=== PATIENT | female | born 1945 | race Caucasian/White ===

== ENCOUNTER 2016-12-03 | Outpatient (CLI) | payer MEDICARE | END 2016-12-03 06:42 | disposition critical access hospital (66) | CPT/HCPCS: A0425; A0429 ==

== ENCOUNTER 2016-12-03 06:52 | Emergency (ER) | payer MEDICARE ==
[2016-12-03] MEDS ORDERED: SODIUM CHLORIDE 0.9% 1,000 ML IV ONE (07:36)
[2016-12-03] MEDS ORDERED: ONDANSETRON 4 MG/2 ML VIAL IVP STA (07:36)
[2016-12-03] MEDS ORDERED: ONDANSETRON 4 MG/2 ML VIAL ONE (07:45)
[2016-12-03] MEDS ORDERED: METOPROLOL 5 MG/5 ML VIAL IVP STA (08:50)
[2016-12-03] MEDS ORDERED: METOPROLOL 5 MG/5 ML VIAL IVP ONE (08:57)
[2016-12-03] MEDS ORDERED: ATENOLOL 25 MG TABLET PO STA (09:45)
[2016-12-03] MEDS ORDERED: ATENOLOL 25 MG TABLET ONE (09:48)
== END 2016-12-03 10:44 | disposition home or self-care (01) ==
DX: I48.91 Unspecified atrial fibrillation (principal); J06.9 Acute upper respiratory infection, unspecified; R11.2 Nausea with vomiting, unspecified; I11.0 Hypertensive heart disease with heart failure; I50.9 Heart failure, unspecified; E11.42 Type 2 diabetes mellitus with diabetic polyneuropathy; E11.51 Type 2 diabetes mellitus with diabetic peripheral angiopathy without gangrene; Z79.4 Long term (current) use of insulin; Z91.81 History of falling; Z87.891 Personal history of nicotine dependence
CPT/HCPCS: 36415; 71020; 80053; 83690; 83735; 83880; 85025; 93005; 93010; 96361; 96374; 96375; 99284; A9270

== ENCOUNTER 2017-01-11 11:16 | Outpatient (CLI) | payer MEDICARE | END 2017-01-11 11:17 | disposition home or self-care (01) | DX: I50.9 Heart failure, unspecified (principal); I48.91 Unspecified atrial fibrillation; I51.7 Cardiomegaly ==

== ENCOUNTER 2017-01-27 20:01 | Emergency (ER) | payer MEDICARE ==
[2017-01-27 20:10] VITALS: BP 124/63
--- NOTE | 2017-01-27 21:37 | XRAY Preliminary Report ---
Exam: XR Chest 2 View PA/LAT IMPRESSION: Hypoaeration without acute consolidation or pneumothorax. [facility] SITE ID: [id number]
--- NOTE | 2017-01-27 21:39 | XRAY Report ---
EXAM: CHEST RADIOGRAPHY EXAM DATE: 01/27/2017 08:56 PM. CLINICAL HISTORY: Left lower chest pain; fell one week ago. COMPARISON: Chest x-ray 12/03/2016. TECHNIQUE: 2 views. FINDINGS: Lungs/Pleura: Hypoaeration without pleural effusion or pneumothorax. No focal consolidation. Mediastinum: Normal heart size with atherosclerotic calcification. Other: None. IMPRESSION: Hypoaeration without acute consolidation or pneumothorax. [facility] Referring Provider Line: [phone] SITE ID: [id number]
--- NOTE | 2017-01-27 21:40 | ED Physician Documentation ---
History of Present Illness - Stated complaint Stated Complaint: NECK/CHEST/ABD PX - Chief complaint Chief Complaint: General - History obtained from History obtained from: Patient, Family (daughter) - History of Present Illness Timing: How many weeks ago (1) - Additonal information Additional information: The patient is a 71-year-old female who complains of pain in her left lower chest, upper abdomen, as well as the left side of her neck. Her symptoms started after falling 1 week ago when she tripped over her dog. When she fell she impacted a chair with her left lower chest wall. She denies hitting her head or losing consciousness. She presents now because of persistence of the discomfort. It is worse with cough or deep inspiration. She denies fever, vomiting, headache, or dysuria. She does report frequency of urination. Review of Systems Constitutional: denies: Fever Eyes: denies: Irritation Ears: denies: Tinnitus/ringing Nose: denies: Congestion Throat: denies: Sore throat Cardiac: reports: Chest pain / pressure (Left lower chest discomfort at the costophrenic margin.) Respiratory: denies: Dyspnea, Cough GI: reports: Abdominal Pain (Left upper abdomen.). denies: Vomiting, Diarrhea : reports: Frequency. denies: Dysuria Skin: denies: Rash, Abrasion (s) Musculoskeletal: reports: Neck pain (Left sided neck discomfort.). denies: Extremity pain, Extremity swelling Neurologic: denies: Focal weakness, Numbness, Headache, Head injury PD PAST MEDICAL HISTORY - Past Medical History Cardiovascular: Congestive heart failure, Hypertension, High cholesterol, Peripheral Vascular Disease Respiratory: Pneumonia Neuro: Peripheral neuropathy, Tremors Endocrine/Autoimmune: Type 2 diabetes GI: Chronic constipation : None HEENT: Chronic vision loss, Chronic sinusitis, Other Psych: Depression, Anxiety, Panic attacks Musculoskeletal: None Derm: Eczema - Past Surgical History Past Surgical History: Yes General: Appendectomy, Bowel surgery, Other Ortho: Arthroscopic surgery, Carpal Tunnel surgery /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 Cardiovascular: Cardiac catheterization, Other HEENT: Tonsil/Adenoidectomy - Present Medications Home Medications: Ambulatory Orders Medication Instructions Recorded Confirmed Atenolol 50 mg PO BID 10/12/13 12/03/16 Atorvastatin Calcium 40 mg PO DAILY 10/12/13 12/03/16 Clonidine HCl 0.1 mg PO DAILY 10/12/13 12/03/16 Furosemide [Lasix] 80 mg PO DAILY 10/12/13 12/03/16 LORazepam [Ativan] 1 mg PO DAILY 10/12/13 12/03/16 Levothyroxine [Synthroid] 300 mcg PO DAILY 10/12/13 12/03/16 Losartan [Cozaar] 100 mg PO DAILY 10/12/13 12/03/16 Aspirin Chewable [St Sami 81 mg PO DAILY 03/30/14 12/03/16 Aspirin] Bisacodyl [Dulcolax] 100 mg PO DAILY 03/30/14 12/03/16 Insulin Glargine,Hum.rec.anlog 30 units SUBQ QPM 03/30/14 12/03/16 [Lantus] Insulin Glargine,Hum.rec.anlog 45 units SUBQ QDAC 03/30/14 12/03/16 [Lantus] Loratadine [Claritin] 10 mg PO DAILY 03/30/14 12/03/16 Potassium Chloride [Micro-K] 10 meq PO DAILY 03/30/14 12/03/16 Triamcinolone Acetonide 0.1 - 0.5 mg TOP DAILY PRN 03/30/14 12/03/16 Acetaminophen [Tylenol Extra 2 tab PO Q4HR 07/17/14 12/03/16 Strength] Albuterol Sulfate [Proair Hfa 2 puffs IH QID #1 hfa.aer.ad 12/03/16 Inhaler] Dexamethasone [Decadron] 4 mg PO DAILY #5 tablet 12/03/16 Escitalopram Oxalate [Lexapro] 1 tab PO DAILY 12/03/16 12/03/16 Ondansetron Odt [Zofran] 4 mg TL Q6H PRN #15 tablet 12/03/16 guaiFENesin/CODEINE [Robitussin AC] 10 ml PO Q6H PRN #240 ml 12/03/16 - Allergies Allergies/Adverse Reactions: Allergies Allergy/AdvReac Type Severity Reaction Status Date / Time tree nut Allergy Anaphylaxis Verified 01/27/17 20:11 Sulfa (Sulfonamide AdvReac Intermediate Edema Verified 12/03/16 07:08 Antibiotics) lisinopril AdvReac Itching Verified 12/03/16 07:08 - Social History Does the pt smoke?: No Smoking Status: Former smoker Does the pt drink ETOH?: No Does the pt have substance abuse?: No - Immunizations Immunizations are current?: Yes - POLST Patient has POLST: Yes PD ED PE NORMAL - Vitals Vital signs reviewed: Yes (normal) - General General: Alert and oriented X 3, Well developed/nourished - HEENT HEENT: Atraumatic, EOMI, Pharynx benign - Neck Neck: Supple, no meningeal sign, No bony TTP, No adenopathy, No JVD, Other ( There is mild tenderness to palpation over the left posterior cervical musculature. There is no tenderness to palpation over the spinous processes, and the patient can turn her head from side to side with no posterior cervical tenderness.) - Cardiac Cardiac: RRR, No murmur - Respiratory Respiratory: No respiratory distress, Clear bilaterally, Other (There is mild tenderness to palpation over the lower left chest wall in the anterior axillary line. There is no ecchymosis, break in the integument, or bony step-off palpated.) - Abdomen Abdomen: Soft, Non tender - Back Back: No CVA TTP, No spinal TTP - Derm Derm: No rash - Extremities Extremities: No edema, No calf tenderness / cord - Neuro Neuro: Alert and oriented X 3, No motor deficit, Normal speech, Other (There is gross tremor involving particularly the left upper extremity.) Results - Vitals Vitals: Oxygen O2 Source Room air - Rads (name of study) 2-view CXR Radiology: Prelim report reviewed, EMP read contemporaneously, See rad report ( Hypoaeration without acute consolidation or pneumothorax.) PD MEDICAL DECISION MAKING - ED course Complexity details: reviewed results, re-evaluated patient, considered differential, d/w patient, d/w family ED course: The patient's presentation is most consistent with contusion to the left chest wall secondary to falling 1 week ago. Chest x-ray reveals no acute cardiopulmonary abnormality. Her presentation does not suggest pulmonary embolus or ischemic heart disease. I discussed with her and her daughter the results of the chest x-ray, expected course of healing, symptomatic treatment, as well as potentially worrisome signs or symptoms that should prompt reevaluation in the emergency department. Departure - Departure Disposition: 01 Home, Self Care Clinical Impression: Contusion, chest wall Qualifiers: Encounter type: initial encounter Laterality: left Qualified Code(s): S20.212A - Contusion of left front wall of thorax, initial encounter Fall Qualifiers: Encounter type: initial encounter Qualified Code(s): W19.XXXA - Unspecified fall, initial encounter Condition: Stable Instructions: ED Contusion Chest Wall Follow-Up: Gilbert Werner MD [Provider Admit Priv/Credential] - Comments: Use Tylenol or ibuprofen if needed for discomfort. Let pain be your guide to activity level. Follow up with your primary physician within one to 2 weeks for reevaluation. Call to schedule a followup appointment. Return to the emergency department if you develop increasing difficulty breathing, or otherwise worsening symptoms. Discharge Date/Time: 01/27/17 21:57
== END 2017-01-27 21:57 | disposition home or self-care (01) ==
LOC: ED 20:01
DX: S20.212A Contusion of left front wall of thorax, initial encounter (principal); R10.12 Left upper quadrant pain; M54.2 Cervicalgia; W01.190A Fall on same level from slipping, tripping and stumbling with subsequent striking against furniture, initial encounter; R35.0 Frequency of micturition; E11.42 Type 2 diabetes mellitus with diabetic polyneuropathy; E11.51 Type 2 diabetes mellitus with diabetic peripheral angiopathy without gangrene; Z79.4 Long term (current) use of insulin; I11.0 Hypertensive heart disease with heart failure; I50.9 Heart failure, unspecified; Z79.82 Long term (current) use of aspirin; Z87.891 Personal history of nicotine dependence
CPT/HCPCS: 71020; 99283

== ENCOUNTER 2017-05-21 18:20 | Inpatient (IN) | payer MEDICARE ==
[2017-05-21] MEDS ORDERED: LEVALBUTEROL 1.25 MG INH ONE (18:28)
[2017-05-21] MEDS ORDERED: SODIUM CHLORIDE INHALATION 3 ML NEB ONE (18:28)
[2017-05-21] MEDS ORDERED: LEVALBUTEROL 1.25 MG INH STA (18:44)
[2017-05-21 19:07] LABS: BASOPHILS # (AUTO) 0.1 10^3/uL (0.0-0.1); BASOPHILS % (AUTO) 0.7 %; EOSINOPHILS # (AUTO) 0.4 10^3/uL (0.0-0.7); EOSINOPHILS % (AUTO) 3.6 %; HCT - HEMATOCRIT 41.1 % (37.0-47.0); HGB - HEMOGLOBIN 13.5 g/dL (12.0-16.0); LYMPHOCYTES # (AUTO) 1.8 10^3/uL (1.5-3.5); LYMPHOCYTES % (AUTO) 16.9 %; MEAN CORPUSCULAR HEMOGLOBIN 31.1 pg (27.0-31.0); MEAN CORPUSCULAR HGB CONC 32.9 g/dL (32.0-36.0); MEAN CORPUSCULAR VOLUME 94.4 fL (81.0-99.0); MONOCYTES # (AUTO) 0.8 10^3/uL (0.0-1.0); MONOCYTES % (AUTO) 7.2 %; NEUTROPHILS # (AUTO) 7.7 10^3/uL (1.5-6.6); NEUTROPHILS % (AUTO) 71.6 %; RED BLOOD COUNT 4.35 10^6/uL (4.20-5.40); RED CELL DISTRIBUTION WIDTH 14.2 % (12.0-15.0); UNCORRECTED WHITE BLOOD COUNT 10.7 x10^3/uL; WHITE BLOOD COUNT 10.7 x10^3/uL (4.8-10.8)
--- NOTE | 2017-05-21 19:13 | ED Physician Documentation ---
PD HPI DYSPNEA - Stated complaint Stated Complaint: SOA - Chief complaint Chief Complaint: Resp - History obtained from History obtained from: Patient, Family - History of Present Illness Timing - onset: How many days ago (several) Timing - onset during: Rest Timing - duration: Days (several) Timing - details: Gradual onset Pain level max: 0 Pain level now: 0 Inciting event(s): No: Out of meds, URI, Allergic rxn/anaphylaxis, Exercise Improved by: O2, Inhaler/neb, Rest Worsened by: Exertion Associated symptoms: Cough, Wheezing. No: Fever, Hemoptysis, Chest pain / discomfort Similar symptoms before: Diagnosis (COPD) Recently seen: Not recently seen Review of Systems Ten Systems: 10 systems reviewed and negative Constitutional: denies: Fever, Chills Ears: denies: Ear pain Throat: denies: Sore throat Cardiac: denies: Chest pain / pressure GI: denies: Abdominal Pain, Nausea, Vomiting, Diarrhea Skin: denies: Rash Musculoskeletal: denies: Neck pain, Back pain Neurologic: denies: Focal weakness, Numbness, Confused, Altered mental status, Headache PD PAST MEDICAL HISTORY - Past Medical History Past Medical History: Yes Cardiovascular: Congestive heart failure, Hypertension, High cholesterol, Peripheral Vascular Disease Respiratory: COPD, Pneumonia Neuro: Peripheral neuropathy, Tremors Endocrine/Autoimmune: Type 2 diabetes GI: Chronic constipation : None HEENT: Chronic vision loss, Chronic sinusitis, Other Psych: Depression, Anxiety, Panic attacks Musculoskeletal: None Derm: Eczema - Past Surgical History Past Surgical History: Yes General: Appendectomy, Bowel surgery, Other Ortho: Arthroscopic surgery, 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 Cardiovascular: Cardiac catheterization, Other HEENT: Tonsil/Adenoidectomy - Present Medications Home Medications: Ambulatory Orders Medication Instructions Recorded Confirmed Atenolol 50 mg PO BID 10/12/13 05/21/17 Atorvastatin Calcium 80 mg PO DAILY 10/12/13 05/21/17 Clonidine HCl 0.1 mg PO DAILY 10/12/13 05/21/17 Furosemide [Lasix] 80 mg PO DAILY 10/12/13 05/21/17 LORazepam [Ativan] 1 mg PO DAILY 10/12/13 05/21/17 Levothyroxine [Synthroid] 300 mcg PO DAILY 10/12/13 05/21/17 Losartan [Cozaar] 100 mg PO DAILY 10/12/13 05/21/17 Aspirin Chewable [St Sami 81 mg PO DAILY 03/30/14 05/21/17 Aspirin] Bisacodyl [Dulcolax] 100 mg PO DAILY 03/30/14 05/21/17 Insulin Glargine,Hum.rec.anlog 30 units SUBQ QPM 03/30/14 05/21/17 [Lantus] Insulin Glargine,Hum.rec.anlog 45 units SUBQ QDAC 03/30/14 05/21/17 [Lantus] Loratadine [Claritin] 10 mg PO DAILY 03/30/14 05/21/17 Potassium Chloride [Micro-K] 10 meq PO DAILY 03/30/14 05/21/17 Triamcinolone Acetonide 0.1 - 0.5 mg TOP DAILY PRN 03/30/14 05/21/17 Acetaminophen [Tylenol Extra 2 tab PO Q4HR 07/17/14 05/21/17 Strength] Escitalopram Oxalate [Lexapro] 1 tab PO DAILY 12/03/16 05/21/17 - Allergies Allergies/Adverse Reactions: Allergies Allergy/AdvReac Type Severity Reaction Status Date / Time tree nut Allergy Anaphylaxis Verified 01/27/17 20:11 Sulfa (Sulfonamide AdvReac Intermediate Edema Verified 12/03/16 07:08 Antibiotics) lisinopril AdvReac Itching Verified 12/03/16 07:08 - Social History Does the pt smoke?: No Smoking Status: Former smoker Does the pt drink ETOH?: No Does the pt have substance abuse?: No - Immunizations Immunizations are current?: Yes - POLST Patient has POLST: Yes PD ED PE NORMAL - Vitals Vital signs reviewed: Yes - General General: Alert and oriented X 3, No acute distress, Well developed/nourished - HEENT HEENT: PERRL, Moist mucous membranes - Neck Neck: Supple, no meningeal sign - Cardiac Cardiac: RRR - Respiratory Respiratory: No respiratory distress, Other (Diminished breath sounds bilaterally with wheezing) - Abdomen Abdomen: Soft, Non tender, Non distended - Back Back: No spinal TTP - Derm Derm: Warm and dry, No rash - Extremities Extremities: No calf tenderness / cord, Other (2+ lower extremity edema) - Neuro Neuro: Alert and oriented X 3 - Psych Psych: Normal mood, Normal affect Results - Vitals Vitals: Vital Signs - 24 hr 05/21/17 05/21/17 05/21/17 18:24 18:30 18:39 Temperature 36.0 C L Heart Rate 70 66 66 Respiratory 20 17 20 Rate Blood Pressure 221/65 H 216/82 H O2 Saturation 63 L 95 05/21/17 05/21/17 05/21/17 18:40 18:45 19:00 Temperature Heart Rate 62 67 68 Respiratory 20 20 20 Rate Blood Pressure 191/87 H 191/87 H 139/83 H O2 Saturation 92 93 93 05/21/17 05/21/17 05/21/17 19:28 19:57 20:15 Temperature 36.4 C L Heart Rate 70 75 84 Respiratory 21 20 20 Rate Blood Pressure 212/66 H 139/76 H O2 Saturation 92 93 Oxygen O2 Source Nasal cannula Oxygen Flow Rate 2 - Labs Labs: Laboratory Tests 05/21/17 05/21/17 18:59 18:59 WBC 10.7 RBC 4.35 Hgb 13.5 Hct 41.1 MCV 94.4 MCH 31.1 H MCHC 32.9 RDW 14.2 Plt Count 284 MPV 8.0 Neut # 7.7 H Lymph # 1.8 [place] # 0.8 Eos # 0.4 Baso # 0.1 Absolute Nucleated RBC 0.00 Nucleated RBCs 0.0 Sodium 140 Potassium 4.4 Chloride 102 Carbon Dioxide 30 Anion Gap 8.0 BUN 17 Creatinine 1.0 Estimated GFR (MDRD) 55 L Glucose 269 H Calcium 9.2 Total Bilirubin 0.8 AST 25 ALT 22 Alkaline Phosphatase 103 Total Protein 6.9 Albumin 3.8 Globulin 3.1 Albumin/Globulin Ratio 1.2 Lipase 19 L - Rads (name of study) Chest x-ray Radiology: Prelim report reviewed, EMP read contemporaneously, See rad report ( Mild vascular congestion. Hypoventilatory changes with bibasilar consolidation/ atelectasis) PD MEDICAL DECISION MAKING - ED course Complexity details: reviewed old records, reviewed results, re-evaluated patient , considered differential, d/w patient, d/w family, d/w consultants intern ED course: Patient is a 71-year-old female who has an apparent COPD flare. No fevers. Does have persistent hypoxia despite nebulizer treatments and steroids. Approximately 86-88% on room air lying in bed, when she stands up to walk she drops quickly to the 60s. Recently had a cardiac stress test which was reportedly negative [facility]. Also had pulmonary function testing that was reportedly consistent with COPD. She is not on any long-acting bronchodilators for COPD medications at home. Discussed the case with Dr. Flaherty , hospitalist who accepts. This document was made in part using voice recognition software. While efforts are made to proofread this document, sound alike and grammatical errors may occur. Departure - Departure Disposition: 66 [facility] DC/Xfer Clinical Impression: COPD with acute exacerbation, Hypoxia Hypertension Qualifiers: Hypertension type: essential hypertension Qualified Code(s): I10 - Essential ( primary) hypertension Condition: Stable Discharge Date/Time: 05/21/17 21:39
[2017-05-21] MEDS ORDERED: methylPREDNISolone SUCCINATE 125 MG/2 ML VIAL IVP STA (19:15)
[2017-05-21] MEDS ORDERED: IPRATROPIUM/ALBUTEROL 3 ML NEB INH STA (19:15)
[2017-05-21 19:20] LABS: ALBUMIN/GLOBULIN RATIO 1.2 (1.0-2.2); BILIRUBIN,TOTAL 0.8 mg/dL (0.2-1.0); CALCIUM 9.2 mg/dL (8.5-10.3); POTASSIUM 4.4 mmol/L (3.5-5.0); TOTAL PROTEIN 6.9 g/dL (6.7-8.2)
[2017-05-21] MEDS ORDERED: methylPREDNISolone SUCCINATE 125 MG/2 ML VIAL IVP ONE (19:20)
[2017-05-21] MEDS ORDERED: IPRATROPIUM/ALBUTEROL 3 ML NEB INH ONE (19:35)
--- NOTE | 2017-05-21 19:44 | XRAY Preliminary Report ---
Exam: XR Chest 1 View IMPRESSION: 1. Mild vascular congestion. 2. Hypoventilatory changes with bibasilar consolidation/atelectasis. [facility] SITE ID: [id number]
--- NOTE | 2017-05-21 19:46 | XRAY Report ---
EXAM: CHEST RADIOGRAPHY EXAM DATE: 05/21/2017 07:26 PM. CLINICAL HISTORY: Dyspnea. COMPARISON: 01/27/2017. 12/03/2016. TECHNIQUE: 1 view. FINDINGS: Lungs/Pleura: Mild vascular congestion. Lung volumes are low. There are bibasilar opacities. No pneum othorax. Mediastinum: Heart size and mediastinal contour are stable. Other: None. IMPRESSION: 1. Mild vascular congestion. 2. Hypoventilatory changes with bibasilar consolidation/atelectasis. [facility] Referring Provider Line: [phone] SITE ID: [id number]
[2017-05-21] MEDS ORDERED: HYDROcod/ACETAM 5/325 MG TABLET PO PRN (20:33)
[2017-05-21] MEDS ORDERED: SODIUM CHLORIDE FLUSH 0.9% 10 ML SYRINGE IVP PRN (20:33)
[2017-05-21] MEDS ORDERED: ONDANSETRON 4 MG/2 ML VIAL IVP PRN (20:33)
[2017-05-21] MEDS ORDERED: ACETAMINOPHEN 325 MG TABLET PO PRN (20:33)
[2017-05-21] MEDS ORDERED: ZOLPIDEM 5 MG TABLET PO PRN (20:33)
[2017-05-21] MEDS ORDERED: PROCHLORPERAZINE 10 MG/2 ML VIAL IVP PRN (20:33)
[2017-05-21] MEDS ORDERED: INSULIN GLARGINE HUM REC ANLOG 30 UNIT SUBQ SCH (21:00)
[2017-05-21] MEDS ORDERED: INSULIN ASPART 300 UNIT/3 ML PEN SUBQ SCH (21:00)
[2017-05-21] MEDS ORDERED: LORazepam 0.5 MG TABLET PO PRN (21:19)
--- NOTE | 2017-05-21 22:06 | HISTORY & PHYSICAL EXAMINATION ---
Chief Complaint - Chief Complaint Chief Complaint: shortness of air History of Present Illness - Admitted From Admitted From:: emergency department - History Obtained From Records Reviewed: yes History obtained from: patient Exam Limitations: none - History of Present Illness HPI Comment/Other: The patient is a 71-year-old female with a past medical history significant for insulin-dependent diabetes, hypertension, hyperlipidemia, morbid obesity, hypothyroidism, diastolic heart failure, depression and recent diagnosis of COPD who presents to the emergency department with a chief complaint of shortness of air. The patient states that she was recently worked up by her PCP and bsa officer as she was having chronically worsening shortness of breath and syncopal episodes. The patient states that she underwent a nuclear stress test, PFTs and Holter monitoring. She states that the only thing that her doctors found is that she has COPD. She states that she was not started on any treatment for COPD. The patient states that she was in her normal state of health actually feeling as well as she has in months until yesterday evening when she began experiencing shortness of air. The patient's daughter states that she called her on the phone and noticed that she was having labored breathing. The patient states that she was feeling short of breath with just doing the laundry. The patient denies any cough, fever, chills, orthopnea or increased lower extremity swelling. The patient does state that on 05-15 she stopped using Lasix. She states that for years she was on 80 mg of Lasix every morning however because of how often she had to go to the bathroom she was needing to wear a diaper. She states that she talked in over with her primary care doctor and decided to back off and has stopped taking Lasix since then. The patient states that her shortness of air continued to progress throughout the night and then into this morning. She states that she began experiencing shortness of breath at rest and was having a hard time catching her breath this evening when she checked her blood pressure she found it was 213/96 therefore she was rushed into the emergency department. The patient otherwise denies any headaches, blurred vision , runny nose, sore throat, nausea, vomiting, abdominal pain, urinary urgency, urinary frequency, dysuria, muscle aches or joint pains, changes in weight or changes in appetite, skin changes or focal neurologic deficits. On presentation to the emergency department the patient was in respiratory distress, with audible wheezes and had an oxygen saturation of 63% on room air with a blood pressure of 221/65. The patient's lab work showed no significant abnormalities. Her EKG did not show any ST elevations or ischemic changes. The patient chest x-ray revealed mild vascular congestion but no obvious pneumonia. The patient was treated with nebulizer treatments and Solu-Medrol in the emergency department. After treatment the patient had significant improvement and she was able to be weaned down to 2 L of oxygen saturating around 92%. When the patient did get up to ambulate to the bathroom her oxygen saturation dropped again into the 60s with exertion. The patient was admitted with acute respiratory failure with hypoxia secondary to COPD exacerbation and CHF exacerbation. Review of Systems - Other Findings Other Findings: A comprehensive review of systems was performed the pertinent positives and negatives are stated above in the HPI and the remainder of the review of systems is negative. History - Past Medical History Cardiovascular: reports: Congestive heart failure, Hypertension, High cholesterol, Peripheral Vascular Disease Respiratory: reports: COPD, Pneumonia Neuro: reports: Peripheral neuropathy, Tremors Endocrine/Autoimmune: reports: Type 2 diabetes GI: reports: Chronic constipation : reports: None HEENT: reports: Chronic vision loss, Chronic sinusitis, Other Psych: reports: Depression, Anxiety, Panic attacks Musculoskeletal: reports: None Derm: reports: Eczema MRSA Hx?: No Other Past Medical History: 1. Insulin-dependent diabetes. 2. Hypertension. 3. Hyperlipidemia. 4. Morbid obesity. 5. Hypothyroidism. 6. Depression. 7. Diastolic heart failure with a preserved ejection fraction. 8. Coronary artery disease without clinically significant stenosis. 9. Eczema. 10. Anxiety. 11. History of pneumonia. 12. Status post appendectomy. 13. Status post tonsillectomy, adenoidectomy - Past Surgical History General: reports: Appendectomy, Bowel surgery, Other Ortho: reports: Arthroscopic surgery, Carpal Tunnel surgery /TONG CARRIER: reports: Dilation and currettage Cardiovascular: reports: Cardiac catheterization, Other HEENT: reports: Tonsil/Adenoidectomy - Family & Social History Family History Comment/Other: The patient's mom at the age of 90 of old age. Dad at the age of 86 of old age. She had 3 brothers: One of complications of leukemia, the other 2 are alive and healthy. Living arrangement: At home Living Situation: Alone Social History Notes: The patient has been twice. Her second of metastatic cancer 10/18/2013. 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 She worked at [employer] in [place], [employer] in [place], [place] and various hospitals in [place]. 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 Although the patient has no biological children she has a very close friend whom she calls her daughter and who is also her durable power of defense attorney. The patient has never been a heavy drinker. She is a remote history of smoking. She started the age of 18 and stopped approximately at the age of 28 and smoked one pack per day. She moved to [facility] in 1991. She currently lives with a dog and 2 cats. - Substance History Use: Uses substance without health or social issues: NONE Abuse: Recurrent use of substance despite neg consequences: NONE Dependence: Experiences withdrawal or developed tolerances: NONE - POLST Patient has POLST: No POLST Status: DNR Meds/Allgy - Home Medications Home Medications: Ambulatory Orders Medication Instructions Recorded Confirmed Atenolol 50 mg PO BID 10/12/13 05/21/17 Atorvastatin Calcium 80 mg PO DAILY 10/12/13 05/21/17 Clonidine HCl 0.1 mg PO DAILY 10/12/13 05/21/17 Furosemide [Lasix] 80 mg PO DAILY 10/12/13 05/21/17 LORazepam [Ativan] 1 mg PO DAILY 10/12/13 05/21/17 Levothyroxine [Synthroid] 300 mcg PO DAILY 10/12/13 05/21/17 Losartan [Cozaar] 100 mg PO DAILY 10/12/13 05/21/17 Aspirin Chewable [[place] Sami 81 mg PO DAILY 03/30/14 05/21/17 Aspirin] Bisacodyl [Dulcolax] 100 mg PO DAILY 03/30/14 05/21/17 Insulin Glargine,Hum.rec.anlog 30 units SUBQ QPM 03/30/14 05/21/17 [Lantus] Insulin Glargine,Hum.rec.anlog 45 units SUBQ QDAC 03/30/14 05/21/17 [Lantus] Loratadine [Claritin] 10 mg PO DAILY 03/30/14 05/21/17 Potassium Chloride [Micro-K] 10 meq PO DAILY 03/30/14 05/21/17 Triamcinolone Acetonide 0.1 - 0.5 mg TOP DAILY PRN 03/30/14 05/21/17 Acetaminophen [Tylenol Extra 2 tab PO Q4HR 07/17/14 05/21/17 Strength] Escitalopram Oxalate [Lexapro] 1 tab PO DAILY 12/03/16 05/21/17 - Allergies Allergies/Adverse Reactions: Allergies Allergy/AdvReac Type Severity Reaction Status Date / Time tree nut Allergy Anaphylaxis Verified 01/27/17 20:11 Sulfa (Sulfonamide AdvReac Intermediate Edema Verified 12/03/16 07:08 Antibiotics) lisinopril AdvReac Itching Verified 12/03/16 07:08 Exam - Vital Signs Reviewed Vital Signs: Yes Vital Signs: Vital Signs x48h Temp Pulse Pulse Resp BP BP Pulse Ox 05/21/17 21:56 36.6 C 86 16 178/72 H 92 05/21/17 21:12 88 15 189/54 H 93 05/21/17 20:58 89 20 207/66 H 92 - Physical Exam General Appearance: positive: Alert, Mild distress (short of breath and using asscessory muscles of breath), Anxious Eyes Bilateral: positive: Normal inspection, PERRL, EOMI, No lid inflammation, Conjunctivae nml, No scleral icterus ENT: positive: ENT inspection nml, Pharynx nml, No signs of dehydration. negative: Purulent nasal drainage, Pharyngeal erythema, Oral lesions Neck: positive: Nml inspection, Thyroid nml, No JVD, Trachea midline. negative : Thyromegaly, Lymphadenopathy (R), Lymphadenopathy (L), Carotid bruit, Tracheal deviation Respiratory: positive: Chest non-tender, Wheezes (scatterted, expiratory), Rales (bilateral bases), Other (mild respiratory distress with use of accessory muscles of breath and increased effort) Cardiovascular: positive: Regular rate & rhythm, No murmur, No gallop Peripheral Pulses: positive: 2+ Abdomen: positive: Non-tender, No organomegaly, Nml bowel sounds, No distention. negative: Guarding, Rebound, Hepatomegaly Back: positive: Nml inspection. negative: CVA tenderness (R), CVA tenderness (L ) Skin: positive: Color nml, No rash. negative: Cyanosis, Pallor Extremities: positive: Non-tender, Full ROM, Nml appearance, No pedal edema. negative: Joint swelling Neurologic/Psychiatric: positive: Oriented x3, CN's nml (2-12), Motor nml, Sensation nml Conclusion/Plan - Problem List (1) Acute respiratory failure with hypoxia Conclusion/Plan: Patient presents to the emergency department in respiratory distress with an O2 saturation of 64% on room air. Patient's O2 sats did improve with oxygen and breathing treatments. The patient also took a dose of Lasix prior to coming to the emergency department. The patient however continued to remain hypoxic and O2 saturations dropped once again when she ambulated to go to the bathroom. Cause of acute respiratory failure appears to be multifactorial secondary to COPD exacerbation as patient did have wheezing on examination and improved with nebulizer treatments. Patient also appears to have acute exacerbation of her chronic diastolic heart failure likely secondary to accelerated hypertension. Patient's chest x-ray and EKG were negative. Plan: Supplemental oxygen Treatment of COPD with duo nebs [id number] and when necessary, steroids and antibiotics Treatment of accelerated hypertension with addition of IV Lasix and continuation of home meds. Treatment of pulmonary edema with IV Lasix (2) COPD with acute exacerbation Conclusion/Plan: The patient was recently diagnosed with COPD on pulmonary function tests done as an outpatient. Patient however was not placed on any inhalers, nebulizers or long-acting medications. The patient does have a history of smoking but quit many years ago. Patient presented with acute respiratory failure with hypoxemia. She had wheezing and respiratory distress on presentation. She improved with nebulizer treatments in the emergency department and steroids. Plan: DuoNeb around the clock x24 hours and as needed IV Solu-Medrol 3 times a day Azithromycin Supplemental oxygen Patient will likely need rescue inhalers and a long-acting beta agonist and inhaled corticosteroid at discharge. (3) Acute exacerbation of CHF (congestive heart failure) Conclusion/Plan: The patient has a history of congestive heart failure. Looking at her previous echo it appears that she has grade 2 diastolic dysfunction with a preserved ejection fraction. Patient has had a recent workup with a nuclear stress test that was negative for any significant stenosis. The patient presented with acute respiratory failure secondary to hypoxemia, she was in respiratory distress on presentation with decelerate hypertension and found to have some mild vascular congestion her chest x-ray as well as crackles on her examination. Patient likely went into diastolic heart failure secondary to accelerated hypertension Patient had stopped taking Lasix about one week ago this may of contributed to her hypertension and failure. The patient did take Lasix prior to coming to the emergency department. Plan: Give patient IV Lasix 80 mg daily Monitor I/O Supplemental oxygen Blood pressure control Qualifiers: Congestive heart failure type: diastolic Qualified Code(s): I50.33 - Acute on chronic diastolic (congestive) heart failure (4) Accelerated hypertension Conclusion/Plan: The patient presented to the emergency department in respiratory distress with hypoxia. The patient's blood pressure at home was 213/96 and on presentation to the emergency department continued to be very elevated. The patient's accelerated hypertension likely contributed to her respiratory failure as it resulted in pulmonary edema due to her diastolic heart failure. This was likely secondary to patient having stopped Lasix for the last week which may have caused her blood pressure to become elevated. Plan: Start patient on IV Lasix Continue home medications Monitor patient's blood pressure and titrate medications as needed. Patient will likely need to restart her Lasix at home (5) Diabetes Conclusion/Plan: patient has insulin-dependent diabetes She is on Lantus twice a day at home we will continue her Lantus while she is hospitalized Patient will be placed on sliding scale insulin and have her blood sugars monitored a.c. at bedtime We will check hemoglobin A1c while she is hospitalized. Qualifiers: Diabetes mellitus type: type 2 (6) Hypothyroidism Conclusion/Plan: Patient has history of hypothyroidism and is on Synthroid at home. We will continue the patient's home dose of Synthroid, we will check a TSH. (7) Anxiety Conclusion/Plan: Patient feels anxious about being in hospitals. She uses lorazepam at home. She asks that we make sure we give it to her at night. She is also on Lexapro which helps with her depression and anxiety. We will continue both medications well the patient is hospitalized and placed her on lorazepam as needed for anxiety. (8) Prophylactic use of low molecular weight heparin for venous thromboembolism Conclusion/Plan: Placed on Lovenox while hospitalized - Lab Results Lab results reviewed: Yes Fish Bones: 05/21/17 18:59 05/21/17 18:59 Other Lab Results: Laboratory Results WBC 10.7 x10^3/uL (4.8-10.8) 05/21/17 18:59 RBC 4.35 10^6/uL (4.20-5.40) 05/21/17 18:59 Hgb 13.5 g/dL (12.0-16.0) 05/21/17 18:59 Hct 41.1 % (37.0-47.0) 05/21/17 18:59 MCV 94.4 fL (81.0-99.0) 05/21/17 18:59 MCH 31.1 pg (27.0-31.0) H 05/21/17 18:59 MCHC 32.9 g/dL (32.0-36.0) 05/21/17 18:59 RDW 14.2 % (12.0-15.0) 05/21/17 18:59 Plt Count 284 10^3/uL (130-450) 05/21/17 18:59 MPV 8.0 fL (7.9-10.8) 05/21/17 18:59 Neut # 7.7 10^3/uL (1.5-6.6) H 05/21/17 18:59 Lymph # 1.8 10^3/uL (1.5-3.5) 05/21/17 18:59 Gage # 0.8 10^3/uL (0.0-1.0) 05/21/17 18:59 Eos # 0.4 10^3/uL (0.0-0.7) 05/21/17 18:59 Baso # 0.1 10^3/uL (0.0-0.1) 05/21/17 18:59 Absolute Nucleated RBC 0.00 x10^3/uL 05/21/17 18:59 Nucleated RBCs 0.0 /100WBC 05/21/17 18:59 Sodium 140 mmol/L (135-145) 05/21/17 18:59 Potassium 4.4 mmol/L (3.5-5.0) 05/21/17 18:59 Chloride 102 mmol/L (101-111) 05/21/17 18:59 Carbon Dioxide 30 mmol/L (21-32) 05/21/17 18:59 Anion Gap 8.0 (6-13) 05/21/17 18:59 BUN 17 mg/dL (6-20) 05/21/17 18:59 Creatinine 1.0 mg/dL (0.4-1.0) 05/21/17 18:59 Estimated GFR (MDRD) 55 (>89) L 05/21/17 18:59 Glucose 269 mg/dL (70-100) H 05/21/17 18:59 POC Whole Bld Glucose 298 mg/dL (70 - 100) H 05/21/17 21:48 Calcium 9.2 mg/dL (8.5-10.3) 05/21/17 18:59 Total Bilirubin 0.8 mg/dL (0.2-1.0) 05/21/17 18:59 AST 25 IU/L (10-42) 05/21/17 18:59 ALT 22 IU/L (10-60) 05/21/17 18:59 Alkaline Phosphatase 103 IU/L (42-121) 05/21/17 18:59 Total Protein 6.9 g/dL (6.7-8.2) 05/21/17 18:59 Albumin 3.8 g/dL (3.2-5.5) 05/21/17 18:59 Globulin 3.1 g/dL (2.1-4.2) 05/21/17 18:59 Albumin/Globulin Ratio 1.2 (1.0-2.2) 05/21/17 18:59 Lipase 19 U/L (22-51) L 05/21/17 18:59 - Diagnostic Imaging Results Diagnostic Imaging Results: positive: Final report reviewed - EKG Results EKG Interpreted Independently: Yes EKG Findings: Normal sinus rhythm, no ST elevation. EKG computer read says atrial flutter but there appears to be P wave present on EKG. Issues/Core Measures - Anticipated LOS Anticipated Stay Length: 2 or more midnights - DVT/VTE - Prophylaxis VTE/DVT Prophylaxis med ordered at admit?: Yes
[2017-05-21] MEDS: AZITHROMYCIN 250 MG TABLET PO SCH (22:27)
[2017-05-21] MEDS: ATENOLOL 25 MG TABLET PO SCH (22:27)
[2017-05-21] MEDS: FUROSEMIDE 40 MG/4 ML VIAL IVP SCH (22:27)
[2017-05-21] MEDS: SODIUM CHLORIDE FLUSH 0.9% 10 ML SYRINGE IVP SCH (22:36)
[2017-05-21] MEDS: INSULIN GLARGINE 300 UNIT/3 ML PEN SUBQ SCH (22:43)
[2017-05-21] MEDS: cloNIDine 0.1 MG TABLET PO SCH (22:47)
[2017-05-21] MEDS: LORazepam 0.5 MG TABLET PO SCH (22:47)
[2017-05-22 05:58] LABS: BASOPHILS % (AUTO) 0.2 %; HCT - HEMATOCRIT 42.6 % (37.0-47.0); HGB - HEMOGLOBIN 13.9 g/dL (12.0-16.0); LYMPHOCYTES % (AUTO) 4.4 %; MEAN CORPUSCULAR HEMOGLOBIN 30.7 pg (27.0-31.0); MEAN CORPUSCULAR HGB CONC 32.6 g/dL (32.0-36.0); MEAN CORPUSCULAR VOLUME 94.2 fL (81.0-99.0); MEAN PLATELET VOLUME 8.4 fL (7.9-10.8); MONOCYTES % (AUTO) 0.3 %; NEUTROPHILS % (AUTO) 95.1 %; RED BLOOD COUNT 4.53 10^6/uL (4.20-5.40); RED CELL DISTRIBUTION WIDTH 14.8 % (12.0-15.0); UNCORRECTED WHITE BLOOD COUNT 11.2 x10^3/uL; WHITE BLOOD COUNT 11.2 x10^3/uL (4.8-10.8)
[2017-05-22 06:00] LABS: POTASSIUM 4.3 mmol/L (3.5-5.0)
[2017-05-22] MEDS: methylPREDNISolone SUCCINATE 40 MG/ML VIAL IVP SCH ×3 (06:11→21:25)
[2017-05-22] MEDS: SODIUM CHLORIDE FLUSH 0.9% 10 ML SYRINGE IVP SCH ×3 (06:11→21:29)
[2017-05-22] MEDS: PANTOPRAZOLE 40 MG TABLET PO SCH (06:13)
[2017-05-22 06:20] LABS: BAND NEUTROPHILS % (MANUAL) 5 %; LYMPHOCYTES % (MANUAL) 2 %; NEUTROPHILS % (MANUAL) 93 %; NP AUTO DIFFERENTIAL? YES; NP MAN DIFFERENTIAL? NO; PLATELET ESTIMATE, MANUAL NORMAL (130-450,000) (NORMAL); TOTAL CELLS COUNTED 100
[2017-05-22 06:27] LABS: HEMOGLOBIN A1C 1.04 g/dL
[2017-05-22] MEDS ORDERED: INSULIN GLARGINE HUM REC ANLOG 45 UNIT SUBQ SCH (07:00)
[2017-05-22] MEDS ORDERED: LEVOTHYROXINE 100 MCG TABLET PO SCH (07:00)
[2017-05-22] MEDS ORDERED: INSULIN GLARGINE 300 UNIT/3 ML PEN SUBQ SCH (07:00)
[2017-05-22] MEDS ORDERED: INSULIN ASPART 300 UNIT/3 ML PEN SUBQ SCH (08:00)
[2017-05-22] MEDS: IPRATROPIUM/ALBUTEROL 3 ML NEB INH SCH ×4 (08:50→20:42)
[2017-05-22] MEDS ORDERED: ATORVASTATIN CALCIUM 80 MG PO SCH (09:00)
[2017-05-22] MEDS ORDERED: LORazepam 0.5 MG TABLET PO SCH (09:00)
[2017-05-22] MEDS ORDERED: LOSARTAN 100 MG PO SCH (09:00)
[2017-05-22] MEDS ORDERED: ASPIRIN CHEW 81 MG TABLET PO SCH (09:00)
[2017-05-22] MEDS ORDERED: cloNIDine 0.1 MG TABLET PO SCH (09:00)
[2017-05-22] MEDS: POLYETHYLENE GLYCOL 3350 17 GM PACKET PO SCH (10:24)
[2017-05-22] MEDS: FUROSEMIDE 40 MG/4 ML VIAL IVP SCH (10:25)
[2017-05-22] MEDS: ATENOLOL 25 MG TABLET PO SCH ×2 (10:26→21:26)
[2017-05-22] MEDS: ATORVASTATIN 40 MG TABLET PO SCH (10:26)
[2017-05-22] MEDS: POTASSIUM CHLORIDE 10 MEQ CAPSULE PO SCH (10:26)
[2017-05-22] MEDS: LOSARTAN 50 MG TABLET PO SCH (10:27)
[2017-05-22] MEDS: cloNIDine 0.1 MG TABLET PO SCH (10:27)
[2017-05-22] MEDS: LORazepam 0.5 MG TABLET PO SCH (10:27)
[2017-05-22] MEDS: ENOXAPARIN 40 MG/0.4 ML SYRINGE SUBQ SCH (10:28)
[2017-05-22] MEDS: DOCUSATE SODIUM 250 MG CAPSULE PO SCH (10:28)
[2017-05-22] MEDS: ESCITALOPRAM 10 MG TABLET PO SCH (11:25)
[2017-05-22] MEDS: INSULIN ASPART 300 UNIT/3 ML PEN SUBQ SCH ×4 (11:28→21:20)
[2017-05-22] MEDS: INSULIN ASPART 300 UNIT/3 ML PEN SUBQ ONE ×2 (11:28→11:29)
[2017-05-22] MEDS ORDERED: INSULIN ASPART 300 UNIT/3 ML PEN SUBQ ONE ×2 (13:00→17:00)
--- NOTE | 2017-05-22 14:43 | PROVIDER PROGRESS NOTE ---
Subjective - Subjective Pt reports feeling: Improved (pt state she feel much better after treated. Pt report she took insuline depending how much glucose she had. She took Lantus only on evening and morning. Her glucose was unstable per pt report "sometime around 50, some time very high.") Objective - Vital Signs/Intake & Output Vital Signs: Vital Signs x48h Temp Pulse Pulse Resp BP Pulse Ox 05/22/17 12:07 36.6 C 66 16 154/76 H 93 05/22/17 11:50 62 14 05/22/17 08:50 63 14 05/22/17 08:00 36.9 C 180 H 16 165/75 H 95 Intake & Output: Intake & Output 05/19/17 05/20/17 05/21/17 05/22/17 23:59 23:59 23:59 23:59 Intake Total 1277 Balance 1277 - Objective General Appearance: positive: No acute distress, Alert. negative: Mild distress , Moderate distress, Severe distress, Anxious, Lethargic, Other Eyes Bilateral: positive: Normal inspection, PERRL. negative: EOMI, No lid inflammation, Conjunctivae nml, No scleral icterus, Other ENT: positive: ENT inspection nml, Pharynx nml, No signs of dehydration. negative: Purulent nasal drainage, Pharyngeal erythema, Oral lesions, Dry mucous membranes, Other Neck: positive: Nml inspection, Thyroid nml, Trachea midline. negative: No JVD , Thyromegaly, Lymphadenopathy (R), Lymphadenopathy (L), Stiff neck, Kernig's sign, Brudzinski's sign, Carotid bruit, Swelling/bruising, Tracheal deviation, Other Respiratory: positive: Chest non-tender, No respiratory distress, Other (just diminished lung sound bilateral). negative: Breath sounds nml, Wheezes, Rales, Rhonchi Cardiovascular: positive: Regular rate & rhythm, No murmur, No gallop. negative : Irregularly irregular, Extrasystoles, Tachycardia, Bradycardia, PMI displaced laterally, JVD present, Systolic murmur, Diastolic murmur, Gallop/S3, Gallop/S4 , Friction rub, Decreased pulse(s), Crepitus, Other Peripheral Pulses: 2+ Radial (R), 2+ Radial (L), 2+ Dorsalis pedis (R), 2+ Dorsalis pedis (L) Abdomen: positive: Non-tender, Nml bowel sounds. negative: No organomegaly, No distention, Tenderness, Guarding, Rebound, Hepatomegaly, Splenomegaly, Mass, Abnml bowel sounds, Bruit, Other Back: positive: Nml inspection. negative: CVA tenderness (R), CVA tenderness (L ), Other Skin: positive: Color nml, No rash, Warm. negative: Dry, Cyanosis, Diaphoresis , Pallor, Skin rash, Decubitus, Laceration (cm), Puncture wound, Embolic lesions , Other Extremities: positive: Non-tender, Full ROM, Nml appearance, No pedal edema. negative: Pedal edema, Calf tenderness, Joint swelling, Edda's sign/cords, Other Neurologic/Psychiatric: positive: Oriented x3, CN's nml (2-12), Motor nml, Sensation nml, Mood/affect nml. negative: Disoriented to person, Disoriented to place, Disoriented to time, Weakness, Sensory loss, Facial droop, Slurred/ abnml speech, Depressed mood/affect, Other - Lab Results Fish Bones: 05/22/17 05:30 05/22/17 05:30 Other Labs: Lab Results x24hrs 05/22/17 05/22/17 05/22/17 Range/Units 13:44 11:16 07:14 WBC (4.8-10.8) x10^3/uL RBC (4.20-5.40) 10^6/uL Hgb (12.0-16.0) g/dL Hct (37.0-47.0) % MCV (81.0-99.0) fL MCH (27.0-31.0) pg MCHC (32.0-36.0) g/dL RDW (12.0-15.0) % Plt Count (130-450) 10^3/uL MPV (7.9-10.8) fL Neut # Lymph # [place] # Eos # Baso # Absolute Nucleated RBC Total Counted Band Neuts % (Manual) (0 - 10) % Neutrophils # (Manual) (1.5-6.6) 10^3/uL Lymphocytes # (Manual) (1.5-3.5) 10^3/uL Nucleated RBCs Differential Comment Platelet Estimate (NORMAL) RBC Morph Micro Appear (NORMAL) Sodium (135-145) mmol/L Potassium (3.5-5.0) mmol/L Chloride (101-111) mmol/L Carbon Dioxide (21-32) mmol/L Anion Gap (6-13) BUN (6-20) mg/dL Creatinine (0.4-1.0) mg/dL Estimated GFR (MDRD) (>89) Glucose (70-100) mg/dL POC Whole Bld Glucose 476 H 529 H* 358 H (70 - 100) mg/dL Glycated Hemoglobin (4.6-6.2) % Estim Average Glucose (70-100) Calcium (8.5-10.3) mg/dL Troponin I (<0.49) ng/mL B-Natriuretic Peptide (5-100) pg/mL TSH (0.34-5.60) uIU/mL 05/22/17 05/22/17 05/22/17 Range/Units 05:30 05:30 05:30 WBC (4.8-10.8) x10^3/uL RBC (4.20-5.40) 10^6/uL Hgb (12.0-16.0) g/dL Hct (37.0-47.0) % MCV (81.0-99.0) fL MCH (27.0-31.0) pg MCHC (32.0-36.0) g/dL RDW (12.0-15.0) % Plt Count (130-450) 10^3/uL MPV (7.9-10.8) fL Neut # Lymph # [place] # Eos # Baso # Absolute Nucleated RBC Total Counted Band Neuts % (Manual) (0 - 10) % Neutrophils # (Manual) (1.5-6.6) 10^3/uL Lymphocytes # (Manual) (1.5-3.5) 10^3/uL Nucleated RBCs Differential Comment Platelet Estimate (NORMAL) RBC Morph Micro Appear (NORMAL) Sodium (135-145) mmol/L Potassium (3.5-5.0) mmol/L Chloride (101-111) mmol/L Carbon Dioxide (21-32) mmol/L Anion Gap (6-13) BUN (6-20) mg/dL Creatinine (0.4-1.0) mg/dL Estimated GFR (MDRD) (>89) Glucose (70-100) mg/dL POC Whole Bld Glucose (70 - 100) mg/dL Glycated Hemoglobin 8.4 H (4.6-6.2) % Estim Average Glucose 194 H (70-100) Calcium (8.5-10.3) mg/dL Troponin I (<0.49) ng/mL B-Natriuretic Peptide 417 H (5-100) pg/mL TSH 1.22 (0.34-5.60) uIU/mL 05/22/17 05/22/17 05/21/17 Range/Units 05:30 05:30 22:23 WBC 11.2 H (4.8-10.8) x10^3/uL RBC 4.53 (4.20-5.40) 10^6/uL Hgb 13.9 (12.0-16.0) g/dL Hct 42.6 (37.0-47.0) % MCV 94.2 (81.0-99.0) fL MCH 30.7 (27.0-31.0) pg MCHC 32.6 (32.0-36.0) g/dL RDW 14.8 (12.0-15.0) % Plt Count 269 (130-450) 10^3/uL MPV 8.4 (7.9-10.8) fL Neut # Not Reportable Lymph # Not Reportable [place] # Not Reportable Eos # Not Reportable Baso # Not Reportable Absolute Nucleated RBC Not Reportable Total Counted 100 Band Neuts % (Manual) 5 (0 - 10) % Neutrophils # (Manual) 11.0 H (1.5-6.6) 10^3/uL Lymphocytes # (Manual) 0.2 L (1.5-3.5) 10^3/uL Nucleated RBCs Not Reportable Differential Comment MANUAL DIFFERENTIAL Platelet Estimate NORMAL (130-450,000) (NORMAL) RBC Morph Micro Appear NORMAL APPEARANCE (NORMAL) Sodium 139 (135-145) mmol/L Potassium 4.3 (3.5-5.0) mmol/L Chloride 99 L (101-111) mmol/L Carbon Dioxide 28 (21-32) mmol/L Anion Gap 12.0 (6-13) BUN 19 (6-20) mg/dL Creatinine 1.0 (0.4-1.0) mg/dL Estimated GFR (MDRD) 55 L (>89) Glucose 369 H (70-100) mg/dL POC Whole Bld Glucose (70 - 100) mg/dL Glycated Hemoglobin (4.6-6.2) % Estim Average Glucose (70-100) Calcium 9.0 (8.5-10.3) mg/dL Troponin I (<0.49) ng/mL B-Natriuretic Peptide 337 H (5-100) pg/mL TSH (0.34-5.60) uIU/mL 05/21/17 05/21/17 Range/Units 22:23 21:48 WBC (4.8-10.8) x10^3/uL RBC (4.20-5.40) 10^6/uL Hgb (12.0-16.0) g/dL Hct (37.0-47.0) % MCV (81.0-99.0) fL MCH (27.0-31.0) pg MCHC (32.0-36.0) g/dL RDW (12.0-15.0) % Plt Count (130-450) 10^3/uL MPV (7.9-10.8) fL Neut # Lymph # [place] # Eos # Baso # Absolute Nucleated RBC Total Counted Band Neuts % (Manual) (0 - 10) % Neutrophils # (Manual) (1.5-6.6) 10^3/uL Lymphocytes # (Manual) (1.5-3.5) 10^3/uL Nucleated RBCs Differential Comment Platelet Estimate (NORMAL) RBC Morph Micro Appear (NORMAL) Sodium (135-145) mmol/L Potassium (3.5-5.0) mmol/L Chloride (101-111) mmol/L Carbon Dioxide (21-32) mmol/L Anion Gap (6-13) BUN (6-20) mg/dL Creatinine (0.4-1.0) mg/dL Estimated GFR (MDRD) (>89) Glucose (70-100) mg/dL POC Whole Bld Glucose 298 H (70 - 100) mg/dL Glycated Hemoglobin (4.6-6.2) % Estim Average Glucose (70-100) Calcium (8.5-10.3) mg/dL Troponin I < 0.04 (<0.49) ng/mL B-Natriuretic Peptide (5-100) pg/mL TSH (0.34-5.60) uIU/mL Assessment/Plan - Problem List (1) COPD with acute exacerbation Impression: (1) Acute respiratory failure with hypoxia clinically, pt had significantly improved, no SOB, no cough, no fever. Stable SO2 at 93% on 2L O2. pt did not take O2 in home. Pt was admitted last night, will continue the regime today Pt did not have 30 unit lantus last night, had 45 unit Lantus at morning. Pt also had Solu-medrol. The glucose runs high today. order 5 unit Tid plus high degree slide scale with night and morning Lantus, will close monitor and adjust as needed Conclusion/Plan: Patient presents to the emergency department in respiratory distress with an O2 saturation of 64% on room air. Patient's O2 sats did improve with oxygen and breathing treatments. The patient also took a dose of Lasix prior to coming to the emergency department. The patient however continued to remain hypoxic and O2 saturations dropped once again when she ambulated to go to the bathroom. Cause of acute respiratory failure appears to be multifactorial secondary to COPD exacerbation as patient did have wheezing on examination and improved with nebulizer treatments. Patient also appears to have acute exacerbation of her chronic diastolic heart failure likely secondary to accelerated hypertension. Patient's chest x-ray and EKG were negative. Plan: Supplemental oxygen Treatment of COPD with duo nebs [id number] and when necessary, steroids and antibiotics Treatment of accelerated hypertension with addition of IV Lasix and continuation of home meds. Treatment of pulmonary edema with IV Lasix (2) COPD with acute exacerbation Conclusion/Plan: The patient was recently diagnosed with COPD on pulmonary function tests done as an outpatient. Patient however was not placed on any inhalers, nebulizers or long-acting medications. The patient does have a history of smoking but quit many years ago. Patient presented with acute respiratory failure with hypoxemia. She had wheezing and respiratory distress on presentation. She improved with nebulizer treatments in the emergency department and steroids. Plan: DuoNeb around the clock x24 hours and as needed IV Solu-Medrol 3 times a day Azithromycin Supplemental oxygen Patient will likely need rescue inhalers and a long-acting beta agonist and inhaled corticosteroid at discharge. (3) Acute exacerbation of CHF (congestive heart failure) Conclusion/Plan: The patient has a history of congestive heart failure. Looking at her previous echo it appears that she has grade 2 diastolic dysfunction with a preserved ejection fraction. Patient has had a recent workup with a nuclear stress test that was negative for any significant stenosis. The patient presented with acute respiratory failure secondary to hypoxemia, she was in respiratory distress on presentation with decelerate hypertension and found to have some mild vascular congestion her chest x-ray as well as crackles on her examination. Patient likely went into diastolic heart failure secondary to accelerated hypertension Patient had stopped taking Lasix about one week ago this may of contributed to her hypertension and failure. The patient did take Lasix prior to coming to the emergency department. Plan: Give patient IV Lasix 80 mg daily Monitor I/O Supplemental oxygen Blood pressure control Qualifiers: Congestive heart failure type: diastolic Qualified Code(s): I50.33 - Acute on chronic diastolic (congestive) heart failure (4) Accelerated hypertension Conclusion/Plan: The patient presented to the emergency department in respiratory distress with hypoxia. The patient's blood pressure at home was 213/96 and on presentation to the emergency department continued to be very elevated. The patient's accelerated hypertension likely contributed to her respiratory failure as it resulted in pulmonary edema due to her diastolic heart failure. This was likely secondary to patient having stopped Lasix for the last week which may have caused her blood pressure to become elevated. Plan: Start patient on IV Lasix Continue home medications Monitor patient's blood pressure and titrate medications as needed. Patient will likely need to restart her Lasix at home (5) Diabetes Conclusion/Plan: patient has insulin-dependent diabetes She is on Lantus twice a day at home we will continue her Lantus while she is hospitalized Patient will be placed on sliding scale insulin and have her blood sugars monitored a.c. at bedtime We will check hemoglobin A1c while she is hospitalized. Qualifiers: Diabetes mellitus type: type 2 (6) Hypothyroidism Conclusion/Plan: Patient has history of hypothyroidism and is on Synthroid at home. We will continue the patient's home dose of Synthroid, we will check a TSH. (7) Anxiety Conclusion/Plan: Patient feels anxious about being in hospitals. She uses lorazepam at home. She asks that we make sure we give it to her at night. She is also on Lexapro which helps with her depression and anxiety. We will continue both medications well the patient is hospitalized and placed her on lorazepam as needed for anxiety. (8) Prophylactic use of low molecular weight heparin for venous thromboembolism Conclusion/Plan: Placed on Lovenox while hospitalized
[2017-05-22 17:14] LABS: POTASSIUM 4.3 mmol/L (3.5-5.0)
[2017-05-22] MEDS: INSULIN GLARGINE 300 UNIT/3 ML PEN SUBQ SCH (21:21)
[2017-05-22] MEDS: AZITHROMYCIN 250 MG TABLET PO SCH (21:25)
[2017-05-23 05:41] LABS: BASOPHILS % (AUTO) 0.2 %; HCT - HEMATOCRIT 41.8 % (37.0-47.0); HGB - HEMOGLOBIN 13.4 g/dL (12.0-16.0); LYMPHOCYTES % (AUTO) 2.8 %; MEAN CORPUSCULAR HEMOGLOBIN 30.8 pg (27.0-31.0); MEAN CORPUSCULAR HGB CONC 32.2 g/dL (32.0-36.0); MEAN CORPUSCULAR VOLUME 95.6 fL (81.0-99.0); MEAN PLATELET VOLUME 8.2 fL (7.9-10.8); MONOCYTES % (AUTO) 1.5 %; NEUTROPHILS % (AUTO) 95.5 %; RED BLOOD COUNT 4.37 10^6/uL (4.20-5.40); RED CELL DISTRIBUTION WIDTH 14.6 % (12.0-15.0); UNCORRECTED WHITE BLOOD COUNT 24.8 x10^3/uL; WHITE BLOOD COUNT 24.8 x10^3/uL (4.8-10.8)
[2017-05-23 05:48] LABS: CALCIUM 9.2 mg/dL (8.5-10.3); CREATININE 1.4 mg/dL (0.4-1.0); POTASSIUM 5.1 mmol/L (3.5-5.0)
[2017-05-23 06:05] LABS: BAND NEUTROPHILS % (MANUAL) 12 %; LYMPHOCYTES % (MANUAL) 4 %; NEUTROPHILS % (MANUAL) 83 %; NP AUTO DIFFERENTIAL? YES; NP MAN DIFFERENTIAL? NO; PLATELET ESTIMATE, MANUAL NORMAL (130-450,000) (NORMAL); TOTAL CELLS COUNTED 100
[2017-05-23] MEDS: methylPREDNISolone SUCCINATE 40 MG/ML VIAL IVP SCH ×2 (06:12→08:15)
[2017-05-23] MEDS: INSULIN GLARGINE 300 UNIT/3 ML PEN SUBQ SCH (06:13)
[2017-05-23] MEDS: SODIUM CHLORIDE FLUSH 0.9% 10 ML SYRINGE IVP SCH ×3 (06:13→21:04)
[2017-05-23] MEDS: LEVOTHYROXINE 125 MCG TABLET PO SCH (06:13)
[2017-05-23] MEDS: PANTOPRAZOLE 40 MG TABLET PO SCH (06:14)
[2017-05-23] MEDS: BENZOCAINE/MENTHOL LOZENGE MM PRN ×2 (06:15→13:29)
[2017-05-23] MEDS: IPRATROPIUM/ALBUTEROL 3 ML NEB INH PRN ×2 (07:30→11:10)
[2017-05-23] MEDS: LORazepam 0.5 MG TABLET PO SCH (08:14)
[2017-05-23] MEDS: SENNA 8.6 MG TABLET PO SCH (08:14)
[2017-05-23] MEDS: ENOXAPARIN 40 MG/0.4 ML SYRINGE SUBQ SCH (08:15)
[2017-05-23] MEDS: POLYETHYLENE GLYCOL 3350 17 GM PACKET PO SCH (08:15)
[2017-05-23] MEDS: ATENOLOL 25 MG TABLET PO SCH ×2 (08:16→21:02)
[2017-05-23] MEDS: ESCITALOPRAM 10 MG TABLET PO SCH (08:16)
[2017-05-23] MEDS: ATORVASTATIN 40 MG TABLET PO SCH (08:16)
[2017-05-23] MEDS: LOSARTAN 50 MG TABLET PO SCH (08:17)
[2017-05-23] MEDS: DOCUSATE SODIUM 250 MG CAPSULE PO SCH (08:17)
[2017-05-23] MEDS: cloNIDine 0.1 MG TABLET PO SCH (08:18)
[2017-05-23] MEDS: INSULIN ASPART 300 UNIT/3 ML PEN SUBQ SCH ×7 (08:23→21:05)
[2017-05-23] MEDS: POTASSIUM CHLORIDE 10 MEQ CAPSULE PO SCH (08:31)
[2017-05-23] MEDS ORDERED: INSULIN ASPART 300 UNIT/3 ML PEN SUBQ ONE (08:44)
[2017-05-23] MEDS ORDERED: METHYLPREDNISOLONE SUCCINATE IV SCH (09:00)
[2017-05-23] MEDS ORDERED: AZITHROMYCIN 250 MG TABLET PO SCH (09:00)
[2017-05-23] MEDS ORDERED: cefTRIAXone 1 GM VIAL IVP SCH (09:00)
[2017-05-23] MEDS ORDERED: cefTRIAXone 1 GM in SODIUM CHLORIDE 0.9% MINIBAG 100 ML IV SCH (09:00)
[2017-05-23] MEDS ORDERED: SODIUM CHLORIDE 0.9% IV SCH (09:00)
[2017-05-23] MEDS ORDERED: AZITHROMYCIN INJ 500 MG in SODIUM CHLORIDE 0.9% 250 ML IV SCH (10:00)
--- NOTE | 2017-05-23 12:36 | PROVIDER PROGRESS NOTE ---
Subjective - Prog Note Date Prog Note Date: 05/23/17 Prog Note Time: 12:34 - Subjective Pt reports feeling: Improved Subjective: pt report she feel better, no complaints. No fever, chill, night sweating. Objective - Vital Signs/Intake & Output Vital Signs: Vital Signs x48h Temp Pulse Pulse Resp BP Pulse Ox 05/23/17 11:11 66 20 05/23/17 08:03 36.8 C 60 18 151/78 H 94 05/23/17 07:30 61 18 05/23/17 05:51 36.8 C 75 18 157/79 H 98 Intake & Output: Intake & Output 05/20/17 05/21/17 05/22/17 05/23/17 23:59 23:59 23:59 23:59 Intake Total 1852 856 Balance 1852 856 - Objective General Appearance: positive: No acute distress, Alert. negative: Mild distress , Moderate distress, Severe distress, Anxious, Lethargic, Other Eyes Bilateral: positive: Normal inspection, PERRL. negative: EOMI, No lid inflammation, Conjunctivae nml, No scleral icterus, Other ENT: positive: ENT inspection nml, Pharynx nml, No signs of dehydration. negative: Purulent nasal drainage, Pharyngeal erythema, Oral lesions, Dry mucous membranes, Other Neck: positive: Nml inspection, Trachea midline. negative: Thyroid nml, No JVD , Thyromegaly, Lymphadenopathy (R), Lymphadenopathy (L), Stiff neck, Kernig's sign, Brudzinski's sign, Carotid bruit, Swelling/bruising, Tracheal deviation, Other Respiratory: positive: Chest non-tender, No respiratory distress, Breath sounds nml. negative: Wheezes, Rales, Rhonchi, Other Cardiovascular: positive: Regular rate & rhythm, No murmur, No gallop. negative : Irregularly irregular, Extrasystoles, Tachycardia, Bradycardia, PMI displaced laterally, JVD present, Systolic murmur, Diastolic murmur, Gallop/S3, Gallop/S4 , Friction rub, Decreased pulse(s), Crepitus, Other Peripheral Pulses: 2+ Radial (R), 2+ Radial (L), 2+ Dorsalis pedis (R), 2+ Dorsalis pedis (L) Abdomen: positive: Non-tender, Nml bowel sounds. negative: No organomegaly, No distention, Tenderness, Guarding, Rebound, Hepatomegaly, Splenomegaly, Mass, Abnml bowel sounds, Bruit, Other Back: positive: Nml inspection. negative: CVA tenderness (R), CVA tenderness (L ), Other Skin: positive: Color nml, Warm. negative: No rash, Dry, Cyanosis, Diaphoresis , Pallor, Skin rash, Decubitus, Laceration (cm), Puncture wound, Embolic lesions , Other Extremities: positive: Non-tender, Full ROM, Nml appearance. negative: No pedal edema, Pedal edema, Calf tenderness, Joint swelling, Edda's sign/cords, Other Neurologic/Psychiatric: positive: Oriented x3, CN's nml (2-12), Motor nml, Sensation nml, Mood/affect nml. negative: Disoriented to person, Disoriented to place, Disoriented to time, Weakness, Sensory loss, Facial droop, Slurred/ abnml speech, Depressed mood/affect, Other - Lab Results Fish Bones: 05/23/17 05:20 05/23/17 05:20 Other Labs: Lab Results x24hrs 05/23/17 05/23/17 05/23/17 Range/Units 11:00 07:31 05:20 WBC (4.8-10.8) x10^3/uL RBC (4.20-5.40) 10^6/uL Hgb (12.0-16.0) g/dL Hct (37.0-47.0) % MCV (81.0-99.0) fL MCH (27.0-31.0) pg MCHC (32.0-36.0) g/dL RDW (12.0-15.0) % Plt Count (130-450) 10^3/uL MPV (7.9-10.8) fL Neut # Lymph # [place] # Eos # Baso # Absolute Nucleated RBC Total Counted Band Neuts % (Manual) (0 - 10) % Neutrophils # (Manual) (1.5-6.6) 10^3/uL Lymphocytes # (Manual) (1.5-3.5) 10^3/uL Monocytes # (Manual) (0.0-1.0) 10^3/uL Nucleated RBCs Differential Comment Platelet Estimate (NORMAL) RBC Morph Micro Appear (NORMAL) Sodium (135-145) mmol/L Potassium (3.5-5.0) mmol/L Chloride (101-111) mmol/L Carbon Dioxide (21-32) mmol/L Anion Gap (6-13) BUN (6-20) mg/dL Creatinine (0.4-1.0) mg/dL Estimated GFR (MDRD) (>89) Glucose (70-100) mg/dL POC Whole Bld Glucose 330 H 384 H (70 - 100) mg/dL Lactic Acid 2.1 (0.5-2.2) mmol/L Calcium (8.5-10.3) mg/dL B-Natriuretic Peptide (5-100) pg/mL Serum Ketones (NEGATIVE) 05/23/17 05/23/17 05/23/17 Range/Units 05:20 05:20 05:20 WBC 24.8 H (4.8-10.8) x10^3/uL RBC 4.37 (4.20-5.40) 10^6/uL Hgb 13.4 (12.0-16.0) g/dL Hct 41.8 (37.0-47.0) % MCV 95.6 (81.0-99.0) fL MCH 30.8 (27.0-31.0) pg MCHC 32.2 (32.0-36.0) g/dL RDW 14.6 (12.0-15.0) % Plt Count 298 (130-450) 10^3/uL MPV 8.2 (7.9-10.8) fL Neut # Not Reportable Lymph # Not Reportable [place] # Not Reportable Eos # Not Reportable Baso # Not Reportable Absolute Nucleated RBC Not Reportable Total Counted 100 Band Neuts % (Manual) 12 H (0 - 10) % Neutrophils # (Manual) 23.6 H (1.5-6.6) 10^3/uL Lymphocytes # (Manual) 1.0 L (1.5-3.5) 10^3/uL Monocytes # (Manual) 0.2 (0.0-1.0) 10^3/uL Nucleated RBCs Not Reportable Differential Comment MANUAL DIFFERENTIAL Platelet Estimate NORMAL (130-450,000) (NORMAL) RBC Morph Micro Appear NORMAL APPEARANCE (NORMAL) Sodium 135 (135-145) mmol/L Potassium 5.1 H (3.5-5.0) mmol/L Chloride 95 L (101-111) mmol/L Carbon Dioxide 30 (21-32) mmol/L Anion Gap 10.0 (6-13) BUN 33 H (6-20) mg/dL Creatinine 1.4 H (0.4-1.0) mg/dL Estimated GFR (MDRD) 37 L (>89) Glucose 335 H (70-100) mg/dL POC Whole Bld Glucose (70 - 100) mg/dL Lactic Acid (0.5-2.2) mmol/L Calcium 9.2 (8.5-10.3) mg/dL B-Natriuretic Peptide 284 H (5-100) pg/mL Serum Ketones (NEGATIVE) 05/22/17 05/22/17 Range/Units 17:03 13:44 WBC (4.8-10.8) x10^3/uL RBC (4.20-5.40) 10^6/uL Hgb (12.0-16.0) g/dL Hct (37.0-47.0) % MCV (81.0-99.0) fL MCH (27.0-31.0) pg MCHC (32.0-36.0) g/dL RDW (12.0-15.0) % Plt Count (130-450) 10^3/uL MPV (7.9-10.8) fL Neut # Lymph # [place] # Eos # Baso # Absolute Nucleated RBC Total Counted Band Neuts % (Manual) (0 - 10) % Neutrophils # (Manual) (1.5-6.6) 10^3/uL Lymphocytes # (Manual) (1.5-3.5) 10^3/uL Monocytes # (Manual) (0.0-1.0) 10^3/uL Nucleated RBCs Differential Comment Platelet Estimate (NORMAL) RBC Morph Micro Appear (NORMAL) Sodium (135-145) mmol/L Potassium 4.3 (3.5-5.0) mmol/L Chloride (101-111) mmol/L Carbon Dioxide (21-32) mmol/L Anion Gap (6-13) BUN (6-20) mg/dL Creatinine (0.4-1.0) mg/dL Estimated GFR (MDRD) (>89) Glucose (70-100) mg/dL POC Whole Bld Glucose 476 H (70 - 100) mg/dL Lactic Acid (0.5-2.2) mmol/L Calcium (8.5-10.3) mg/dL B-Natriuretic Peptide (5-100) pg/mL Serum Ketones NEGATIVE (NEGATIVE) Assessment/Plan - Problem List (1) COPD with acute exacerbation Impression: (1) Acute respiratory failure with hypoxia pt now SO2 94% with one liter O2 NC. Pt did not have reparatory distressing, the goal is wane of O2, room air as home, above 90% SO2 Pt has significantly elevated WBC, appeals associated with use fo Solu-medrol. Solu-medrol is reduced to 40 mg IV daily from previous 40 mg Tid, since pt is improved from COPD exacerbation. Pt has elevated creatinine to 1.4 and BUN 33, Pt may dehydrate, appear associate with IV Lasix. Change IV lasix to po dosage as pt took at home. planning is D/C pt on tomorrow if she continue improving. clinically, pt had significantly improved, no SOB, no cough, no fever. Stable SO2 at 93% on 2L O2. pt did not take O2 in home. Pt was admitted last night, will continue the regime today Pt did not have 30 unit lantus last night, had 45 unit Lantus at morning. Pt also had Solu-medrol. The glucose runs high today. order 5 unit Tid plus high degree slide scale with night and morning Lantus, will close monitor and adjust as needed Conclusion/Plan: Patient presents to the emergency department in respiratory distress with an O2 saturation of 64% on room air. Patient's O2 sats did improve with oxygen and breathing treatments. The patient also took a dose of Lasix prior to coming to the emergency department. The patient however continued to remain hypoxic and O2 saturations dropped once again when she ambulated to go to the bathroom. Cause of acute respiratory failure appears to be multifactorial secondary to COPD exacerbation as patient did have wheezing on examination and improved with nebulizer treatments. Patient also appears to have acute exacerbation of her chronic diastolic heart failure likely secondary to accelerated hypertension. Patient's chest x-ray and EKG were negative. Plan: Supplemental oxygen Treatment of COPD with duo nebs [id number] and when necessary, steroids and antibiotics Treatment of accelerated hypertension with addition of IV Lasix and continuation of home meds. Treatment of pulmonary edema with IV Lasix (2) COPD with acute exacerbation Conclusion/Plan: The patient was recently diagnosed with COPD on pulmonary function tests done as an outpatient. Patient however was not placed on any inhalers, nebulizers or long-acting medications. The patient does have a history of smoking but quit many years ago. Patient presented with acute respiratory failure with hypoxemia. She had wheezing and respiratory distress on presentation. She improved with nebulizer treatments in the emergency department and steroids. Plan: DuoNeb around the clock x24 hours and as needed IV Solu-Medrol 3 times a day Azithromycin Supplemental oxygen Patient will likely need rescue inhalers and a long-acting beta agonist and inhaled corticosteroid at discharge. (3) Acute exacerbation of CHF (congestive heart failure) Conclusion/Plan: The patient has a history of congestive heart failure. Looking at her previous echo it appears that she has grade 2 diastolic dysfunction with a preserved ejection fraction. Patient has had a recent workup with a nuclear stress test that was negative for any significant stenosis. The patient presented with acute respiratory failure secondary to hypoxemia, she was in respiratory distress on presentation with decelerate hypertension and found to have some mild vascular congestion her chest x-ray as well as crackles on her examination. Patient likely went into diastolic heart failure secondary to accelerated hypertension Patient had stopped taking Lasix about one week ago this may of contributed to her hypertension and failure. The patient did take Lasix prior to coming to the emergency department. Plan: Give patient IV Lasix 80 mg daily Monitor I/O Supplemental oxygen Blood pressure control Qualifiers: Congestive heart failure type: diastolic Qualified Code(s): I50.33 - Acute on chronic diastolic (congestive) heart failure (4) Accelerated hypertension Conclusion/Plan: The patient presented to the emergency department in respiratory distress with hypoxia. The patient's blood pressure at home was 213/96 and on presentation to the emergency department continued to be very elevated. The patient's accelerated hypertension likely contributed to her respiratory failure as it resulted in pulmonary edema due to her diastolic heart failure. This was likely secondary to patient having stopped Lasix for the last week which may have caused her blood pressure to become elevated. Plan: Start patient on IV Lasix Continue home medications Monitor patient's blood pressure and titrate medications as needed. Patient will likely need to restart her Lasix at home (5) Diabetes Conclusion/Plan: patient has insulin-dependent diabetes She is on Lantus twice a day at home we will continue her Lantus while she is hospitalized Patient will be placed on sliding scale insulin and have her blood sugars monitored a.c. at bedtime We will check hemoglobin A1c while she is hospitalized. Qualifiers: Diabetes mellitus type: type 2 (6) Hypothyroidism Conclusion/Plan: Patient has history of hypothyroidism and is on Synthroid at home. We will continue the patient's home dose of Synthroid, we will check a TSH. (7) Anxiety Conclusion/Plan: Patient feels anxious about being in hospitals. She uses lorazepam at home. She asks that we make sure we give it to her at night. She is also on Lexapro which helps with her depression and anxiety. We will continue both medications well the patient is hospitalized and placed her on lorazepam as needed for anxiety. (8) Prophylactic use of low molecular weight heparin for venous thromboembolism Conclusion/Plan: Placed on Lovenox while hospitalized
[2017-05-23] MEDS: FUROSEMIDE 40 MG TABLET PO SCH (13:28)
[2017-05-23] MEDS: IPRATROPIUM/ALBUTEROL 3 ML NEB INH SCH ×2 (15:32→19:14)
[2017-05-23] MEDS ORDERED: INSULIN GLARGINE 300 UNIT/3 ML PEN SUBQ SCH (21:00)
[2017-05-23] MEDS: ASPIRIN CHEW 81 MG TABLET PO SCH (21:03)
[2017-05-24 06:09] LABS: BASOPHILS % (AUTO) 0.2 %; EOSINOPHILS % (AUTO) 0.2 %; HCT - HEMATOCRIT 41.3 % (37.0-47.0); HGB - HEMOGLOBIN 13.4 g/dL (12.0-16.0); LYMPHOCYTES # (AUTO) 2.7 10^3/uL (1.5-3.5); LYMPHOCYTES % (AUTO) 13.5 %; MEAN CORPUSCULAR HEMOGLOBIN 31.1 pg (27.0-31.0); MEAN CORPUSCULAR HGB CONC 32.4 g/dL (32.0-36.0); MEAN CORPUSCULAR VOLUME 95.9 fL (81.0-99.0); MEAN PLATELET VOLUME 8.2 fL (7.9-10.8); MONOCYTES # (AUTO) 1.2 10^3/uL (0.0-1.0); NEUTROPHILS # (AUTO) 15.9 10^3/uL (1.5-6.6); NEUTROPHILS % (AUTO) 80.1 %; RED BLOOD COUNT 4.31 10^6/uL (4.20-5.40); RED CELL DISTRIBUTION WIDTH 14.5 % (12.0-15.0); UNCORRECTED WHITE BLOOD COUNT 19.9 x10^3/uL; WHITE BLOOD COUNT 19.9 x10^3/uL (4.8-10.8)
[2017-05-24 06:12] LABS: CALCIUM 9.3 mg/dL (8.5-10.3); CREATININE 1.3 mg/dL (0.4-1.0); POTASSIUM 4.2 mmol/L (3.5-5.0)
[2017-05-24] MEDS: LEVOTHYROXINE 125 MCG TABLET PO SCH (06:15)
[2017-05-24] MEDS: FUROSEMIDE 40 MG TABLET PO SCH ×2 (06:15→14:15)
[2017-05-24] MEDS: PANTOPRAZOLE 40 MG TABLET PO SCH (06:15)
[2017-05-24] MEDS: INSULIN GLARGINE 300 UNIT/3 ML PEN SUBQ SCH (06:17)
[2017-05-24] MEDS: SODIUM CHLORIDE FLUSH 0.9% 10 ML SYRINGE IVP SCH ×3 (06:20→20:49)
[2017-05-24] MEDS: BENZOCAINE/MENTHOL LOZENGE MM PRN (06:24)
[2017-05-24] MEDS: LEVOTHYROXINE 100 MCG TABLET PO SCH (06:38)
[2017-05-24] MEDS: IPRATROPIUM/ALBUTEROL 3 ML NEB INH SCH ×4 (07:36→18:04)
[2017-05-24] MEDS: INSULIN ASPART 300 UNIT/3 ML PEN SUBQ SCH ×6 (08:54→20:48)
[2017-05-24] MEDS: ATORVASTATIN 40 MG TABLET PO SCH (08:57)
[2017-05-24] MEDS: AZITHROMYCIN 250 MG TABLET PO SCH (08:57)
[2017-05-24] MEDS: ATENOLOL 25 MG TABLET PO SCH ×2 (08:57→20:47)
[2017-05-24] MEDS: ENOXAPARIN 40 MG/0.4 ML SYRINGE SUBQ SCH (08:58)
[2017-05-24] MEDS: ESCITALOPRAM 10 MG TABLET PO SCH (08:58)
[2017-05-24] MEDS: DOCUSATE SODIUM 250 MG CAPSULE PO SCH (08:58)
[2017-05-24] MEDS: cloNIDine 0.1 MG TABLET PO SCH (08:58)
[2017-05-24] MEDS: POLYETHYLENE GLYCOL 3350 17 GM PACKET PO SCH (08:59)
[2017-05-24] MEDS: LOSARTAN 50 MG TABLET PO SCH (08:59)
[2017-05-24] MEDS: LORazepam 0.5 MG TABLET PO SCH (08:59)
[2017-05-24] MEDS: methylPREDNISolone SUCCINATE 40 MG/ML VIAL IVP SCH (08:59)
[2017-05-24] MEDS: SENNA 8.6 MG TABLET PO SCH (09:00)
--- NOTE | 2017-05-24 14:53 | PROVIDER PROGRESS NOTE ---
Subjective - Prog Note Date Prog Note Date: 05/24/17 Prog Note Time: 14:52 - Subjective Pt reports feeling: Improved (pt state she feel better, no other complaints) Objective - Vital Signs/Intake & Output Vital Signs: Vital Signs x48h Temp Pulse Pulse Resp BP Pulse Ox 05/24/17 12:40 36.8 C 61 16 127/69 95 05/24/17 11:45 64 18 05/24/17 08:58 36.8 C 65 18 135/62 H 95 05/24/17 08:03 64 18 Intake & Output: Intake & Output 05/21/17 05/22/17 05/23/17 05/24/17 23:59 23:59 23:59 23:59 Intake Total 1851 2105 2099 Balance 1851 2105 2099 - Objective General Appearance: positive: No acute distress, Alert. negative: Mild distress , Moderate distress, Severe distress, Anxious, Lethargic, Other Eyes Bilateral: positive: Normal inspection, PERRL. negative: EOMI, No lid inflammation, Conjunctivae nml, No scleral icterus, Other ENT: positive: ENT inspection nml, No signs of dehydration. negative: Pharynx nml, Purulent nasal drainage, Pharyngeal erythema, Oral lesions, Dry mucous membranes, Other Neck: positive: Nml inspection, Trachea midline. negative: Thyroid nml, No JVD , Thyromegaly, Lymphadenopathy (R), Lymphadenopathy (L), Stiff neck, Kernig's sign, Brudzinski's sign, Carotid bruit, Swelling/bruising, Tracheal deviation, Other Respiratory: positive: Chest non-tender, No respiratory distress, Breath sounds nml. negative: Wheezes, Rales, Rhonchi, Other Cardiovascular: positive: Regular rate & rhythm, No murmur, No gallop. negative : Irregularly irregular, Extrasystoles, Tachycardia, Bradycardia, PMI displaced laterally, JVD present, Systolic murmur, Diastolic murmur, Gallop/S3, Gallop/S4 , Friction rub, Decreased pulse(s), Crepitus, Other Peripheral Pulses: 2+ Radial (R), 2+ Radial (L), 2+ Dorsalis pedis (R), 2+ Dorsalis pedis (L) Abdomen: positive: Non-tender, Nml bowel sounds, No distention. negative: No organomegaly, Tenderness, Guarding, Rebound, Hepatomegaly, Splenomegaly, Mass, Abnml bowel sounds, Bruit, Other Back: positive: Nml inspection. negative: CVA tenderness (R), CVA tenderness (L ), Other Skin: positive: Color nml, Warm. negative: No rash, Dry, Cyanosis, Diaphoresis , Pallor, Skin rash, Decubitus, Laceration (cm), Puncture wound, Embolic lesions , Other Extremities: positive: Non-tender, Full ROM, Nml appearance. negative: No pedal edema, Pedal edema, Calf tenderness, Joint swelling, Edda's sign/cords, Other Neurologic/Psychiatric: positive: Oriented x3, CN's nml (2-12), Motor nml, Sensation nml, Mood/affect nml. negative: Disoriented to person, Disoriented to place, Disoriented to time, Weakness, Sensory loss, Facial droop, Slurred/ abnml speech, Depressed mood/affect, Other - Lab Results Fish Bones: 05/24/17 05:18 05/24/17 05:18 Other Labs: Lab Results x24hrs 05/24/17 05/24/17 05/24/17 Range/Units 12:02 05:18 05:18 WBC (4.8-10.8) x10^3/uL RBC (4.20-5.40) 10^6/uL Hgb (12.0-16.0) g/dL Hct (37.0-47.0) % MCV (81.0-99.0) fL MCH (27.0-31.0) pg MCHC (32.0-36.0) g/dL RDW (12.0-15.0) % Plt Count (130-450) 10^3/uL MPV (7.9-10.8) fL Neut # (1.5-6.6) 10^3/uL Lymph # (1.5-3.5) 10^3/uL [place] # (0.0-1.0) 10^3/uL Eos # (0.0-0.7) 10^3/uL Baso # (0.0-0.1) 10^3/uL Absolute Nucleated RBC x10^3/uL Nucleated RBCs /100WBC Sodium 140 (135-145) mmol/L Potassium 4.2 (3.5-5.0) mmol/L Chloride 99 L (101-111) mmol/L Carbon Dioxide 34 H (21-32) mmol/L Anion Gap 7.0 (6-13) BUN 43 H (6-20) mg/dL Creatinine 1.3 H (0.4-1.0) mg/dL Estimated GFR (MDRD) 40 L (>89) Glucose 130 H (70-100) mg/dL POC Whole Bld Glucose 184 H (70 - 100) mg/dL Calcium 9.3 (8.5-10.3) mg/dL B-Natriuretic Peptide 219 H (5-100) pg/mL 05/24/17 05/23/17 05/23/17 Range/Units 05:18 20:58 16:49 WBC 19.9 H (4.8-10.8) x10^3/uL RBC 4.31 (4.20-5.40) 10^6/uL Hgb 13.4 (12.0-16.0) g/dL Hct 41.3 (37.0-47.0) % MCV 95.9 (81.0-99.0) fL MCH 31.1 H (27.0-31.0) pg MCHC 32.4 (32.0-36.0) g/dL RDW 14.5 (12.0-15.0) % Plt Count 290 (130-450) 10^3/uL MPV 8.2 (7.9-10.8) fL Neut # 15.9 H (1.5-6.6) 10^3/uL Lymph # 2.7 (1.5-3.5) 10^3/uL [place] # 1.2 H (0.0-1.0) 10^3/uL Eos # 0.0 (0.0-0.7) 10^3/uL Baso # 0.0 (0.0-0.1) 10^3/uL Absolute Nucleated RBC 0.00 x10^3/uL Nucleated RBCs 0.0 /100WBC Sodium (135-145) mmol/L Potassium (3.5-5.0) mmol/L Chloride (101-111) mmol/L Carbon Dioxide (21-32) mmol/L Anion Gap (6-13) BUN (6-20) mg/dL Creatinine (0.4-1.0) mg/dL Estimated GFR (MDRD) (>89) Glucose (70-100) mg/dL POC Whole Bld Glucose 304 H 336 H (70 - 100) mg/dL Calcium (8.5-10.3) mg/dL B-Natriuretic Peptide (5-100) pg/mL Assessment/Plan - Problem List (1) COPD with acute exacerbation Impression: vital stable, and lab reviewed. Pt's SO2 95% with room air. Creatinine decreased , BUN elevated, but not in the baseline. WBC decreased. Switch IV solu-medrol to PO prednisone. Lasix from PO 80 to 40 mg. Plan D/C tomorrow.
[2017-05-24] MEDS: ASPIRIN CHEW 81 MG TABLET PO SCH (20:47)
[2017-05-24] MEDS ORDERED: INSULIN GLARGINE 300 UNIT/3 ML PEN SUBQ SCH (21:00)
[2017-05-25 05:21] LABS: BASOPHILS # (AUTO) 0.1 10^3/uL (0.0-0.1); BASOPHILS % (AUTO) 0.3 %; EOSINOPHILS # (AUTO) 0.1 10^3/uL (0.0-0.7); EOSINOPHILS % (AUTO) 0.5 %; HCT - HEMATOCRIT 41.8 % (37.0-47.0); HGB - HEMOGLOBIN 13.7 g/dL (12.0-16.0); LYMPHOCYTES # (AUTO) 2.1 10^3/uL (1.5-3.5); LYMPHOCYTES % (AUTO) 13.8 %; MEAN CORPUSCULAR HEMOGLOBIN 31.2 pg (27.0-31.0); MEAN CORPUSCULAR HGB CONC 32.7 g/dL (32.0-36.0); MEAN CORPUSCULAR VOLUME 95.2 fL (81.0-99.0); MEAN PLATELET VOLUME 8.1 fL (7.9-10.8); MONOCYTES # (AUTO) 1.4 10^3/uL (0.0-1.0); MONOCYTES % (AUTO) 9.1 %; NEUTROPHILS # (AUTO) 11.5 10^3/uL (1.5-6.6); NEUTROPHILS % (AUTO) 76.3 %; NUCLEATED RED BLOOD CELLS AUTO 0.1 /100WBC; RED BLOOD COUNT 4.39 10^6/uL (4.20-5.40); RED CELL DISTRIBUTION WIDTH 14.4 % (12.0-15.0)
[2017-05-25 05:29] LABS: CALCIUM 9.2 mg/dL (8.5-10.3); CREATININE 1.1 mg/dL (0.4-1.0); POTASSIUM 3.9 mmol/L (3.5-5.0)
[2017-05-25] MEDS: INSULIN GLARGINE 300 UNIT/3 ML PEN SUBQ SCH (06:49)
[2017-05-25] MEDS: PANTOPRAZOLE 40 MG TABLET PO SCH (06:57)
[2017-05-25] MEDS: LEVOTHYROXINE 100 MCG TABLET PO SCH (06:57)
[2017-05-25] MEDS: SODIUM CHLORIDE FLUSH 0.9% 10 ML SYRINGE IVP SCH (07:02)
[2017-05-25] MEDS: IPRATROPIUM/ALBUTEROL 3 ML NEB INH SCH (07:20)
[2017-05-25] MEDS ORDERED: predniSONE 20 MG TABLET PO SCH (08:00)
[2017-05-25] MEDS: INSULIN ASPART 300 UNIT/3 ML PEN SUBQ SCH ×2 (08:07→12:51)
[2017-05-25] MEDS: ENOXAPARIN 40 MG/0.4 ML SYRINGE SUBQ SCH (09:00)
[2017-05-25] MEDS: POLYETHYLENE GLYCOL 3350 17 GM PACKET PO SCH (09:01)
[2017-05-25] MEDS: LOSARTAN 50 MG TABLET PO SCH (09:01)
[2017-05-25] MEDS: LORazepam 0.5 MG TABLET PO SCH (09:01)
[2017-05-25] MEDS: ESCITALOPRAM 10 MG TABLET PO SCH (09:02)
[2017-05-25] MEDS: DOCUSATE SODIUM 250 MG CAPSULE PO SCH (09:03)
[2017-05-25] MEDS: AZITHROMYCIN 250 MG TABLET PO SCH (09:03)
[2017-05-25] MEDS: cloNIDine 0.1 MG TABLET PO SCH (09:04)
[2017-05-25] MEDS: SENNA 8.6 MG TABLET PO SCH (09:04)
[2017-05-25] MEDS: ATENOLOL 25 MG TABLET PO SCH (09:05)
[2017-05-25] MEDS: ATORVASTATIN 40 MG TABLET PO SCH (09:05)
[2017-05-25] MEDS: FUROSEMIDE 40 MG TABLET PO SCH (09:06)
--- NOTE | 2017-05-25 11:05 | Discharge Plan ---
Discharge Plan Disposition: 01 Home, Self Care Condition: Stable Diet: Diabetic Activity Restrictions: Activity as Tolerated Shower Restrictions: No Driving Restrictions: No Weight Bearing: Full Weight Additional Instructions or Follow Up instructions: see PCP in one week If symptoms return or worsen, please call 911 or go to the nearest emergence room. Patient is welcomed by our service. Follow-Up Care: [facility] - Pulmonary No Smoking: If you smoke, Please STOP! Call for help. Follow-up with: Gilbert Werner MD [Primary Care Provider] -
[2017-05-25 11:09] VITALS: BP 127/90
--- NOTE | 2017-05-26 19:25 | DISCHARGE SUMMARY ---
DATE OF ADMISSION: 05/21/2017 DATE OF DISCHARGE: 05/25/2017 TIME: 11:30 a.m. The patient was admitted on 05/21/2017 and discharged 05/25/2017. PRIMARY CARE PROVIDER: Teddy Werner MD. CHIEF COMPLAINT: Short of air. DISCHARGE DIAGNOSES: 1. Chronic obstructive pulmonary disease exacerbation. 2. Congestive heart failure exacerbation. 3. Hypertension. 4. Diabetes. 5. Acute respiratory failure with hypoxia. 6. Anxiety. 7. Hypothyroidism. HOME MEDICATIONS: At time of discharge: 1. Ativan 1 mg p.o. q. p.m. 2. Docusate 250 mg b.i.d., as needed. 3. Dulcolax 10 mg p.o. daily as needed. 4. Atorvastatin 80 mg p.o. q. p.m. 5. Aspirin 81 mg p.o. daily. 6. Losartan 100 mg p.o. daily. 7. 20 mg. p.o. daily. 8. Levothyroxine 200 mcg q. every other day. 9. Atenolol 50 mg p.o. b.i.d. 10. Insulin, Lantus 30 units subcutaneous q. p.m. 11. Insulin, Lantus 45 units subcutaneous q. before meals. 12. Clonidine 0.1 mg p.o. q. p.m. 13. Lexapro 20 mg p.o. daily. 14. Tylenol 2 tablets p.o. q. 4 hours p.r.n. for pain. 15. Potassium 10 meq p.o. daily. 16. Lasix 80 mg p.o. daily p.r.n. HOSPITAL COURSE: For hospital course please refer to Dr. Nicholas Flaherty's 05/21/2017 History and Phys ical. The patient comes here with short of air and with room air O2 saturation only 63%. Also with bl ood pressure was 221/65. We treated the patient for chronic obstructive pulmonary disease exacerbatio n and congestive heart failure exacerbation. We used Duoneb, Solu-Medrol, then we changed to predniso ne, still used Duoneb treated for chronic obstructive pulmonary disease exacerbation. When patient was discharged his O2 saturation was 93% on room air. Respiratory therapy evaluated joey ent before patient was discharged. Please refer to respiratory therapy revaluation results. Congestive heart failure exacerbation, we used IV Lasix. After treated the patient feels much better, and vital signs are stable. LABORATORY TESTS: Unremarkable and a return of patient to baseline. IMAGING STUDIES: The patient in a 05/21/2017 had chest x-ray. Chest x-ray shows her to have mild vasc ular congestion. Also have change with bilaterally consolidation or atelectasis. We also treated patient with azithromycin. Since the patient has no fever, no chills, some mild cough , and clinically indicated patient has no pneumonia, but possible bronchitis, so we treated with azit hromycin by mouth p.o. INTERVENTION: We used Duoneb and Solu Medrol, then we changed for prednisone to treat chronic obstruc tive pulmonary disease exacerbation. We treated with Lasix for congestive heart failure exacerbation. PHYSICAL EXAMINATION: GENERAL APPEARANCE: The patient is alert, no distress. HEENT: Eyes bilaterally PERRL, EOMI, normal inspection. ENT normal inspection. No sign of dehydration . NECK: No , no JVD. Trachea is midline. RESPIRATORY: On discharge no wheezing, no tenderness, normal lung sounds, no accessory muscle movemen t. CHIEF COMPLAINT: Regular rate and rhythm, no murmur, no gallop. Peripheral pulses +2. ABDOMEN: No tenderness, normal bowel sounds, no distention. BACK: Normal inspection. SKIN: Color is normal, no rash, warm. EXTREMITIES: No tenderness, full range of motion, normal appearance. FOLLOWUP: Patient is advised to followup with primary care provider in 1 week. The patient advised to use a cardiac diet or diabetic diet. Activity as tolerated. TIME SPENT ON DISCHARGE: 50 minutes. JOB #: [id number] EXT JOB #:[id number]
== END 2017-05-25 12:45 | disposition home or self-care (01) | DRG 291 ==
LOC: ED 18:20 → MS 20:34
PROVIDERS: ADMIT Internal Medicine; ATTEND Nurse Practitioner Gerontology
DX: I11.0 Hypertensive heart disease with heart failure (principal); R09.02 Hypoxemia; J96.01 Acute respiratory failure with hypoxia; I50.9 Heart failure, unspecified; E78.00 Pure hypercholesterolemia, unspecified; I73.9 Peripheral vascular disease, unspecified; J44.1 Chronic obstructive pulmonary disease with (acute) exacerbation; I50.33 Acute on chronic diastolic (congestive) heart failure; F41.0 Panic disorder [episodic paroxysmal anxiety]; E11.42 Type 2 diabetes mellitus with diabetic polyneuropathy; Z79.4 Long term (current) use of insulin; Z79.82 Long term (current) use of aspirin; E03.9 Hypothyroidism, unspecified; Z79.899 Other long term (current) drug therapy; F41.9 Anxiety disorder, unspecified; E78.5 Hyperlipidemia, unspecified; E66.01 Morbid (severe) obesity due to excess calories; Z68.37 Body mass index [BMI] 37.0-37.9, adult; F32.9 Major depressive disorder, single episode, unspecified; K59.00 Constipation, unspecified; H54.7 Unspecified visual loss; J32.8 Other chronic sinusitis; I25.10 Atherosclerotic heart disease of native coronary artery without angina pectoris; L30.9 Dermatitis, unspecified; Z87.01 Personal history of pneumonia (recurrent); Z87.891 Personal history of nicotine dependence
CPT/HCPCS: 36415; 71010; 80048; 80053; 82009; 83036; 83605; 83690; 83880; 84132; 84443; 84484; 85025; 93005; 94640; 94761; 96374; 99284; 99285

== ENCOUNTER 2017-08-26 08:00 | Outpatient (CLI) | payer MEDICARE ==
[2017-08-26 19:11] LABS: CALCIUM 9.1 mg/dL (8.5-10.3); CREATININE 1.1 mg/dL (0.4-1.0); POTASSIUM 4.6 mmol/L (3.5-5.0)
[2017-08-26 19:49] LABS: HEMOGLOBIN A1C 1.4 g/dL
== END 2017-08-26 08:01 | disposition home or self-care (01) ==
LOC: LAB.WCP 08:00
PROVIDERS: ATTEND Family Medicine
DX: J44.9 Chronic obstructive pulmonary disease, unspecified (principal); I50.9 Heart failure, unspecified; I10 Essential (primary) hypertension; E11.8 Type 2 diabetes mellitus with unspecified complications
CPT/HCPCS: 36415; 80048; 82043; 83036

== ENCOUNTER 2017-10-25 11:54 | Emergency (ER) | payer MEDICARE ==
[2017-10-25 12:18] VITALS: BP 144/60
--- NOTE | 2017-10-25 12:50 | ED Physician Documentation ---
PD HPI LOWER EXT INJURY - Stated complaint Stated Complaint: R CLEMONS WOUND CHECK - Chief complaint Chief Complaint: Ext Problem - History obtained from History obtained from: Patient - History of Present Illness PD HPI LOW EXT INJURY LOCATION: Other (72-year-old woman with long-standing diabetes and peripheral vascular disease with stents in both legs presents with a nonhealing wound to the right clemons after hitting it on something about 6 months ago. She was referred here from physical therapy. She does not have claudication. She has no pain in her leg. No fevers or chills.) Review of Systems Constitutional: denies: Fever, Chills Respiratory: reports: Reviewed and negative GI: reports: Reviewed and negative PD PAST MEDICAL HISTORY - Past Medical History Past Medical History: Yes Cardiovascular: Congestive heart failure, Hypertension, High cholesterol, Peripheral Vascular Disease Respiratory: COPD, Pneumonia Neuro: Peripheral neuropathy, Tremors Endocrine/Autoimmune: Type 2 diabetes GI: Chronic constipation : None HEENT: Chronic vision loss, Chronic sinusitis, Other Psych: Depression, Anxiety, Panic attacks Musculoskeletal: None Derm: Eczema - Past Surgical History Past Surgical History: Yes General: Appendectomy, Bowel surgery, Other Ortho: Arthroscopic surgery, Carpal Tunnel surgery /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 HELPER: Dilation and currettage Cardiovascular: Cardiac catheterization, Other HEENT: Tonsil/Adenoidectomy - Present Medications Home Medications: Ambulatory Orders Medication Instructions Recorded Confirmed Furosemide [Lasix] 80 mg PO DAILY PRN 10/12/13 05/21/17 cloNIDine HCl [Clonidine HCl] 0.1 mg PO QPM 10/12/13 05/22/17 Aspirin Chewable [St Sami 81 mg PO DAILY 03/30/14 05/22/17 Aspirin] Bisacodyl [Dulcolax] 10 mg PO DAILY PRN 03/30/14 05/22/17 Insulin Glargine,Hum.rec.anlog 30 units SUBQ QPM 03/30/14 05/22/17 [Lantus] Insulin Glargine,Hum.rec.anlog 45 units SUBQ QDAC 03/30/14 05/22/17 [Lantus] Loratadine [Claritin] 10 mg PO DAILY 03/30/14 05/22/17 Potassium Chloride [Micro-K] 10 meq PO DAILY 03/30/14 05/21/17 Triamcinolone Acetonide 0.1 - 0.5 mg TOP DAILY PRN 03/30/14 05/22/17 Acetaminophen [Tylenol Extra 2 tab PO Q4HR 07/17/14 05/21/17 Strength] Atenolol [Tenormin] 50 mg PO BID 05/22/17 05/22/17 Atorvastatin Calcium 80 mg PO QPM 05/22/17 05/22/17 Docusate Sodium 250Mg Capsule 250 mg PO BID PRN 05/22/17 05/22/17 [Colace 250Mg Capsule] Escitalopram Oxalate [Lexapro] 20 mg PO DAILY 05/22/17 05/22/17 Levothyroxine Sodium [Unithroid] 200 mcg PO QDAC 05/22/17 05/22/17 Lorazepam [Ativan] 1 mg PO QPM 05/22/17 05/22/17 Losartan Potassium [Cozaar] 100 mg PO DAILY 05/22/17 05/22/17 Amox/Clav 875/125 [Augmentin] 1 each PO Q12H #20 tablet 10/25/17 - Allergies Allergies/Adverse Reactions: Allergies Allergy/AdvReac Type Severity Reaction Status Date / Time tree nut Allergy Anaphylaxis Verified 10/25/17 12:18 Sulfa (Sulfonamide AdvReac Intermediate Edema Verified 10/25/17 12:18 Antibiotics) lisinopril AdvReac Itching Verified 10/25/17 12:18 - Social History Does the pt smoke?: No Smoking Status: Never smoker Does the pt drink ETOH?: No Does the pt have substance abuse?: No - Immunizations Immunizations are current?: Yes - POLST Patient has POLST: Yes POLST Status: DNR PD ED PE NORMAL - Vitals Vital signs reviewed: Yes - General General: Alert and oriented X 3, No acute distress - Derm Derm: Normal color, Warm and dry - Extremities Extremities: Other (Excellent right pedal pulses, warm feet.) - Neuro Neuro: Alert and oriented X 3, Normal speech PD ED PE EXPANDED - Extremities AYSHA LE visual: 1 - abrasion (There is a slightly less than 1 cm around clean based ulcer that is shallow with just a few millimeter rim of surrounding cellulitis. No tenderness. There are some smaller wounds medial to this.) Results - Vitals Vitals: Vital Signs - 24 hr 10/25/17 12:13 Temperature 36 C L Heart Rate 57 L Respiratory 20 Rate Blood Pressure 144/60 H O2 Saturation 92 Oxygen O2 Source Room air PD MEDICAL DECISION MAKING - ED course ED course: She has a nonhealing wound to the right clemons, there is no evidence of active significant vascular compromise. She will be started on antibiotics and she is advised to follow-up with her physician for referral to wound care. 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 Follow-up with Dr. Werner and discuss potentially a referral to wound care. Your blood pressure was elevated today on check into the emergency department. This does not mean that you have hypertension, it is a common phenomenon to come to the emergency department and have elevated blood pressure. I recommend that you see your primary care physician within the week to have it rechecked when you are feeling better.
== END 2017-10-25 13:08 | disposition home or self-care (01) ==
LOC: ED 11:54
DX: T81.89XA Other complications of procedures, not elsewhere classified, initial encounter (principal); E11.51 Type 2 diabetes mellitus with diabetic peripheral angiopathy without gangrene; I11.0 Hypertensive heart disease with heart failure; I50.9 Heart failure, unspecified; Z79.82 Long term (current) use of aspirin; Z79.4 Long term (current) use of insulin
CPT/HCPCS: 99283

== ENCOUNTER 2017-10-29 08:00 | Outpatient (CLI) | payer MEDICARE | END 2017-10-29 08:01 | disposition home or self-care (01) | LOC: LAB.WCP 08:00 | PROVIDERS: ATTEND Family Medicine | DX: L97.818 Non-pressure chronic ulcer of other part of right lower leg with other specified severity (principal) | CPT/HCPCS: 87070; 87205 ==

== ENCOUNTER 2017-12-03 11:15 | Outpatient (CLI) | payer MEDICARE ==
[2017-12-03 11:46] LABS: BASOPHILS # (AUTO) 0.2 10^3/uL (0.0-0.1); BASOPHILS % (AUTO) 3.7 %; EOSINOPHILS # (AUTO) 0.3 10^3/uL (0.0-0.7); EOSINOPHILS % (AUTO) 3.9 %; LYMPHOCYTES # (AUTO) 1.1 10^3/uL (1.5-3.5); LYMPHOCYTES % (AUTO) 15.7 %; MEAN CORPUSCULAR HEMOGLOBIN 31.7 pg (27.0-31.0); MEAN CORPUSCULAR HGB CONC 32.2 g/dL (32.0-36.0); MEAN CORPUSCULAR VOLUME 98.3 fL (81.0-99.0); MEAN PLATELET VOLUME 8.7 fL (7.9-10.8); MONOCYTES # (AUTO) 0.4 10^3/uL (0.0-1.0); MONOCYTES % (AUTO) 6.6 %; NEUTROPHILS # (AUTO) 4.7 10^3/uL (1.5-6.6); NEUTROPHILS % (AUTO) 70.1 %; PLT - PLATELET COUNT 235 10^3/uL (130-450); RED BLOOD COUNT 4.74 10^6/uL (4.20-5.40); RED CELL DISTRIBUTION WIDTH 12.8 % (12.0-15.0); WHITE BLOOD COUNT 6.8 x10^3/uL (4.8-10.8)
[2017-12-03 11:57] LABS: CALCIUM 9.2 mg/dL (8.5-10.3); CREATININE 1.2 mg/dL (0.4-1.0)
[2017-12-03 12:09] LABS: HB2 TOTAL 16.8 g/dL; HEMOGLOBIN A1C 1.62 g/dL
== END 2017-12-03 11:16 | disposition home or self-care (01) ==
LOC: LAB 11:15
PROVIDERS: ATTEND Family Medicine
DX: E87.6 Hypokalemia (principal); E11.621 Type 2 diabetes mellitus with foot ulcer; I10 Essential (primary) hypertension
CPT/HCPCS: 36415; 80048; 83036; 85025

== ENCOUNTER 2018-03-06 11:32 | Outpatient (CLI) | payer MEDICARE ==
[2018-03-06 12:04] LABS: CALCIUM 9.2 mg/dL (8.5-10.3); CREATININE 1.4 mg/dL (0.4-1.0)
[2018-03-06 13:08] LABS: HB2 TOTAL 16.4 g/dL; HEMOGLOBIN A1C 1.36 g/dL; HEMOGLOBIN A1C % 9.7 % (4.6-6.2)
== END 2018-03-06 11:33 | disposition home or self-care (01) ==
LOC: LAB 11:32
PROVIDERS: ATTEND Family Medicine
DX: E10.9 Type 1 diabetes mellitus without complications (principal); I11.0 Hypertensive heart disease with heart failure
CPT/HCPCS: 36415; 80048; 83036

== ENCOUNTER 2018-06-27 08:12 | Outpatient (CLI) | payer MEDICARE ==
[2018-06-27 09:12] LABS: BUN - BLOOD UREA NITROGEN 17 mg/dL (6-20); CALCIUM 8.9 mg/dL (8.5-10.3); CARBON DIOXIDE - CO2 30 mmol/L (21-32); CHLORIDE 98 mmol/L (101-111); CHOL/HDL RATIO 3.9 (<4.4); CHOLESTEROL 170 mg/dL; CREATININE 1.1 mg/dL (0.4-1.0); GFR - MDRD 49 (>89); GLUCOSE 198 mg/dL (70-100); HDL CHOLESTEROL 44 mg/dL; LDL CHOLESTEROL,CALCULATED 79 mg/dL; LDL/HDL RATIO 1.8 (<4.4); SODIUM 138 mmol/L (135-145); VLDL CHOLESTEROL 47 mg/dL
[2018-06-27 09:55] LABS: HB2 TOTAL 16.7 g/dL; HEMOGLOBIN A1C 1.71 g/dL; HEMOGLOBIN A1C % 11.5 % (4.6-6.2)
[2018-06-27 10:00] LABS: THYROID STIMULATING HORMONE 5.92 uIU/mL (0.34-5.60)
[2018-06-27 11:41] LABS: FREE T4 (FREE THYROXINE) 0.91 ng/dL (0.58-1.64)
== END 2018-06-27 08:13 | disposition home or self-care (01) ==
LOC: LAB 08:12
PROVIDERS: ATTEND Family Medicine
DX: J44.9 Chronic obstructive pulmonary disease, unspecified (principal); I50.9 Heart failure, unspecified; I10 Essential (primary) hypertension; E10.9 Type 1 diabetes mellitus without complications; E78.5 Hyperlipidemia, unspecified
CPT/HCPCS: 36415; 80048; 80061; 83036; 83721; 84439; 84443

== ENCOUNTER 2018-10-18 10:38 | Inpatient (IN) | payer MEDICARE ==
--- NOTE | 2018-10-18 10:59 | ED Physician Documentation ---
PD HPI DYSPNEA - Stated complaint Stated Complaint: SOA - Chief complaint Chief Complaint: Resp - History obtained from History obtained from: Patient - History of Present Illness Timing - onset: How many weeks ago (1) Timing - onset during: Light activity Timing - duration: Weeks Timing - details: Gradual onset (She has had a cough and some increased dyspnea over baseline for the last week or so. She is seen by her provider 3 days ago and had a chest x-ray which did not show any significant infiltrates. She was started on doxycycline. She does not normally use any inhalers or steroids. She did not have oxygen at home currently. She states she had it years ago but has not required it recently. She says she has had increasing dyspnea and general weakness over the last couple of days. She felt really short of breath this morning try to get up and around out of bed.), Still present Inciting event(s): URI (cough and congestion, but no fevers.) Improved by: Rest Worsened by: Exertion (even just walking in room today), Coughing. No: Laying flat Associated symptoms: Cough, Wheezing, Chest pain / discomfort (twinges of pain over the past week). No: Fever, Palpitations, Bilateral edema Similar symptoms before: Diagnosis (has past history of CHF though not on diuretics for few years. History of COPD without current use of inhalers, nor any need for oxygen at home.) Recently seen: Clinic (3 days ago) Review of Systems Constitutional: reports: Myalgias, Fatigue. denies: Fever Nose: reports: Congestion. denies: Rhinorrhea / runny nose Throat: denies: Sore throat Cardiac: reports: Chest pain / pressure (at times the past week). denies: Pa lpitations, Pedal edema Respiratory: reports: Dyspnea, Cough, Wheezing GI: reports: Diarrhea (regularly). denies: Abdominal Pain, Nausea, Vomiting : denies: Frequency Neurologic: reports: Generalized weakness. denies: Focal weakness, Numbness, Near syncope PD PAST MEDICAL HISTORY - Past Medical History Cardiovascular: Congestive heart failure, Hypertension, High cholesterol, Peripheral Vascular Disease Respiratory: COPD, Pneumonia Endocrine/Autoimmune: Type 2 diabetes GI: Chronic constipation : None HEENT: Chronic vision loss, Chronic sinusitis, Other Psych: Depression, Anxiety, Panic attacks Musculoskeletal: None Derm: Eczema - Past Surgical History Past Surgical History: Yes General: Appendectomy, Bowel surgery, Other Ortho: Arthroscopic surgery, Carpal Tunnel surgery /BRICK SIDING APPLICATOR: Dilation and currettage Cardiovascular: Cardiac catheterization, Other HEENT: Tonsil/Adenoidectomy - Present Medications Home Medications: Ambulatory Orders Medication Instructions Recorded Confirmed cloNIDine HCl [Clonidine HCl] 0.1 mg PO QPM 10/12/13 10/18/18 Aspirin Chewable [St Sami 81 mg PO DAILY 03/30/14 10/18/18 Aspirin] Bisacodyl [Dulcolax] 10 mg PO DAILY PRN 03/30/14 10/18/18 Loratadine [Claritin] 10 mg PO DAILY 03/30/14 10/18/18 Triamcinolone Acetonide 0.1 - 0.5 mg TOP DAILY PRN 03/30/14 10/18/18 Acetaminophen [Tylenol Extra 2 tab PO Q8HR PRN 07/17/14 10/18/18 Strength] Atorvastatin Calcium 80 mg PO QPM 05/22/17 10/18/18 Docusate Sodium 250Mg Capsule 250 mg PO BID PRN 05/22/17 10/18/18 [Colace 250Mg Capsule] Escitalopram Oxalate [Lexapro] 20 mg PO DAILY 05/22/17 10/18/18 Lorazepam [Ativan] 1 mg PO QPM 05/22/17 10/18/18 Losartan Potassium [Cozaar] 100 mg PO DAILY 05/22/17 10/18/18 Doxycycline Hyclate 100 mg PO 10/18/18 Escitalopram [Lexapro] 10 mg PO DAILY 10/18/18 10/18/18 Insulin Glargine,Hum.rec.anlog 0 unit SUBQ 10/18/18 [Basaglar Kwikpen U-100] Metoprolol Tartrate 25 mg PO 10/18/18 - Allergies Allergies/Adverse Reactions: Allergies Allergy/AdvReac Type Severity Reaction Status Date / Time Sulfa (Sulfonamide AdvReac Intermediate Edema Verified 10/18/18 10:52 Antibiotics) lisinopril AdvReac Itching Verified 10/18/18 10:52 chest nuts Allergy Anaphylaxis Uncoded 10/18/18 10:52 - Social History Does the pt smoke?: No Smoking Status: Former smoker Does the pt drink ETOH?: No Does the pt have substance abuse?: No - Family History Family history: reports: CAD - Immunizations Immunizations are current?: Yes - POLST Patient has POLST: Yes POLST Status: DNR PD ED PE NORMAL - Vitals Vital signs reviewed: Yes (Sats 86% RA, improved with [place] oxygen) - General General: Alert and oriented X 3, Well developed/nourished - HEENT HEENT: Ears normal, Pharynx benign - Neck Neck: Supple, no meningeal sign, No adenopathy, Other (mild JVD at 30 degrees, but does not feel dyspnea with the position. ) - Cardiac Cardiac: No murmur. No: RRR (somewhat irregular. No murmur. ) - Respiratory Respiratory: No: Clear bilaterally (diffuse mild wheezing. Some fine crackles at bases. Slightly hoarse voice. ) - Abdomen Abdomen: Normal bowel sounds, Soft, Non tender - Female Female : Deferred - Rectal Rectal: Deferred - Back Back: No CVA TTP - Derm Derm: Normal color, Warm and dry - Extremities Extremities: No tenderness to palpate, Normal ROM s pain, No edema, No calf tenderness / cord, Other (resting tremor mostly right arm, but some generally. ) - Neuro Neuro: Alert and oriented X 3 Eye Opening: Spontaneous Motor: Obeys Commands Verbal: Oriented GCS Score: 15 Results - Vitals Vitals: Vital Signs - 24 hr 10/18/18 10/18/18 10/18/18 10:44 11:46 11:59 Temperature 36.8 C Heart Rate 79 79 79 Respiratory 24 21 21 Rate Blood Pressure 150/60 H 120/79 O2 Saturation 86 L 92 Oxygen O2 Source Nasal cannula Oxygen Flow Rate 4 - EKG (time done) 10:45 Rate: Rate (enter#) (100) Rhythm: NSR (there is poor baseline and some artifact, but I think there are p waves in there, but also some PVCs. ) - Labs Labs: Laboratory Tests 10/18/18 10/18/18 10/18/18 11:00 11:36 11:36 WBC 10.8 RBC 4.23 Hgb 14.1 Hct 41.2 MCV 97.3 MCH 33.3 H MCHC 34.3 RDW 13.7 Plt Count 191 MPV 8.8 Neut # (Auto) 9.0 H Lymph # (Auto) 0.9 L [place] # (Auto) 0.7 Eos # (Auto) 0.1 Baso # (Auto) 0.1 Absolute Nucleated RBC 0.00 Nucleated RBC % 0.0 Sodium 136 Potassium 4.8 Chloride 99 L Carbon Dioxide 25 Anion Gap 12.0 BUN 23 H Creatinine 1.2 H Estimated GFR (MDRD) 44 L Glucose 373 H POC Whole Bld Glucose 340 H Calcium 8.7 Magnesium 1.7 Total Bilirubin 1.0 AST 20 ALT 21 Alkaline Phosphatase 80 Troponin I B-Natriuretic Peptide Total Protein 6.3 L Albumin 3.5 Globulin 2.8 Albumin/Globulin Ratio 1.3 Lipase 18 L TSH 10/18/18 10/18/18 10/18/18 11:36 11:36 11:36 WBC RBC Hgb Hct MCV MCH MCHC RDW Plt Count MPV Neut # (Auto) Lymph # (Auto) [place] # (Auto) Eos # (Auto) Baso # (Auto) Absolute Nucleated RBC Nucleated RBC % Sodium Potassium Chloride Carbon Dioxide Anion Gap BUN Creatinine Estimated GFR (MDRD) Glucose POC Whole Bld Glucose Calcium Magnesium Total Bilirubin AST ALT Alkaline Phosphatase Troponin I < 0.04 B-Natriuretic Peptide 461 H Total Protein Albumin Globulin Albumin/Globulin Ratio Lipase TSH 0.39 - Rads (name of study) chest xray Radiology: Prelim report reviewed (Mild cardiomegaly. Diffuse interstitial changes consistent with edema or pneumonitis. Right middle lobe infiltrate likely pneumonia.), EMP read contemporaneously PD MEDICAL DECISION MAKING - ED course Complexity details: reviewed results, re-evaluated patient (Her breathing feels improved with the nebulizer treatment. Her chest x-ray seems consistent with possibly some CHF as well as pneumonia. She does not have a fever and no white count elevation. Her BNP is moderately elevated at 460. Her oxygen saturations are at 90-91% with nasal cannula. I think will need further evaluation and continued treatment with antibiotics, nebulizers, oxygen and further testing. I talked with the hospitalist who will have her in the hospital for further care.), considered differential (Consider COPD exacerbation, pneumonia, viral illness, CHF, MA. Will test for the above.), d/w patient Departure - Departure Disposition: 66 [facility] DC/Xfer Clinical Impression: COPD exacerbation Dyspnea Qualifiers: Dyspnea type: dyspnea on exertion Qualified Code(s): R06.09 - Other forms of dyspnea Pneumonia Qualifiers: Pneumonia type: due to unspecified organism Laterality: right Lung location: middle lobe of lung Qualified Code(s): J18.1 - Lobar pneumonia, unspecified organism CHF (congestive heart failure) Qualifiers: Heart failure type: unspecified Heart failure chronicity: acute on chronic Qualified Code(s): I50.9 - Heart failure, unspecified Condition: Stable Record reviewed to determine appropriate education?: Yes
[2018-10-18] MEDS ORDERED: IPRATROPIUM/ALBUTEROL 3 ML NEB INH STA (11:31)
[2018-10-18 11:52] LABS: ALBUMIN 3.5 g/dL (3.2-5.5); ALBUMIN/GLOBULIN RATIO 1.3 (1.0-2.2); CALCIUM 8.7 mg/dL (8.5-10.3); CREATININE 1.2 mg/dL (0.4-1.0); MAGNESIUM 1.7 mg/dL (1.7-2.8); TOTAL PROTEIN 6.3 g/dL (6.7-8.2)
[2018-10-18 11:57] LABS: BASOPHILS # (AUTO) 0.1 10^3/uL (0.0-0.1); BASOPHILS % (AUTO) 0.6 %; EOSINOPHILS # (AUTO) 0.1 10^3/uL (0.0-0.7); EOSINOPHILS % (AUTO) 0.7 %; HGB - HEMOGLOBIN 14.1 g/dL (12.0-16.0); LYMPHOCYTES # (AUTO) 0.9 10^3/uL (1.5-3.5); LYMPHOCYTES % (AUTO) 8.2 %; MEAN CORPUSCULAR HEMOGLOBIN 33.3 pg (27.0-31.0); MEAN CORPUSCULAR HGB CONC 34.3 g/dL (32.0-36.0); MEAN CORPUSCULAR VOLUME 97.3 fL (81.0-99.0); MEAN PLATELET VOLUME 8.8 fL (7.9-10.8); MONOCYTES # (AUTO) 0.7 10^3/uL (0.0-1.0); MONOCYTES % (AUTO) 6.7 %; NEUTROPHILS % (AUTO) 83.8 %; PLT - PLATELET COUNT 191 10^3/uL (130-450); RED BLOOD COUNT 4.23 10^6/uL (4.20-5.40); RED CELL DISTRIBUTION WIDTH 13.7 % (12.0-15.0); WHITE BLOOD COUNT 10.8 x10^3/uL (4.8-10.8)
--- NOTE | 2018-10-18 12:03 | XRAY Report ---
Reason: dyspnea and cough Procedure Date: 10/18/2018 Accession Number: [id number] / [id number] Procedure: XR - Chest 1 View X-Ray CPT Code: 72696 FULL RESULT: EXAM: CHEST RADIOGRAPHY EXAM DATE: 10/18/2018 11:42 AM. CLINICAL HISTORY: Dyspnea and cough. COMPARISON: CHEST 2 VIEW PA/LAT 10/16/2018 2:44 PM. TECHNIQUE: 1 view. FINDINGS: Lungs/Pleura: Mild perihilar opacity, perihilar bronchial cuffing bilaterally again noted, slightly increased. New or worsening patchy opacity in the lateral left mid lower lung zone V's advice. Otherwise, no new focal opacities evident. No pleural effusion. No pneumothorax. Mediastinum: Mild/moderate cardiomegaly again noted, similar to the prior exam. Other: None. IMPRESSION: 1. Persistent mild/moderate cardiomegaly and interval worsening mild pulmonary edema. 2. Interval new or worsening patchy small pulmonary opacity in the lateral left midlung zone, suggesting worsening pulmonary edema versus superimposed infiltrate processing or pneumonia; continue chest x-ray 2 views follow-up in 2-4 weeks is recommended. [facility]
[2018-10-18] MEDS ORDERED: cefTRIAXone 1 GM VIAL IVP STA (12:17)
[2018-10-18] MEDS ORDERED: FUROSEMIDE 40 MG/4 ML VIAL IVP STA (12:17)
[2018-10-18] MEDS ORDERED: AZITHROMYCIN INJ 500 MG in SODIUM CHLORIDE 0.9% 250 ML IV STA (12:17)
[2018-10-18] MEDS ORDERED: ALBUTEROL NEB 2.5 MG/3 ML INH STA (13:42)
[2018-10-18] MEDS ORDERED: ACETAMINOPHEN 325 MG TABLET PO PRN (13:48)
[2018-10-18] MEDS ORDERED: ZOLPIDEM 5 MG TABLET PO PRN (13:48)
[2018-10-18] MEDS ORDERED: ONDANSETRON 4 MG/2 ML VIAL IVP PRN (13:48)
[2018-10-18] MEDS ORDERED: BISACODYL 5 MG TABLET PO PRN (13:54)
[2018-10-18] MEDS ORDERED: DOCUSATE SODIUM 250 MG CAPSULE PO PRN (13:54)
[2018-10-18] MEDS ORDERED: TRIAMCINOLONE 0.5% CREAM 15 GM TUBE TOP PRN (13:54)
[2018-10-18] MEDS ORDERED: INSULIN ASPART 300 UNIT/3 ML PEN SUBQ ONE (13:58)
[2018-10-18] MEDS ORDERED: ALBUTEROL NEB 2.5 MG/3 ML INH PRN (14:04)
--- NOTE | 2018-10-18 14:05 | HISTORY & PHYSICAL EXAMINATION ---
Chief Complaint - Chief Complaint Chief Complaint: SOB History of Present Illness - History of Present Illness HPI Comment/Other: The patient is a 73-year-old female with a past medical history significant for insulin-dependent diabetes, hypertension, hyperlipidemia, CKD, Afib, morbid obesity, hypothyroidism, diastolic heart failure, depression and recent diagnosis of COPD, who present ER complain of increased shortness of breath. Pt report she had a gradual onset of dyspnea for recent about two weeks. She also report she had dry cough. She went to her PCP three days ago, had a chest x-ray which did not show significant infiltrates, she was started on Doxycycline. It seems no much improvement since she had this treatment. She felt very shortness of breath this morning. She report she stopped to take her Lasix for about two months, which was prescribed 60 mg daily, because she was not happy she went to go to bath for so many times. She report new onset of headache as well today. She denies fever, chill, chest pain, abdominal pain, nausea, vomiting, diarrhea, dysuria, vision changes. Her CXR indicated possible pneumonia with increase of pulmonary edema. her Lab test today reveals hyperglycemia and persistent chronic renal disease. Today Pt is afebrile, slight elevated blood pressure, hypoxia 86% sats on room air, heart rate is 79, respiratory rate is 21. Pt is admitted for further evaluation and treatment. History - Past Medical History Cardiovascular: reports: Congestive heart failure, Hypertension, High cholesterol, Peripheral Vascular Disease Respiratory: reports: COPD, Pneumonia Endocrine/Autoimmune: reports: Type 2 diabetes GI: reports: Chronic constipation : reports: None HEENT: reports: Chronic vision loss, Chronic sinusitis, Other Psych: reports: Depression, Anxiety, Panic attacks Musculoskeletal: reports: None Derm: reports: Eczema MRSA Hx?: Yes - Past Surgical History General: reports: Appendectomy, Bowel surgery, Other Ortho: reports: Arthroscopic surgery, Carpal Tunnel surgery /INSPECTOR SALVAGE: reports: Dilation and currettage Cardiovascular: reports: Cardiac catheterization, Other HEENT: reports: Tonsil/Adenoidectomy - Family & Social History Family History: Mother: , CVA/TIA, Diabetes, Type 1, Father: , CAD Family History Comment/Other: pt is living at [facility] with her daughter. She i s window, she had one daughter. Social History Notes: The patient has been twice. Her second of metastatic cancer 10/18/2013. 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 She worked at [employer] in [place], [facility] in [place], [place] and various hospitals in [place]. 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 Although the patient has no biological children she has a very close friend whom she calls her daughter and who is also her durable power of employment law attorney. The patient has never been a heavy drinker. She is a remote history of smoking. She started the age of 18 and stopped approximately at the age of 28 and smoked one pack per day. She moved to [facility] in 1991. She currently lives with a dog and 2 cats. - Substance History Use: Uses substance without health or social issues: NONE - POLST Patient has POLST: Yes POLST Status: DNR Meds/Allgy - Home Medications Home Medications: Ambulatory Orders Medication Instructions Recorded Confirmed cloNIDine HCl [Clonidine HCl] 0.1 mg PO QPM 10/12/13 10/18/18 Aspirin Chewable [St Sami 81 mg PO DAILY 03/30/14 10/18/18 Aspirin] Bisacodyl [Dulcolax] 10 mg PO DAILY PRN 03/30/14 10/18/18 Loratadine [Claritin] 10 mg PO DAILY 03/30/14 10/18/18 Triamcinolone Acetonide 0.1 - 0.5 mg TOP DAILY PRN 03/30/14 10/18/18 Acetaminophen [Tylenol Extra 2 tab PO Q8HR PRN 07/17/14 10/18/18 Strength] Atorvastatin Calcium 80 mg PO QPM 05/22/17 10/18/18 Docusate Sodium 250Mg Capsule 250 mg PO BID PRN 05/22/17 10/18/18 [Colace 250Mg Capsule] Lorazepam [Ativan] 1 mg PO QPM 05/22/17 10/18/18 Losartan Potassium [Cozaar] 100 mg PO DAILY 05/22/17 10/18/18 Doxycycline Hyclate 100 mg PO 10/18/18 Escitalopram [Lexapro] 20 mg PO DAILY 10/18/18 10/18/18 Insulin Glargine,Hum.rec.anlog 40 unit SUBQ DAILY 10/18/18 10/18/18 [Basaglar Kwikpen U-100] Metoprolol Tartrate 50 mg PO BID 10/18/18 10/18/18 - Allergies Allergies/Adverse Reactions: Allergies Allergy/AdvReac Type Severity Reaction Status Date / Time Sulfa (Sulfonamide AdvReac Intermediate Edema Verified 10/18/18 10:52 Antibiotics) lisinopril AdvReac Itching Verified 10/18/18 10:52 chest nuts Allergy Anaphylaxis Uncoded 10/18/18 10:52 Review of Systems - Constitutional Constitutional: reports: Fatigue, Weakness. denies: Fever, Chills, Malaise, Poo r appetite, Diaphoresis, Night sweats - Eyes Eyes: denies: Pain, Irritation, Amaurosis, Blurred vision, Spots in vision, Field loss, Vision loss, Dipolpia - Ears, Nose & Throat Ears, Nose & Throat: denies: Ear pain, Hearing loss, Hearing aids, Tinnitus, Vertigo, Nasal pain, Nasal discharge, Nosebleeds, Nasal obstruction, Nasal congestion, Postnasal drainage, Dentures, Sore throat - Cardiovascular Cariovascular: reports: Exertional dyspnea, Decr. exercise tolerance. denies: Irregular heart rate, Palpitations, Chest pain, Edema, Lightheadedness, Syncope - Respiratory Respiratory: reports: Cough, SOB with exertion. denies: Sputum production, Wheezing, Snoring, Hemoptysis, Orthopnea, SOB at rest - Gastrointestinal Gastrointestinal: denies: Abdominal pain, Abdominal distention, Constipation, Diarrhea, Change in bowel habits, Rectal bleeding, Black stools, Bloody stools, Nausea, Vomiting, Bile emesis, Isacc blood emesis, Coffee grounds emesis, Reflux/heartburn, Bloating, Poor appetite - Genitourinary Genitourinary: denies: Dysuria, Frequency, Urgency, Hematuria, Incontinence, Flank pain, Nocturia, Urethral discharge - Musculoskeletal Musculoskeletal: denies: Muscle pain, Back pain, Muscle aches, Stiffness, Limit ed range of motion, Muscle weakness, Gout, Joint pain - Integumentary Integumentary: denies: Rash, Pruritis, Lesions, Dryness, Lumps, Acne, Pigment changes, Nail changes - Neurological Neurological: denies: General weakness, Focal weakness, Headache, Dizziness, Numbness, Memory problems, Pre-existing deficit, Abnormal gait, Seizures, Incoordination, Slurred speech - Psychiatric Psychiatric: denies: Depression, Anxiety, Suicidal, Delusions, Hallucinations, Homicidal - Endocrine Endocrine: denies: Polyuria, Polydypsia, Polyphagia, Intolerance to cold - Hematologic/Lymphatic Hematologic/Lymphatic: denies: Anemia, Bruising, Petechiae, Blood clots, Lymphadenopathy, Bleeding tendencies Prior Level of Functionality: independent Exam - Vital Signs Reviewed Vital Signs: Yes Vital Signs: Vital Signs x48h Temp Pulse Resp BP Pulse Ox 10/18/18 12:52 100 20 136/96 H 91 L 10/18/18 11:59 79 21 120/79 92 10/18/18 11:46 79 21 10/18/18 10:44 36.8 C 79 24 150/60 H 86 L - Physical Exam General Appearance: positive: No acute distress, Alert. negative: Lethargic Eyes Bilateral: positive: Normal inspection, PERRL, No lid inflammation, Conjunctivae nml ENT: positive: ENT inspection nml, Pharynx nml, No signs of dehydration. negative: Purulent nasal drainage, Pharyngeal erythema, Oral lesions Neck: positive: Nml inspection, Thyroid nml, No JVD, Trachea midline. negative: Thyromegaly, Lymphadenopathy (R), Lymphadenopathy (L), Stiff neck, Swelling/bruising, Tracheal deviation Respiratory: positive: Chest non-tender, No respiratory distress, Breath sounds nml. negative: Wheezes, Rales, Rhonchi Cardiovascular: positive: Regular rate & rhythm, No murmur, No gallop. negative: Irregularly irregular, Extrasystoles, Tachycardia, Bradycardia, JVD present, Systolic murmur, Diastolic murmur Peripheral Pulses: positive: 2+ Abdomen: positive: Non-tender, No organomegaly, Nml bowel sounds, No distention. negative: Tenderness, Guarding, Rebound Back: positive: Nml inspection. negative: CVA tenderness (R), CVA tenderness (L) Skin: positive: Color nml, No rash, Warm, Dry. negative: Cyanosis, Diaphoresis, Pallor Extremities: positive: Non-tender, Full ROM, Nml appearance. negative: Calf tenderness, Joint swelling, Edda's sign/cords Neurologic/Psychiatric: positive: Oriented x3, Sensation nml, Mood/affect nml. negative: Weakness, Sensory loss, Facial droop, Slurred/abnml speech, Depressed mood/affect Sepsis Event Note (H) - Evaluation Current Stage of Sepsis: Ruled out Conclusion/Plan - Problem List (1) CHF exacerbation Conclusion/Plan: pt did not take her lasix for around 2 months per pt state. CXR reveals increase pulmonary edema. pt present SOB for weeks start Lasix 40mg IV bid ECHO test lab, tele, and vital monitor (2) Pneumonia Conclusion/Plan: CXR reveal pneumonia, present cough and SOB. but no fever, chill, WBC is 10.8 treat with antibiotics, Azith and rocephin vital monitor (3) DM2 (diabetes mellitus, type 2) Conclusion/Plan: un-controlled DM2 with over 300 glucose will check A1C resume home Lantus start slide scale once Novelog 8unit lab monitor start hypoglycemia protocol (4) HTN (hypertension) Conclusion/Plan: slight BP in ER, will resume home meds vital monitor (5) CKD (chronic kidney disease) stage 3, GFR 30-59 ml/min Conclusion/Plan: stable, keep hydration, continue lab monitor (7) Atrial fibrillation Conclusion/Plan: pt has Afib but only with Aspirin. CHADS score is 3, will discuss with pt if start on new blood thinner, anticoagulation Qualifiers: Atrial fibrillation type: unspecified Qualified Code(s): I48.91 - Unspecified atrial fibrillation (8) Medical non-compliance Conclusion/Plan: pt did not take her home Lasix for about two months per pt report. consult for pt for her medical non-compliance (9) Do not intubate, cardiopulmonary resuscitation (CPR)-only code status Conclusion/Plan: pt clearly request DNR - Lab Results Fish Bones: 10/18/18 11:36 10/18/18 11:36 Core Measures - Anticipated LOS I expect patient to be DC'd or transferred within 96 hours.: Yes - DVT/VTE - Prophylaxis VTE/DVT Device ordered at admit?: Yes VTE/DVT Prophylaxis med ordered at admit?: Yes
[2018-10-18] MEDS ORDERED: IPRATROPIUM/ALBUTEROL 3 ML NEB INH PRN (14:21)
[2018-10-18] MEDS: FUROSEMIDE 40 MG/4 ML VIAL IVP SCH (14:44)
[2018-10-18] MEDS: SODIUM CHLORIDE FLUSH 0.9% 10 ML SYRINGE IVP PRN (14:45)
[2018-10-18] MEDS: METOPROLOL TARTRATE 25 MG TABLET PO SCH ×2 (15:01→20:16)
[2018-10-18 15:59] LABS: HB2 TOTAL 15.3 g/dL; HEMOGLOBIN A1C 1.26 g/dL; HEMOGLOBIN A1C % 9.7 % (4.6-6.2)
[2018-10-18] MEDS ORDERED: INSULIN ASPART 300 UNIT/3 ML PEN SUBQ SCH (17:00)
[2018-10-18] MEDS: INSULIN ASPART 300 UNIT/3 ML PEN SUBQ SCH ×2 (17:00→20:18)
[2018-10-18] MEDS: SODIUM CHLORIDE FLUSH 0.9% 10 ML SYRINGE IVP SCH (17:01)
--- NOTE | 2018-10-18 17:52 | CT Report ---
Reason: new onset of headache Procedure Date: 10/18/2018 Accession Number: [id number] / [id number] Procedure: CT - Head W/O CPT Code: FULL RESULT: EXAM: CT HEAD EXAM DATE: 10/18/2018 04:35 PM. CLINICAL HISTORY: New onset of headache. COMPARISON: None. TECHNIQUE: Multiaxial CT images were obtained from the foramen magnum to the vertex. Reformats: Sagittal and coronal. IV contrast: None. In accordance with CT protocol optimization, one or more of the following dose reduction techniques were utilized for this exam: automated exposure control, adjustment of mA and/or KV based on patient size, or use of iterative reconstructive technique. FINDINGS: Parenchyma: Shelley-white differentiation is distinct. No intracranial bleed or mass-effect. Extraaxial Spaces: Prominent falcine calcification. No subdural or epidural collections identified. Ventricles: Normal in size and position. Sinuses and Orbits: Imaged paranasal sinuses, orbits, and mastoids show no significant abnormality. Bones: Hyperostosis frontalis interna. Other: Status post bilateral lens surgery. IMPRESSION: Unremarkable noncontrast head CT. No intracranial bleed or mass-effect. RADIA
[2018-10-18] MEDS: ATORVASTATIN 40 MG TABLET PO SCH (20:15)
[2018-10-18] MEDS: ACETAMINOPHEN 500 MG TABLET PO PRN (20:15)
[2018-10-18] MEDS: FAMOTIDINE 20 MG TABLET PO SCH (20:16)
[2018-10-18] MEDS: cloNIDine 0.1 MG TABLET PO SCH (20:16)
[2018-10-18] MEDS ORDERED: LORazepam 1 MG TABLET PO SCH (21:00)
[2018-10-18] MEDS: ALBUTEROL NEB 2.5 MG/3 ML INH SCH (23:40)
[2018-10-19] MEDS: SODIUM CHLORIDE FLUSH 0.9% 10 ML SYRINGE IVP SCH ×4 (00:06→17:11)
[2018-10-19] MEDS: ALBUTEROL NEB 2.5 MG/3 ML INH SCH ×4 (04:59→20:06)
[2018-10-19 06:43] LABS: BASOPHILS # (AUTO) 0.1 10^3/uL (0.0-0.1); BASOPHILS % (AUTO) 0.7 %; EOSINOPHILS # (AUTO) 0.2 10^3/uL (0.0-0.7); EOSINOPHILS % (AUTO) 2.9 %; HGB - HEMOGLOBIN 13.2 g/dL (12.0-16.0); LYMPHOCYTES # (AUTO) 1.1 10^3/uL (1.5-3.5); LYMPHOCYTES % (AUTO) 14.5 %; MEAN CORPUSCULAR HEMOGLOBIN 32.4 pg (27.0-31.0); MEAN CORPUSCULAR HGB CONC 32.6 g/dL (32.0-36.0); MEAN CORPUSCULAR VOLUME 99.5 fL (81.0-99.0); MEAN PLATELET VOLUME 8.6 fL (7.9-10.8); MONOCYTES # (AUTO) 0.8 10^3/uL (0.0-1.0); MONOCYTES % (AUTO) 9.6 %; NEUTROPHILS # (AUTO) 5.7 10^3/uL (1.5-6.6); NEUTROPHILS % (AUTO) 72.3 %; PLT - PLATELET COUNT 183 10^3/uL (130-450); RED BLOOD COUNT 4.09 10^6/uL (4.20-5.40); RED CELL DISTRIBUTION WIDTH 13.7 % (12.0-15.0); WHITE BLOOD COUNT 7.9 x10^3/uL (4.8-10.8)
[2018-10-19 06:56] LABS: ALBUMIN 3.4 g/dL (3.2-5.5); ALBUMIN/GLOBULIN RATIO 1.4 (1.0-2.2); CALCIUM 8.4 mg/dL (8.5-10.3); CREATININE 1.2 mg/dL (0.4-1.0); MAGNESIUM 1.7 mg/dL (1.7-2.8); TOTAL PROTEIN 5.9 g/dL (6.7-8.2)
[2018-10-19] MEDS: FUROSEMIDE 40 MG/4 ML VIAL IVP SCH ×2 (06:57→15:02)
[2018-10-19] MEDS ORDERED: SODIUM CHLORIDE FLUSH 0.9% 10 ML SYRINGE ONE (08:18)
[2018-10-19] MEDS: cefTRIAXone 1 GM in SODIUM CHLORIDE 0.9% MINIBAG 100 ML IV SCH (08:35)
[2018-10-19] MEDS: INSULIN GLARGINE 300 UNIT/3 ML PEN SUBQ SCH (08:38)
[2018-10-19] MEDS: INSULIN ASPART 300 UNIT/3 ML PEN SUBQ SCH ×4 (08:39→20:35)
[2018-10-19] MEDS: ENOXAPARIN 40 MG/0.4 ML SYRINGE SUBQ SCH (08:40)
[2018-10-19] MEDS: LOSARTAN 50 MG TABLET PO SCH (08:43)
[2018-10-19] MEDS: METOPROLOL TARTRATE 25 MG TABLET PO SCH ×2 (08:43→20:34)
[2018-10-19] MEDS: ASPIRIN CHEW 81 MG TABLET PO SCH (08:43)
[2018-10-19] MEDS: LORATADINE 10 MG TABLET PO SCH (08:43)
[2018-10-19] MEDS: AZITHROMYCIN 250 MG TABLET PO SCH (08:44)
[2018-10-19] MEDS: ESCITALOPRAM 10 MG TABLET PO SCH (08:44)
[2018-10-19] MEDS: FAMOTIDINE 20 MG TABLET PO SCH ×2 (08:44→20:34)
[2018-10-19] MEDS ORDERED: cefTRIAXone 1 GM VIAL IVP SCH (09:00)
[2018-10-19] MEDS: POLYETHYLENE GLYCOL 3350 17 GM PACKET PO SCH (10:34)
--- NOTE | 2018-10-19 12:32 | PROVIDER PROGRESS NOTE ---
Subjective - Prog Note Date Prog Note Date: 10/19/18 - Subjective Pt reports feeling: Improved Subjective: pt report she feel better, breath is much better. she is comfortablly ate her breakfast. She denies fever, chill, CP. Current Medications - Current Medications Current Medications: Active Medications Acetaminophen (Tylenol) 1,000 mg PO BID PRN PRN Reason: Pain or Fever > 38C (100.4F) Last Admin: 10/18/18 20:15 Dose: 1,000 mg Albuterol () 2.5 mg INH RTQ6H [facility] Last Admin: 10/19/18 07:50 Dose: 2.5 mg Albuterol/Ipratropium (Duoneb) 3 ml INH RTQID PRN PRN Reason: Shortness of Air/Wheezing Aspirin (St Sami Aspirin) 81 mg PO DAILY [facility] Last Admin: 10/19/18 08:43 Dose: 81 mg Atorvastatin Calcium (Lipitor) 80 mg PO QPM [facility] Last Admin: 10/18/18 20:15 Dose: 80 mg Azithromycin (Zithromax) 500 mg PO DAILY [facility] Last Admin: 10/19/18 08:44 Dose: 500 mg Bisacodyl (Dulcolax) 10 mg PO DAILY PRN PRN Reason: Constipation Clonidine HCl (Catapres) 0.1 mg PO QPM [facility] Last Admin: 10/18/18 20:16 Dose: 0.1 mg Docusate Sodium (Colace 250mg Capsule) 250 mg PO BID PRN PRN Reason: Constipation Enoxaparin Sodium (Lovenox) 40 mg SUBQ DAILY [facility] Last Admin: 10/19/18 08:40 Dose: 40 mg Escitalopram Oxalate (Lexapro) 20 mg PO DAILY [facility] Last Admin: 10/19/18 08:44 Dose: 20 mg Famotidine (Pepcid) 20 mg PO BID [facility] Last Admin: 10/19/18 08:44 Dose: 20 mg Furosemide (Lasix Inj 40 Mg Vial) 40 mg IVP BIDDIURETIC [facility] Last Admin: 10/19/18 06:57 Dose: 40 mg Ceftriaxone Sodium 1 gm/ (Sodium Chloride) 100 mls @ 200 mls/hr IV DAILY [facility] Last Infusion: 10/19/18 09:05 Dose: Infused Insulin Aspart (Novolog) 3 - 11 unit SUBQ 0800,1200,1700,2100 DEBBY; Protocol Last Admin: 10/19/18 12:10 Dose: 9 unit Insulin Glargine (Lantus Solostar) 40 unit SUBQ DAILY [facility] Last Admin: 10/19/18 08:38 Dose: 40 unit Loratadine (Claritin) 10 mg PO DAILY [facility] Last Admin: 10/19/18 08:43 Dose: 10 mg Lorazepam (Ativan) 1 mg PO QPM [facility] Last Admin: 10/18/18 20:15 Dose: 1 mg Losartan Potassium (Cozaar) 100 mg PO DAILY [facility] Last Admin: 10/19/18 08:43 Dose: 100 mg Metoprolol Tartrate (Lopressor) 50 mg PO BID [facility] Last Admin: 10/19/18 08:43 Dose: 50 mg Ondansetron HCl (Zofran Inj) 4 mg IVP Q6HR PRN PRN Reason: Nausea / Vomiting Polyethylene Glycol (Miralax) 17 gm PO DAILY [facility] Last Admin: 10/19/18 10:34 Dose: 17 gm Sodium Chloride (Normal Saline Flush 0.9%) 10 ml IVP PRN PRN PRN Reason: NEEDED PER PROVIDER ORDERS Last Admin: 10/18/18 14:45 Dose: 10 ml Sodium Chloride (Normal Saline Flush 0.9%) 10 ml IVP 0100,0900,1700 [facility] Last Admin: 10/19/18 08:40 Dose: 10 ml Triamcinolone Acetonide (Kenalog 0.5% Cream) 1 applic TOP DAILY PRN PRN Reason: ITCHING Zolpidem Tartrate (Ambien) 5 mg PO QPM PRN PRN Reason: Insomnia cloNIDine HCl [Clonidine HCl] 0.1 mg PO QPM 10/12/13 Aspirin Chewable [St Sami Aspirin] 81 mg PO DAILY 03/30/14 Bisacodyl [Dulcolax] 10 mg PO DAILY PRN 03/30/14 Loratadine [Claritin] 10 mg PO DAILY 03/30/14 Triamcinolone Acetonide 0.1 - 0.5 mg TOP DAILY PRN 03/30/14 Acetaminophen [Tylenol Extra Strength] 2 tab PO Q8HR PRN 07/17/14 Atorvastatin Calcium 80 mg PO QPM 05/22/17 Docusate Sodium 250Mg Capsule [Colace 250Mg Capsule] 250 mg PO BID PRN 05/22/17 Lorazepam [Ativan] 1 mg PO QPM 05/22/17 Losartan Potassium [Cozaar] 100 mg PO DAILY 05/22/17 Doxycycline Hyclate 100 mg PO 10/18/18 Escitalopram [Lexapro] 20 mg PO DAILY 10/18/18 Insulin Glargine,Hum.rec.anlog [Basaglar Margotpen U-100] 40 unit SUBQ DAILY 10/18/18 Metoprolol Tartrate 50 mg PO BID 10/18/18 Objective - Vital Signs/Intake & Output Reviewed Vital Signs: Yes Vital Signs: Vital Signs x48h Temp Pulse Pulse Resp BP BP Pulse Ox 10/19/18 12:08 36.4 C L 77 12 147/73 H 96 10/19/18 08:43 136/64 H 10/19/18 08:00 36.2 C L 85 12 136/64 H 97 10/19/18 07:53 84 18 10/19/18 04:48 36.4 C L 77 20 167/55 H 98 Intake & Output: Intake & Output 10/16/18 10/17/18 10/18/18 10/19/18 23:59 23:59 23:59 23:59 Intake Total 737 340 Output Total 1400 1400 Balance -663 -1060 - Objective General Appearance: positive: No acute distress, Alert. negative: Lethargic Eyes Bilateral: positive: Normal inspection, PERRL, No lid inflammation, Conjunctivae nml ENT: positive: ENT inspection nml, Pharynx nml, No signs of dehydration. negative: Purulent nasal drainage, Pharyngeal erythema, Oral lesions Neck: positive: Nml inspection, Thyroid nml, No JVD, Trachea midline. negative: Thyromegaly, Lymphadenopathy (R), Lymphadenopathy (L), Stiff neck, Carotid bruit, Swelling/bruising, Tracheal deviation Respiratory: positive: Chest non-tender, No respiratory distress, Breath sounds nml. negative: Wheezes, Rales, Rhonchi Cardiovascular: positive: Regular rate & rhythm, No murmur, No gallop. negative: Irregularly irregular, Extrasystoles, Tachycardia, Bradycardia, JVD present, Systolic murmur, Diastolic murmur Peripheral Pulses: 2+ Radial (R), 2+ Radial (L), 2+ Dorsalis pedis (R), 2+ Dorsalis pedis (L) Abdomen: positive: Non-tender, No organomegaly, Nml bowel sounds, No distention. negative: Tenderness, Guarding, Rebound Back: positive: Nml inspection. negative: CVA tenderness (R), CVA tenderness (L) Skin: positive: Color nml, No rash, Warm, Dry. negative: Cyanosis, Diaphoresis, Pallor Extremities: positive: Non-tender, Full ROM, Nml appearance. negative: Calf tenderness, Joint swelling, Edda's sign/cords Neurologic/Psychiatric: positive: Oriented x3, Sensation nml, Mood/affect nml. negative: Weakness, Sensory loss, Facial droop, Slurred/abnml speech, Depressed mood/affect - Lab Results Fish Bones: 10/19/18 06:36 10/19/18 06:36 Other Labs: Lab Results x24hrs 10/19/18 10/19/18 10/19/18 Range/Units 11:35 07:58 06:36 WBC (4.8-10.8) x10^3/uL RBC (4.20-5.40) 10^6/uL Hgb (12.0-16.0) g/dL Hct (37.0-47.0) % MCV (81.0-99.0) fL MCH (27.0-31.0) pg MCHC (32.0-36.0) g/dL RDW (12.0-15.0) % Plt Count (130-450) 10^3/uL MPV (7.9-10.8) fL Neut # (Auto) (1.5-6.6) 10^3/uL Lymph # (Auto) (1.5-3.5) 10^3/uL Shackelford # (Auto) (0.0-1.0) 10^3/uL Eos # (Auto) (0.0-0.7) 10^3/uL Baso # (Auto) (0.0-0.1) 10^3/uL Absolute Nucleated RBC x10^3/uL Nucleated RBC % /100WBC D-Dimer (200.0-255.0) ng/mL Sodium (135-145) mmol/L Potassium (3.5-5.0) mmol/L Chloride (101-111) mmol/L Carbon Dioxide (21-32) mmol/L Anion Gap (6-13) BUN (6-20) mg/dL Creatinine (0.4-1.0) mg/dL Estimated GFR (MDRD) (>89) Glucose (70-100) mg/dL POC Whole Bld Glucose 314 H 256 H (70 - 100) mg/dL Glycated Hemoglobin (4.6-6.2) % Estim Average Glucose (70-100) Calcium (8.5-10.3) mg/dL Magnesium (1.7-2.8) mg/dL Total Bilirubin (0.2-1.0) mg/dL AST (10-42) IU/L ALT (10-60) IU/L Alkaline Phosphatase (42-121) IU/L B-Natriuretic Peptide 265 H (5-100) pg/mL Total Protein (6.7-8.2) g/dL Albumin (3.2-5.5) g/dL Globulin (2.1-4.2) g/dL Albumin/Globulin Ratio (1.0-2.2) 10/19/18 10/19/18 10/18/18 Range/Units 06:36 06:36 20:10 WBC 7.9 (4.8-10.8) x10^3/uL RBC 4.09 L (4.20-5.40) 10^6/uL Hgb 13.2 (12.0-16.0) g/dL Hct 40.7 (37.0-47.0) % MCV 99.5 H (81.0-99.0) fL MCH 32.4 H (27.0-31.0) pg MCHC 32.6 (32.0-36.0) g/dL RDW 13.7 (12.0-15.0) % Plt Count 183 (130-450) 10^3/uL MPV 8.6 (7.9-10.8) fL Neut # (Auto) 5.7 (1.5-6.6) 10^3/uL Lymph # (Auto) 1.1 L (1.5-3.5) 10^3/uL Shackelford # (Auto) 0.8 (0.0-1.0) 10^3/uL Eos # (Auto) 0.2 (0.0-0.7) 10^3/uL Baso # (Auto) 0.1 (0.0-0.1) 10^3/uL Absolute Nucleated RBC 0.00 x10^3/uL Nucleated RBC % 0.0 /100WBC D-Dimer (200.0-255.0) ng/mL Sodium 136 (135-145) mmol/L Potassium 3.8 (3.5-5.0) mmol/L Chloride 100 L (101-111) mmol/L Carbon Dioxide 30 (21-32) mmol/L Anion Gap 6.0 (6-13) BUN 26 H (6-20) mg/dL Creatinine 1.2 H (0.4-1.0) mg/dL Estimated GFR (MDRD) 44 L (>89) Glucose 262 H (70-100) mg/dL POC Whole Bld Glucose 253 H (70 - 100) mg/dL Glycated Hemoglobin (4.6-6.2) % Estim Average Glucose (70-100) Calcium 8.4 L (8.5-10.3) mg/dL Magnesium 1.7 (1.7-2.8) mg/dL Total Bilirubin 1.0 (0.2-1.0) mg/dL AST 14 (10-42) IU/L ALT 17 (10-60) IU/L Alkaline Phosphatase 71 (42-121) IU/L B-Natriuretic Peptide (5-100) pg/mL Total Protein 5.9 L (6.7-8.2) g/dL Albumin 3.4 (3.2-5.5) g/dL Globulin 2.5 (2.1-4.2) g/dL Albumin/Globulin Ratio 1.4 (1.0-2.2) 10/18/18 10/18/18 10/18/18 Range/Units 16:47 15:20 15:20 WBC (4.8-10.8) x10^3/uL RBC (4.20-5.40) 10^6/uL Hgb (12.0-16.0) g/dL Hct (37.0-47.0) % MCV (81.0-99.0) fL MCH (27.0-31.0) pg MCHC (32.0-36.0) g/dL RDW (12.0-15.0) % Plt Count (130-450) 10^3/uL MPV (7.9-10.8) fL Neut # (Auto) (1.5-6.6) 10^3/uL Lymph # (Auto) (1.5-3.5) 10^3/uL Shackelford # (Auto) (0.0-1.0) 10^3/uL Eos # (Auto) (0.0-0.7) 10^3/uL Baso # (Auto) (0.0-0.1) 10^3/uL Absolute Nucleated RBC x10^3/uL Nucleated RBC % /100WBC D-Dimer 224.2 (200.0-255.0) ng/mL Sodium (135-145) mmol/L Potassium (3.5-5.0) mmol/L Chloride (101-111) mmol/L Carbon Dioxide (21-32) mmol/L Anion Gap (6-13) BUN (6-20) mg/dL Creatinine (0.4-1.0) mg/dL Estimated GFR (MDRD) (>89) Glucose (70-100) mg/dL POC Whole Bld Glucose 360 H (70 - 100) mg/dL Glycated Hemoglobin 9.7 H (4.6-6.2) % Estim Average Glucose 232 H (70-100) Calcium (8.5-10.3) mg/dL Magnesium (1.7-2.8) mg/dL Total Bilirubin (0.2-1.0) mg/dL AST (10-42) IU/L ALT (10-60) IU/L Alkaline Phosphatase (42-121) IU/L B-Natriuretic Peptide (5-100) pg/mL Total Protein (6.7-8.2) g/dL Albumin (3.2-5.5) g/dL Globulin (2.1-4.2) g/dL Albumin/Globulin Ratio (1.0-2.2) ABX Reporting Has patient been on IV antibiotics over the past 48 hours?: No Sepsis Event Note (H) - Evaluation Current Stage of Sepsis: Ruled out Assessment/Plan - Problem List (1) CHF exacerbation Impression: 10/19/ pt feel her breath is much better, BNP is down to 26o from 460. continue lasix and lab monitor pt did not take her lasix for around 2 months per pt state. CXR reveals increase pulmonary edema. pt present SOB for weeks start Lasix 40mg IV bid ECHO test lab, tele, and vital monitor (2) Pneumonia Conclusion/Plan: 10/19 WBC is normal now, continue antibiotics of Rocephin and Azith CXR reveal pneumonia, present cough and SOB. but no fever, chill, WBC is 10.8 treat with antibiotics, Azith and rocephin vital monitor (3) DM2 (diabetes mellitus, type 2) with hyperglycemia Conclusion/Plan: 10/19, A1C is 9.7, not well controlled. Lantus 40 unit at morning but glucose is still over 300, add additional 5 units of Novelog, continue monitor, may need more Lantus upper slide scan to moderate to high scale. un-controlled DM2 with over 300 glucose will check A1C resume home Lantus start slide scale once Novelog 8unit lab monitor start hypoglycemia protocol (4) HTN (hypertension) Conclusion/Plan: stable slight BP in ER, will resume home meds vital monitor (5) CKD (chronic kidney disease) stage 3, GFR 30-59 ml/min Conclusion/Plan: 10/19 stable, continue hydration. lab monitor stable, keep hydration, continue lab monitor (7) Atrial fibrillation Conclusion/Plan: discuss with pt, pt state she had too many falls, her PCP knew this, and she refused to have any more blood thinner. pt has Afib but only with Aspirin. CHADS score is 3, will discuss with pt if start on new blood thinner, anticoagulation (8) Medical non-compliance Conclusion/Plan: pt did not take her home Lasix for about two months per pt report. consult for pt for her medical non-compliance (7) Atrial fibrillation Qualifiers: Atrial fibrillation type: unspecified Qualified Code(s): I48.91 - Unspecified atrial fibrillation
[2018-10-19] MEDS ORDERED: INSULIN ASPART 300 UNIT/3 ML PEN SUBQ ONE (12:36)
[2018-10-19] MEDS: SODIUM CHLORIDE FLUSH 0.9% 10 ML SYRINGE IVP PRN (15:02)
[2018-10-19] MEDS: cloNIDine 0.1 MG TABLET PO SCH (20:34)
[2018-10-19] MEDS: ACETAMINOPHEN 500 MG TABLET PO PRN (20:34)
[2018-10-19] MEDS: ATORVASTATIN 40 MG TABLET PO SCH (20:34)
[2018-10-20] MEDS: SODIUM CHLORIDE FLUSH 0.9% 10 ML SYRINGE IVP SCH ×2 (00:31→07:02)
[2018-10-20] MEDS: ALBUTEROL NEB 2.5 MG/3 ML INH SCH ×2 (05:53→07:45)
[2018-10-20 06:07] LABS: BASOPHILS # (AUTO) 0.1 10^3/uL (0.0-0.1); BASOPHILS % (AUTO) 0.8 %; EOSINOPHILS # (AUTO) 0.3 10^3/uL (0.0-0.7); HGB - HEMOGLOBIN 13.6 g/dL (12.0-16.0); LYMPHOCYTES % (AUTO) 15.7 %; MEAN CORPUSCULAR HEMOGLOBIN 32.1 pg (27.0-31.0); MEAN CORPUSCULAR HGB CONC 32.5 g/dL (32.0-36.0); MEAN CORPUSCULAR VOLUME 98.7 fL (81.0-99.0); MEAN PLATELET VOLUME 8.6 fL (7.9-10.8); MONOCYTES # (AUTO) 0.7 10^3/uL (0.0-1.0); MONOCYTES % (AUTO) 10.5 %; NEUTROPHILS # (AUTO) 4.5 10^3/uL (1.5-6.6); PLT - PLATELET COUNT 196 10^3/uL (130-450); RED BLOOD COUNT 4.23 10^6/uL (4.20-5.40); RED CELL DISTRIBUTION WIDTH 13.6 % (12.0-15.0); WHITE BLOOD COUNT 6.6 x10^3/uL (4.8-10.8)
[2018-10-20 06:16] LABS: ALBUMIN/GLOBULIN RATIO 1.2 (1.0-2.2); BILIRUBIN,TOTAL 0.8 mg/dL (0.2-1.0); CALCIUM 8.6 mg/dL (8.5-10.3); CREATININE 1.2 mg/dL (0.4-1.0); TOTAL PROTEIN 5.6 g/dL (6.7-8.2)
[2018-10-20] MEDS: FUROSEMIDE 40 MG/4 ML VIAL IVP SCH (07:01)
[2018-10-20] MEDS: SODIUM CHLORIDE FLUSH 0.9% 10 ML SYRINGE IVP PRN (07:02)
[2018-10-20 08:22] VITALS: BP 153/85
--- NOTE | 2018-10-20 09:13 | Discharge Plan ---
Discharge Plan Disposition: Home, Self Care Condition: Poor Prescriptions: Albuterol Sulfate [Proair Hfa Inhaler] 1 - 2 puffs INH Q4H PRN #1 inhaler PRN Reason: Shortness Of Air/Wheezing Azithromycin [Zithromax] 250 mg PO DAILY #4 tablet Diet: Diabetic Activity Restrictions: Activity as Tolerated Shower Restrictions: No (fall precaution, caregiver closely monitor) Instruction Topics: Heart Failure, Pneumonia, Azithromycin tablets, Albuterol inhalation aerosol, Furosemide tablets, Potassium Additional Instructions or Follow Up instructions: you may followup your PCP in one week. You are admitted for fluid retention with shortness of breath and pneumonia. After treatment, you feel much better, BNP number went down, you are prescribed antibiotics to finish the treatment course, you are also prescribed low dosage Lasix for prevention of fluid retention. Discussed with all medication effects and side effects, please precaution of falls. Should your symptoms return or worsen, you may present ER or call 911 for help No Smoking: If you smoke, Please STOP! Call for help. Follow-up with: Camden Domingo DO [Primary Care Provider] -
[2018-10-20] MEDS: ENOXAPARIN 40 MG/0.4 ML SYRINGE SUBQ SCH (09:54)
[2018-10-20] MEDS: cefTRIAXone 1 GM in SODIUM CHLORIDE 0.9% MINIBAG 100 ML IV SCH (09:54)
[2018-10-20] MEDS: ASPIRIN CHEW 81 MG TABLET PO SCH (09:55)
[2018-10-20] MEDS: LOSARTAN 50 MG TABLET PO SCH (09:55)
[2018-10-20] MEDS: LORATADINE 10 MG TABLET PO SCH (09:55)
[2018-10-20] MEDS: POLYETHYLENE GLYCOL 3350 17 GM PACKET PO SCH (09:55)
[2018-10-20] MEDS: FAMOTIDINE 20 MG TABLET PO SCH (09:56)
[2018-10-20] MEDS: AZITHROMYCIN 250 MG TABLET PO SCH (09:56)
[2018-10-20] MEDS: ESCITALOPRAM 10 MG TABLET PO SCH (09:56)
[2018-10-20] MEDS: METOPROLOL TARTRATE 25 MG TABLET PO SCH (09:56)
--- NOTE | 2018-10-20 10:00 | XRAY Report ---
Reason: SOB Procedure Date: 10/20/2018 Accession Number: [id number] / [id number] Procedure: XR - Chest 1 View X-Ray CPT Code: 44457 FULL RESULT: EXAM: CHEST RADIOGRAPHY EXAM DATE: 10/20/2018 08:57 AM. CLINICAL HISTORY: Shortness of breath. COMPARISON: Chest 1 view 10/18/2018 11:31 AM. TECHNIQUE: 1 view. FINDINGS: Low lung volumes, unchanged from prior. Lungs/Pleura: No new focal opacities evident. No pleural effusion. No pneumothorax. Mediastinum: Within exam limitations, the cardiomediastinal contour is stable including aortic arch calcification and apparent mild cardiomegaly which is exacerbated by AP technique and low lung volumes. Other: None. IMPRESSION: Stable interval exam. RADIA
[2018-10-20] MEDS: INSULIN ASPART 300 UNIT/3 ML PEN SUBQ SCH (10:03)
[2018-10-20] MEDS: INSULIN GLARGINE 300 UNIT/3 ML PEN SUBQ SCH (10:04)
--- NOTE | 2018-10-20 10:10 | DISCHARGE SUMMARY ---
Discharge Summary Discharge Date: 10/20/18 Discharging Provider: ROUSE Primary Care Provider: Camden Richards Condition at Discharge: Poor Discharge Disposition: 01 Home, Self Care Discharge Facility Name: home - DIAGNOSES Admission Diagnoses: (1) CHF exacerbation (2) Pneumonia (3) DM2 (diabetes mellitus, type 2) (4) HTN (hypertension) (5) CKD (chronic kidney disease) stage 3, GFR 30-59 ml/min (6) Atrial fibrillation (7) Medical non-compliance Discharge Diagnoses with Status of Each Condition: 1) CHF exacerbation stable, BNP is down to 160 from 460. pt feel much better, no SOB. she request to be d/c to home today. Pt is prescribed 20mg Lasix with 10 meq Potassium. (2) Pneumonia WBC is normal. 96% sats on room air when I assess pt with nurse Bred. pt is prescribed Azithyromycin to continue antibiotics course (3) DM2 (diabetes mellitus, type 2) stable, continue home regimen, followup PCP (4) HTN (hypertension) stable (5) CKD (chronic kidney disease) stage 3, GFR 30-59 ml/min stable (6) Atrial fibrillation stable. discussed with pt if add anticoagulation/blood thinner for pt. pt refused. she state she has frequent falls. (7) Medical non-compliance consult with pt, pt state she will compliance her medications. - HPI History of Present Illness: The patient is a 73-year-old female with a past medical history significant for insulin-dependent diabetes, hypertension, hyperlipidemia, CKD, Afib, morbid obesity, hypothyroidism, diastolic heart failure, depression and recent diagnosis of COPD, who present ER complain of increased shortness of breath. Pt report she had a gradual onset of dyspnea for recent about two weeks. She also report she had dry cough. She went to her PCP three days ago, had a chest x-ray which did not show significant infiltrates, she was started on Doxycycline. It seems no much improvement since she had this treatment. She felt very shortness of breath this morning. She report she stopped to take her Lasix for about two months, which was prescribed 60 mg daily, because she was not happy she went to go to bath for so many times. She report new onset of headache as well today. She denies fever, chill, chest pain, abdominal pain, nausea, vomiting, diarrhea, dysuria, vision changes. Her CXR indicated possible pneumonia with increase of pulmonary edema. her Lab test today reveals hyperglycemia and persistent chronic renal disease. Today Pt is afebrile, slight elevated blood pressure, hypoxia 86% sats on room air, heart rate is 79, respiratory rate is 21. Pt is admitted for further evaluation and treatment. - HOSPITAL COURSE Hospital Course: pt was admitted for fluid retention and pneumonia. Pt was treated with diuretics and antibiotics. Pt feel her symptoms is much improved and request to be d/c home today. Her BNP is down to 160 from 460. Pt has 96% sats on room air. pt has no SOB after treatment. WBC is normal, no fever/chill. Pt is prescribed Azit hyromycin for continue treatment course. - ALLERGIES Allergies/Adverse Reactions: Allergies Allergy/AdvReac Type Severity Reaction Status Date / Time Sulfa (Sulfonamide AdvReac Intermediate Edema Verified 10/18/18 10:52 Antibiotics) lisinopril AdvReac Itching Verified 10/18/18 10:52 chest nuts Allergy Anaphylaxis Uncoded 10/18/18 10:52 - MEDICATIONS Home Medications: Ambulatory Orders Medication Instructions Recorded Confirmed cloNIDine HCl [Clonidine HCl] 0.1 mg PO QPM 10/12/13 10/18/18 Aspirin Chewable [St Sami 81 mg PO DAILY 03/30/14 10/18/18 Aspirin] Bisacodyl [Dulcolax] 10 mg PO DAILY PRN 03/30/14 10/18/18 Loratadine [Claritin] 10 mg PO DAILY 03/30/14 10/18/18 Triamcinolone Acetonide 0.1 - 0.5 mg TOP DAILY PRN 03/30/14 10/18/18 Acetaminophen [Tylenol Extra 2 tab PO Q8HR PRN 07/17/14 10/18/18 Strength] Atorvastatin Calcium 80 mg PO QPM 05/22/17 10/18/18 Docusate Sodium 250Mg Capsule 250 mg PO BID PRN 05/22/17 10/18/18 [Colace 250Mg Capsule] Lorazepam [Ativan] 1 mg PO QPM 05/22/17 10/18/18 Losartan Potassium [Cozaar] 100 mg PO DAILY 05/22/17 10/18/18 Doxycycline Hyclate 100 mg PO 10/18/18 Escitalopram [Lexapro] 20 mg PO DAILY 10/18/18 10/18/18 Insulin Glargine,Hum.rec.anlog 40 unit SUBQ DAILY 10/18/18 10/18/18 [Mayraaglkaveh Carcamo U-100] Metoprolol Tartrate 50 mg PO BID 10/18/18 10/18/18 Albuterol Sulfate [Proair Hfa 1 - 2 puffs INH Q4H PRN #1 inhaler 10/20/18 Inhaler] Azithromycin [Zithromax] 250 mg PO DAILY #4 tablet 10/20/18 Furosemide [Lasix] 20 mg PO DAILY #10 tablet 10/20/18 Potassium Chloride 10 meq PO DAILY #10 tablet.er 10/20/18 - PHYSICAL EXAM AT DISCHARGE General Appearance: positive: No acute distress, Alert. negative: Lethargic Eyes Bilateral: positive: Normal inspection, PERRL, No lid inflammation, Conjunctivae nml ENT: positive: ENT inspection nml, Pharynx nml, No signs of dehydration. negative: Purulent nasal drainage, Pharyngeal erythema, Oral lesions Neck: positive: Nml inspection, Thyroid nml, No JVD, Trachea midline. negative: Thyromegaly, Lymphadenopathy (R), Lymphadenopathy (L), Stiff neck, Swelling/bruising, Tracheal deviation Respiratory: positive: Chest non-tender, No respiratory distress, Breath sounds nml. negative: Wheezes, Rales, Rhonchi Cardiovascular: positive: Regular rate & rhythm, No murmur, No gallop. negative: Irregularly irregular, Extrasystoles, Tachycardia, Bradycardia, Syst olic murmur, Diastolic murmur Peripheral Pulses: positive: 2+ Abdomen: positive: Non-tender, No organomegaly, Nml bowel sounds, No distention. negative: Tenderness, Guarding, Rebound Back: positive: Nml inspection. negative: CVA tenderness (R), CVA tenderness (L) Skin: positive: Color nml, No rash, Warm, Dry. negative: Cyanosis, Diaphoresis, Pallor Extremities: positive: Non-tender, Full ROM, Nml appearance. negative: Calf tenderness, Joint swelling, Edda's sign/cords Neurologic/Psychiatric: positive: Oriented x3, Sensation nml, Mood/affect nml. negative: Weakness, Sensory loss, Facial droop, Slurred/abnml speech, Depressed mood/affect - LABS Result Diagrams: 10/20/18 05:36 10/20/18 05:36 - SEPSIS Current Stage of Sepsis: Ruled out - FOLLOW UP Follow Up: you may followup your PCP in one week. You are admitted for fluid retention with shortness of breath and pneumonia. After treatment, you feel much better, BNP number went down, you are prescribed antibiotics to finish the treatment course, you are also prescribed low dosage Lasix for prevention of fluid retention. Discussed with all medication effects and side effects, please precaution of falls. Should your symptoms return or worsen, you may present ER or call 911 for help - TIME SPENT Time Spent in Discharge (Minutes): 55
[2018-10-20] MEDS ORDERED: IPRATROPIUM/ALBUTEROL 3 ML NEB INH PRN (11:28)
== END 2018-10-20 13:03 | disposition home or self-care (01) | DRG 291 ==
LOC: ED 10:38 → MS2 13:48
PROVIDERS: ADMIT Nurse Practitioner Gerontology; ATTEND Nurse Practitioner Gerontology
DX: J44.1 Chronic obstructive pulmonary disease with (acute) exacerbation (principal); J18.1 Lobar pneumonia, unspecified organism; I13.0 Hypertensive heart and chronic kidney disease with heart failure and stage 1 through stage 4 chronic kidney disease, or unspecified chronic kidney disease; I11.0 Hypertensive heart disease with heart failure; I50.9 Heart failure, unspecified; J18.9 Pneumonia, unspecified organism; Z87.01 Personal history of pneumonia (recurrent); I50.33 Acute on chronic diastolic (congestive) heart failure; J44.0 Chronic obstructive pulmonary disease with (acute) lower respiratory infection; T50.1X6A Underdosing of loop [high-ceiling] diuretics, initial encounter; Z91.128 Patient's intentional underdosing of medication regimen for other reason; E11.22 Type 2 diabetes mellitus with diabetic chronic kidney disease; E11.65 Type 2 diabetes mellitus with hyperglycemia; E11.51 Type 2 diabetes mellitus with diabetic peripheral angiopathy without gangrene; N18.3 Chronic kidney disease, stage 3 (moderate); E66.01 Morbid (severe) obesity due to excess calories; I48.91 Unspecified atrial fibrillation; E78.5 Hyperlipidemia, unspecified; E03.9 Hypothyroidism, unspecified; F32.9 Major depressive disorder, single episode, unspecified; F41.0 Panic disorder [episodic paroxysmal anxiety]; Z66 Do not resuscitate; Z79.4 Long term (current) use of insulin; Z91.81 History of falling; Z68.36 Body mass index [BMI] 36.0-36.9, adult; Z86.14 Personal history of Methicillin resistant Staphylococcus aureus infection; Z87.891 Personal history of nicotine dependence; Z79.899 Other long term (current) drug therapy; Z79.82 Long term (current) use of aspirin
CPT/HCPCS: 36415; 70450; 71045; 80053; 83036; 83690; 83735; 83880; 84443; 84484; 85025; 85379; 93005; 93306; 94640; 96365; 96375; 99284

== ENCOUNTER 2018-12-21 12:03 | Outpatient (CLI) | payer MEDICARE | END 2018-12-21 12:04 | disposition EMS.NT | LOC: EMS 12:03 | PROVIDERS: ATTEND Surgery | DX: R19.7 Diarrhea, unspecified (principal); E11.9 Type 2 diabetes mellitus without complications ==

== ENCOUNTER 2018-12-21 12:44 | Observation (INO) | payer MEDICARE ==
[2018-12-21 14:32] LABS: BASOPHILS % (AUTO) 0.2 %; EOSINOPHILS # (AUTO) 0.1 10^3/uL (0.0-0.7); EOSINOPHILS % (AUTO) 0.4 %; HGB - HEMOGLOBIN 17.7 g/dL (12.0-16.0); LYMPHOCYTES # (AUTO) 0.5 10^3/uL (1.5-3.5); LYMPHOCYTES % (AUTO) 3.2 %; MEAN CORPUSCULAR HEMOGLOBIN 32.3 pg (27.0-31.0); MEAN CORPUSCULAR HGB CONC 33.3 g/dL (32.0-36.0); MEAN PLATELET VOLUME 9.4 fL (7.9-10.8); MONOCYTES # (AUTO) 0.8 10^3/uL (0.0-1.0); MONOCYTES % (AUTO) 5.1 %; NEUTROPHILS # (AUTO) 14.6 10^3/uL (1.5-6.6); NEUTROPHILS % (AUTO) 91.1 %; PLT - PLATELET COUNT 237 10^3/uL (130-450); RED BLOOD COUNT 5.46 10^6/uL (4.20-5.40); RED CELL DISTRIBUTION WIDTH 12.9 % (12.0-15.0); WHITE BLOOD COUNT 16.1 x10^3/uL (4.8-10.8)
[2018-12-21 14:42] LABS: INR 1.1 (0.8-1.2); PT - PROTHROMBIN TIME 11.8 secs (9.9-12.6)
[2018-12-21] MEDS ORDERED: INSULIN REGULAR HUMAN 100 UNIT/1 ML 10 ML MDV IVP STA ×2 (14:43→14:55)
[2018-12-21] MEDS ORDERED: SODIUM CHLORIDE 0.9% 1,000 ML IV ONE ×2 (14:43→15:27)
[2018-12-21 14:47] LABS: VBG PCO2 53.5 mmHg (41-51); VBG PH 7.345 (7.31-7.41)
[2018-12-21 14:48] LABS: VBG BASE EXCESS 1.4 mmol/L (-2 - +2); VBG PO2 28.5 mmHg (25-47); VBG TOTAL CO2 30.2 mmol/L (24-29)
[2018-12-21 14:51] LABS: ALBUMIN 3.4 g/dL (3.2-5.5); ALBUMIN/GLOBULIN RATIO 1.3 (1.0-2.2); ALKALINE PHOSPHATASE 88 IU/L (42-121); ALT ALANINE AMINOTRANSFERASE 16 IU/L (10-60); AST ASPARTATE AMINOTRANSFERASE 20 IU/L (10-42); BILIRUBIN,TOTAL 1.3 mg/dL (0.2-1.0); BUN - BLOOD UREA NITROGEN 23 mg/dL (6-20); CALCIUM 8.9 mg/dL (8.5-10.3); CARBON DIOXIDE - CO2 28 mmol/L (21-32); CHLORIDE 94 mmol/L (101-111); CK- CREATINE KINASE 77 IU/L (22-269); CREATININE 1.3 mg/dL (0.4-1.0); GFR - MDRD 40 (>89); LIPASE 23 U/L (22-51); SODIUM 134 mmol/L (135-145); TOTAL PROTEIN 6.1 g/dL (6.7-8.2)
[2018-12-21 14:52] LABS: GLUCOSE 537 mg/dL (70-100); KETONES, SERUM (ACETEST) SMALL (NEGATIVE)
--- NOTE | 2018-12-21 15:19 | XRAY Report ---
Reason: cp Procedure Date: 12/21/2018 Accession Number: [id number] / [id number] Procedure: XR - Chest 2 View X-Ray CPT Code: 98595 FULL RESULT: EXAM: CHEST RADIOGRAPHY EXAM DATE: 12/21/2018 02:51 PM. CLINICAL HISTORY: Chest pain. Confusion. Altered mental status. COMPARISON: CHEST 1 VIEW 10/20/2018 8:37 AM CHEST 1 VIEW 10/18/2018 11:31 AM CHEST 2 VIEW PA/LAT 10/16/2018 2:44 PM CHEST 1 VIEW 05/21/2017 7:25 PM. TECHNIQUE: 2 views. FINDINGS: Overlying grid artifact somewhat limits the frontal view. Lungs/Pleura: Slightly low volumes with central vascular crowding. No focal infiltrate, pleural effusion, or pneumothorax. Mediastinum: Normal cardiomediastinal contour. Atherosclerotic calcifications within the aortic arch, as before. Other: Degenerative changes within the spine. IMPRESSION: Central vascular crowding, which could of present artifact of slightly low lung volumes or central vascular congestion. RADIA
--- NOTE | 2018-12-21 15:27 | ED Physician Documentation ---
History of Present Illness - Stated complaint Stated Complaint: AMS/DIARHEA/HIGH BS - Chief complaint Chief Complaint: Abd Pain - Additonal information Additional information: 73-year-old female was brought in by family for evaluation of increasing weakness and not wanting to take care of herself. The patient feels generally unwell and has not been taking her medications as prescribed. The patient reports significant apathy regarding her well-being and is decided to not take her medications. The patient reports nausea with diarrhea.The patient has no focal area of abdominal pain, fevers, cough or chest pain. The family does report increasing confusional episodes. The patient denies headache, neck pain, focal motor weakness, speech changes or sensory changes. Symptoms per the family are described as severe. No triggering factors. No relieving factors. No other associated symptoms Review of Systems Constitutional: reports: Fatigue. denies: Fever Eyes: denies: Discharge Ears: denies: Ear pain Nose: reports: Congestion Throat: denies: Sore throat Cardiac: denies: Chest pain / pressure Respiratory: denies: Dyspnea GI: reports: Nausea, Diarrhea. denies: Abdominal Pain : denies: Dysuria Musculoskeletal: denies: Neck pain Neurologic: reports: Generalized weakness. denies: Focal weakness, Numbness, Syncope, Head injury Psychiatric: reports: Depressed, Anxiety PD PAST MEDICAL HISTORY - Past Medical History Cardiovascular: Congestive heart failure, Hypertension, High cholesterol, Peripheral Vascular Disease Respiratory: COPD, Pneumonia Neuro: None Endocrine/Autoimmune: Type 2 diabetes GI: Chronic constipation : None HEENT: Chronic vision loss, Chronic sinusitis, Other Psych: Depression, Anxiety, Panic attacks Musculoskeletal: None Derm: Eczema - Past Surgical History Past Surgical History: Yes General: Appendectomy, Bowel surgery, Other Ortho: Arthroscopic surgery, Carpal Tunnel surgery /[employer]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 [employer]: Dilation and currettage Cardiovascular: Cardiac catheterization, Other HEENT: Tonsil/Adenoidectomy - Present Medications Home Medications: Ambulatory Orders Medication Instructions Recorded Confirmed cloNIDine HCl [Clonidine HCl] 0.1 mg PO QPM 10/12/13 10/18/18 Aspirin Chewable [St Sami 81 mg PO DAILY 03/30/14 10/18/18 Aspirin] Bisacodyl [Dulcolax] 10 mg PO DAILY PRN 03/30/14 10/18/18 Loratadine [Claritin] 10 mg PO DAILY 03/30/14 10/18/18 Triamcinolone Acetonide 0.1 - 0.5 mg TOP DAILY PRN 03/30/14 10/18/18 Acetaminophen [Tylenol Extra 2 tab PO Q8HR PRN 07/17/14 10/18/18 Strength] Atorvastatin Calcium 80 mg PO QPM 05/22/17 10/18/18 Docusate Sodium 250Mg Capsule 250 mg PO BID PRN 05/22/17 10/18/18 [Colace 250Mg Capsule] Lorazepam [Ativan] 1 mg PO QPM 05/22/17 10/18/18 Losartan Potassium [Cozaar] 100 mg PO DAILY 05/22/17 10/18/18 Doxycycline Hyclate 100 mg PO 10/18/18 Escitalopram [Lexapro] 20 mg PO DAILY 10/18/18 10/18/18 Insulin Glargine,Hum.rec.anlog 40 unit SUBQ DAILY 10/18/18 10/18/18 [Basaglar Kwikpen U-100] Metoprolol Tartrate 50 mg PO BID 10/18/18 10/18/18 Albuterol Sulfate [Proair Hfa 1 - 2 puffs INH Q4H PRN #1 inhaler 10/20/18 Inhaler] Azithromycin [Zithromax] 250 mg PO DAILY #4 tablet 10/20/18 Furosemide [Lasix] 20 mg PO DAILY #10 tablet 10/20/18 Potassium Chloride 10 meq PO DAILY #10 tablet.er 10/20/18 - Allergies Allergies/Adverse Reactions: Allergies Allergy/AdvReac Type Severity Reaction Status Date / Time Sulfa (Sulfonamide AdvReac Intermediate Edema Verified 10/18/18 10:52 Antibiotics) lisinopril AdvReac Itching Verified 10/18/18 10:52 chest nuts Allergy Anaphylaxis Uncoded 10/18/18 10:52 - Social History Does the pt smoke?: No Smoking Status: Never smoker Does the pt drink ETOH?: No Does the pt have substance abuse?: No - Immunizations Immunizations are current?: Yes - POLST Patient has POLST: Yes POLST Status: DNR PD ED PE NORMAL - General General: Other (73-year-old female who appears to be in a poor state of health but is in no acute distress) - HEENT HEENT: Atraumatic, PERRL, EOMI, Ears normal - Neck Neck: Supple, no meningeal sign - Cardiac Cardiac: RRR, Strong equal pulses - Respiratory Respiratory: No respiratory distress - Abdomen Abdomen: Soft, Non tender - Derm Derm: Normal color - Extremities Extremities: No deformity - Neuro Neuro: Alert and oriented X 3, cut filer 2-12 intact, No motor deficit, Normal speech Results - Vitals Vitals: Vital Signs - 24 hr 12/21/18 12/21/18 12:56 15:11 Temperature 65.8 C H 36.5 C Heart Rate 50 L 70 Respiratory 20 16 Rate Blood Pressure 102/48 L 154/98 H O2 Saturation 93 96 Oxygen O2 Source Room air - Labs Labs: Laboratory Tests 12/21/18 12/21/18 12/21/18 13:24 14:25 14:25 WBC 16.1 H RBC 5.46 H Hgb 17.7 H Hct 53.0 H MCV 97.0 MCH 32.3 H MCHC 33.3 RDW 12.9 Plt Count 237 MPV 9.4 Neut # (Auto) 14.6 H Lymph # (Auto) 0.5 L Calhoun # (Auto) 0.8 Eos # (Auto) 0.1 Baso # (Auto) 0.0 Absolute Nucleated RBC 0.01 Nucleated RBC % 0.0 PT INR VBG pH VBG pCO2 VBG pO2 VBG HCO3 VBG Total CO2 VBG O2 Saturation VBG Base Excess Sodium 134 L Potassium 3.6 Chloride 94 L Carbon Dioxide 28 Anion Gap 12.0 BUN 23 H Creatinine 1.3 H Estimated GFR (MDRD) 40 L Glucose 537 H* POC Whole Bld Glucose 506 H* Calcium 8.9 Total Bilirubin 1.3 H AST 20 ALT 16 Alkaline Phosphatase 88 Total Creatine Kinase 77 Troponin I Total Protein 6.1 L Albumin 3.4 Globulin 2.7 Albumin/Globulin Ratio 1.3 Lipase 23 Serum Ketones SMALL H 12/21/18 12/21/18 12/21/18 14:25 14:25 14:35 WBC RBC Hgb Hct MCV MCH MCHC RDW Plt Count MPV Neut # (Auto) Lymph # (Auto) Calhoun # (Auto) Eos # (Auto) Baso # (Auto) Absolute Nucleated RBC Nucleated RBC % PT 11.8 INR 1.1 VBG pH 7.345 VBG pCO2 53.5 H VBG pO2 28.5 VBG HCO3 28.5 H VBG Total CO2 30.2 H VBG O2 Saturation 52.3 L VBG Base Excess 1.4 Sodium Potassium Chloride Carbon Dioxide Anion Gap BUN Creatinine Estimated GFR (MDRD) Glucose POC Whole Bld Glucose Calcium Total Bilirubin AST ALT Alkaline Phosphatase Total Creatine Kinase Troponin I < 0.04 Total Protein Albumin Globulin Albumin/Globulin Ratio Lipase Serum Ketones - Rads (name of study) CXR Radiology: Final report received, See rad report (IMPRESSION: Central vascular crowding, which could of present artifact of slightly low lung volumes or central vascular congestion. ) PD MEDICAL DECISION MAKING - ED course ED course: The patient appears to have significant hyperglycemia secondary to noncompliance, the patient is acutely symptomatic from these findings and will require admission to the hospital for ongoing treatment of these findings. The plan was discussed with the hospitalist Dr. Guadarrama who accepts the patient onto her service. The findings and plan were discussed with the patient who understands and agrees to the plan Departure - Departure Disposition: ED Place in Observation Clinical Impression: Hyperglycemia, Weakness, Dehydration Failure to thrive Qualifiers: Failure to thrive age range: in adult Qualified Code(s): R62.7 - Adult failure to thrive Diarrhea Qualifiers: Diarrhea type: unspecified type Qualified Code(s): R19.7 - Diarrhea, unspecified
[2018-12-21] MEDS ORDERED: ACETAMINOPHEN 325 MG TABLET PO PRN (16:55)
[2018-12-21] MEDS ORDERED: HYDROcod/ACETAM 5/325 MG TABLET PO PRN (16:55)
[2018-12-21] MEDS ORDERED: oxyCODONE 5 MG TABLET PO PRN (16:55)
[2018-12-21] MEDS ORDERED: ONDANSETRON 4 MG/2 ML VIAL IVP PRN (16:55)
[2018-12-21] MEDS ORDERED: SODIUM CHLORIDE FLUSH 0.9% 10 ML SYRINGE IVP PRN (16:55)
[2018-12-21] MEDS ORDERED: TEMAZEPAM 15 MG CAPSULE PO PRN (16:55)
[2018-12-21 17:01] LABS: GLUCOSE, URINE (UA) >=1000 mg/dL (NEGATIVE); KETONES,URINE (UA) 15 mg/dL (NEGATIVE); LEUKOCYTE ESTERASE, URINE SMALL (NEGATIVE); NITRITE,URINE NEGATIVE (NEGATIVE); OCCULT BLOOD,URINE TRACE-INTA (NEGATIVE); PH,URINE 5.5 PH (5.0-7.5); PROTEIN,URINE 100 mg/dL (NEGATIVE); UROBILINOGEN,URINE 0.2 (NORMAL) E.U./dL (NORMAL)
--- NOTE | 2018-12-21 17:03 | HISTORY & PHYSICAL EXAMINATION ---
Chief Complaint - Chief Complaint Chief Complaint: confusion, falls, uncontrolled pain History of Present Illness - Admitted From Admitted From:: ED - History Obtained From Records Reviewed: yes History obtained from: chart review, patient, patient's daughter - History of Present Illness HPI Comment/Other: Nela Toribio is a 73-year old female with a past medical history of hypertension, hyperlipidemia, chronic atrial fibrillation, PVD, PAD, diastolic CHF NYHA class 3, LVH, pulmonary hypertension, dyspnea, COPD, MRSA infection of her chronic diabetic foot ulcers, diabetes mellitus type 2-insulin dependent, hypothyroidism, tremors, early Parkinson's disease, 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 The patient has been living with her daughter since September of 2018 and has frequent falls, hospitalizations, and generally doing poorly for the past few months. The patient's daughter, Lamar who is her POA states that her mother has been more confused lately, not sleeping, well, and has been profoundly weak. Lamar states that her is disabled and has short term memory loss, so has not been able to ensure that her mother takes all of her medications as prescribed. The patient complains of nausea, diarrhea and has not been able to care for her self. Labs show an elevated WBC count of 16.1, anemia with an H/H of 17.7/53, a low sodium of 134, a normal anion gap of 12, an elevated creatinine of 1.3, a glucose of 534, an elevated bili of 1.3, a PCO2 of 53.5, a bicarb of 28.5, a CO2 of 30.2 and a low O2 saturation of 52.3. On my exam, the patient was tearful and hopeless stating that she feels to be a burden to her family, and chooses not to continue treating any of her chronic illnesses. She states that the final straw was when she recently had to change insulin pens making the new ones very difficult to read. She states that with her tremors that have become worse, she does not have the strength to poke her fingers for blood sugar checks. Her daughter, Lamar is in agreement and they both wish for further medical care to help manage pain, and her symptoms. History - Past Medical History Cardiovascular: reports: Congestive heart failure, Hypertension, High cholesterol, Peripheral Vascular Disease, Atrial fibrillation, Murmur, Arrhythmia Respiratory: reports: COPD, Pneumonia, Shortness of breath Neuro: reports: TIA, Head injury (pseudo brain tumor), Headaches, Parkinson's, Peripheral neuropathy, Tremors Endocrine/Autoimmune: reports: Type 2 diabetes GI: reports: GERD, Chronic diarrhea, Chronic constipation : reports: Incontinence, Nocturia, Frequency HEENT: reports: Chronic vision loss, Chronic sinusitis, Chronic hearing loss, Other Psych: reports: Depression, Anxiety, Panic attacks, Post traumatic stress disorder Musculoskeletal: reports: Osteoarthritis, Fatigue, Chronic back pain Derm: reports: Eczema MRSA Hx?: Yes - Past Surgical History General: reports: Appendectomy, Bowel surgery, Other Ortho: reports: Arthroscopic surgery, Carpal Tunnel surgery /RN EMBEDDED: reports: Dilation and currettage Cardiovascular: reports: Cardiac catheterization, Other HEENT: reports: Tonsil/Adenoidectomy - Family & Social History Family History: Mother: , CVA/TIA, Diabetes, Type 1, Father: , CAD Family History Comment/Other: pt is living at [facility] with her daughter. She is window, she had one daughter. Living arrangement: At home Living Situation: With family Social History Notes: The patient has been twice. Her second of metastatic cancer 10/18/2013. 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 She worked at [employer] in [place], [employer] in [place], [place] and various hospitals in [place]. 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 Although the patient has no biological children she has a very close friend whom she calls her daughter and who is also her durable power of resource engineer. The patient has never been a heavy drinker. She is a remote history of smoking. She started the age of 18 and stopped approximately at the age of 28 and smoked one pack per day. She moved to [facility] in 1991. She currently lives with a dog and 2 cats. - Substance History Use: Uses substance without health or social issues: NONE Abuse: Recurrent use of substance despite neg consequences: NONE Dependence: Experiences withdrawal or developed tolerances: NONE - POLST Patient has POLST: Yes POLST Status: DNR Meds/Allgy - Home Medications Home Medications: Ambulatory Orders Medication Instructions Recorded Confirmed cloNIDine HCl [Clonidine HCl] 0.1 mg PO QPM 10/12/13 10/18/18 Aspirin Chewable [St Sami 81 mg PO DAILY 03/30/14 10/18/18 Aspirin] Bisacodyl [Dulcolax] 10 mg PO DAILY PRN 03/30/14 10/18/18 Loratadine [Claritin] 10 mg PO DAILY 03/30/14 10/18/18 Triamcinolone Acetonide 0.1 - 0.5 mg TOP DAILY PRN 03/30/14 10/18/18 Acetaminophen [Tylenol Extra 2 tab PO Q8HR PRN 07/17/14 10/18/18 Strength] Atorvastatin Calcium 80 mg PO QPM 05/22/17 10/18/18 Docusate Sodium 250Mg Capsule 250 mg PO BID PRN 05/22/17 10/18/18 [Colace 250Mg Capsule] Lorazepam [Ativan] 1 mg PO QPM 05/22/17 10/18/18 Losartan Potassium [Cozaar] 100 mg PO DAILY 05/22/17 10/18/18 Doxycycline Hyclate 100 mg PO 10/18/18 Escitalopram [Lexapro] 20 mg PO DAILY 10/18/18 10/18/18 Insulin Glargine,Hum.rec.anlog 40 unit SUBQ DAILY 10/18/18 10/18/18 [Basaglar Kwikpen U-100] Metoprolol Tartrate 50 mg PO BID 10/18/18 10/18/18 Albuterol Sulfate [Proair Hfa 1 - 2 puffs INH Q4H PRN #1 inhaler 10/20/18 Inhaler] Azithromycin [Zithromax] 250 mg PO DAILY #4 tablet 10/20/18 Furosemide [Lasix] 20 mg PO DAILY #10 tablet 10/20/18 Potassium Chloride 10 meq PO DAILY #10 tablet.er 10/20/18 - Allergies Allergies/Adverse Reactions: Allergies Allergy/AdvReac Type Severity Reaction Status Date / Time Sulfa (Sulfonamide AdvReac Intermediate Edema Verified 10/18/18 10:52 Antibiotics) lisinopril AdvReac Itching Verified 10/18/18 10:52 chest nuts Allergy Anaphylaxis Uncoded 10/18/18 10:52 Review of Systems - Constitutional Constitutional: reports: Fatigue, Chills, Weakness, Poor appetite, Weight loss - Eyes Eyes: reports: Blurred vision, Vision loss, Corrective lenses - Ears, Nose & Throat Ears, Nose & Throat: reports: Hearing loss, Postnasal drainage, Dental decay - Cardiovascular Cariovascular: reports: Palpitations, Lightheadedness, Exertional dyspnea, Decr. exercise tolerance, Orthopnea - Respiratory Respiratory: reports: Cough - Gastrointestinal Gastrointestinal: reports: Abdominal distention, Diarrhea, Change in bowel habits, Nausea, Reflux/heartburn, Bloating, Poor appetite - Genitourinary Genitourinary: reports: Dysuria, Urgency, Incontinence, Nocturia - Musculoskeletal Musculoskeletal: reports: Back pain, Muscle aches, Stiffness, Limited range of motion, Muscle weakness, Joint pain - Integumentary Integumentary: reports: Lesions, Dryness, Pigment changes - Neurological Neurological: reports: General weakness, Focal weakness, Headache, Dizziness, Numbness, Memory problems, Pre-existing deficit, Abnormal gait, Incoordination, Slurred speech - Psychiatric Psychiatric: reports: Depression, Anxiety - Endocrine Endocrine: reports: Intolerance to cold - Hematologic/Lymphatic Hematologic/Lymphatic: reports: Recurrent infections - All Other Systems All Other Systems: reports: Reviewed and negative Prior Level of Functionality: Lives with daughter, but several falls, AMS and general decline leading to this admission. Exam - Vital Signs Reviewed Vital Signs: Yes Vital Signs: Vital Signs x48h Temp Pulse Resp BP Pulse Ox 12/21/18 15:11 36.5 C 70 16 154/98 H 96 12/21/18 12:56 65.8 C H 50 L 20 102/48 L 93 - Physical Exam General Appearance: positive: Alert, Moderate distress, Anxious Eyes Bilateral: positive: PERRL, No lid inflammation ENT: positive: Pharyngeal erythema, Oral lesions, Dry mucous membranes Neck: positive: No JVD, Stiff neck Respiratory: positive: Chest non-tender, Rhonchi Cardiovascular: positive: Irregularly irregular, Systolic murmur, Decreased pulse(s) Peripheral Pulses: positive: 1+ Abdomen: positive: Non-tender, Guarding, Abnml bowel sounds Back: positive: Nml inspection Skin: positive: No rash, Warm, Dry, Pallor Extremities: positive: Non-tender, No pedal edema Neurologic/Psychiatric: positive: Oriented x3, CN's nml (2-12), Weakness, Sensory loss, Slurred/abnml speech, Depressed mood/affect, Other (tremors) Reflexes: Bicep (R): 2+, Bicep (L): 2+ Sepsis Event Note (H) - Evaluation Current Stage of Sepsis: Ruled out Conclusion/Plan - Problem List (1) Acute metabolic encephalopathy Conclusion/Plan: The patient states that for the past 1 month, her symptoms of confusion have be en getting worse. She admits to becoming easily disorientated during the day and forgets how to do things. Plan: Continue to monitor. (2) Hyperglycemia Conclusion/Plan: Glucose on arrival to the ED was elevated at 537. She was also found to have an elevated WBC count of 16.1. She states that she is no longer interested in treating her diabetes. Plan: Continue to treat pain and symptoms focused on comfort. (3) ROCK (acute kidney injury) Conclusion/Plan: The patient has a baseline creatinine of 1.1, that is now 1.3. This is likely a result of her acute diarrhea, leading to dehydration. Plan: Continue with comfort focused cares, monitor for mental status changes. (4) Diarrhea Conclusion/Plan: The patient has been having diarrhea for the past few days, which has added to her profound weakness and debilitated state. Plan: Lomotil for diarrhea control, palliative care in the morning. Qualifiers: Diarrhea type: unspecified type Qualified Code(s): R19.7 - Diarrhea, unspecified (5) Diabetes mellitus type 2 with complications, uncontrolled Conclusion/Plan: The patient states that she has been diabetic for at least the past ~30 years. She expresses frustration in switching to new insulin pens since her vision is very poor and her dexterity is profoundly altered due to her worsening tremors. Her blood sugar on arrival to the ED is 537. She was previously prescribed Lantus of 40 units daily, but since arriving in the ED would like to not treat her chronic illnesses and only wants pain control. Plan: No labs, no blood sugar checks, no insulin, regular diet. (6) Chronic pain Conclusion/Plan: The patient has multiple reasons for her chronic pain including peripheral neuropathy, PVD, PAD, and DJD of her spine. She is not prescribed any narcotics at home but admits to the use of CBD oils at home that has been helping with sleep and to lessen the tremors. Plan: Morphine for uncontrolled pain, palliative care in the AM. Qualifiers: Chronic pain type: other chronic pain Qualified Code(s): G89.29 - Other chronic pain (7) Degenerative joint disease of cervical and lumbar spine Conclusion/Plan: This condition is listed in her outside records and she complains of worsening back pain on admission. She is prescribed lorazepam at home and lately has been taking CBD oil to help with her chronic pain and to lessen her tremors. Plan: continue Lorazepam, offer morphine for pain or air hunger. (8) Atrial fibrillation Conclusion/Plan: The patient has had this for several years and is not on chronic anticoagulation due to frequent falls. She was rate controlled with metoprolol, but this has not been continued. Plan: Continue to monitor vital signs PRN. Qualifiers: Atrial fibrillation type: chronic Qualified Code(s): I48.2 - Chronic atrial fibrillation (9) Moderate to severe pulmonary hypertension Conclusion/Plan: The patient is prescribed lasix at home that is now on hold for this condition. Her last echo was in 10/2018 and showed an RVSP of 48 mmHg at rest showing elevated right heart pressures. On exam, she is found to have an enlarged abdominal girth. Plan: Offer lasix if fluid overload is apparent, hold med for now and monitor respiratory status. (10) COPD (chronic obstructive pulmonary disease) Conclusion/Plan: The patient is prescribed a pro-air inhaler at home that is continued here in a duo-neb form as needed for wheezing or shortness of breath. Plan: Continue to provide oxygen for SOB, or duo-nebs PRN. (11) Fall Conclusion/Plan: The patient states that due to her overwhelming tremors and profound weakness, she has been falling at home. She has 24 hour supervision, but is troubled by the fact that she cannot take care of her self. She became tearful while explaining this on admission. Plan: Fall precautions, possible PT consult if a baseline functioning is needed. Qualifiers: Encounter type: initial encounter Qualified Code(s): W19.XXXA - Unspecified fall, initial encounter - Lab Results Lab results reviewed: Yes [place]: 12/21/18 14:25 12/21/18 14:25 Core Measures - Anticipated LOS I expect patient to be DC'd or transferred within 96 hours.: Yes - DVT/VTE - Prophylaxis VTE/DVT Device ordered at admit?: No Not Ordered - Patient Reason: Refusal by patient VTE/DVT Prophylaxis med ordered at admit?: No Not Ordered - Patient Refusal: Refusal by patient - Stroke - Rehab Assessment Rehab services assessment to be ordered?: No Not Ordered - Patient Reason: Refusal by patient - AMI - Statin at Admit Aspirin Prescribed on Admit: No Not Ordered - Patient Reason: Refusal
[2018-12-21 17:10] LABS: BILIRUBIN,URINE NEGATIVE (NEGATIVE); CLARITY,URINE CLOUDY (CLEAR); ICTOTEST,URINE NEGATIVE
[2018-12-21 17:11] LABS: BACTERIA,URINE Many /HPF (None Seen); SQUAMOUS EPITHELIAL CELL,UR FEW Squamous (<= Few); WBC CLUMPS,URINE PRESENT
[2018-12-21 17:12] LABS: YEAST,URINE PRESENT
[2018-12-21] MEDS ORDERED: MORPHINE SOL 10 MG/0.5 ML SYRINGE PO PRN (17:44)
[2018-12-21] MEDS ORDERED: FAMOTIDINE 20 MG TABLET PO SCH (21:00)
[2018-12-21] MEDS: LORazepam 0.5 MG TABLET PO PRN (21:14)
[2018-12-21] MEDS: SODIUM CHLORIDE FLUSH 0.9% 10 ML SYRINGE IVP SCH (21:14)
[2018-12-22] MEDS: SODIUM CHLORIDE FLUSH 0.9% 10 ML SYRINGE IVP SCH ×3 (00:45→17:11)
[2018-12-22] MEDS: POLYETHYLENE GLYCOL 3350 17 GM PACKET PO SCH (07:30)
--- NOTE | 2018-12-22 08:31 | ADVANCE CARE PLANNING NOTE ---
Advance Care Planning - Date/Time Date: 12/21/17 Time: 18:00 - Purpose of encounter Text: To establish goals of care, and discuss quality of life rather than treating chronic illnesses. - Parties in attendance Parties in attendance: The patient-Nela Toribio, her daughter (friend)- Lamar who is her primary POA, her son-in-law Jorge Alberto, and myself-MADIHA Lam - Decisional capacity Decisional capacity of: The patient can elaborate on all of her chronic illness and understands fully that may be imminent if primarily her blood sugar remains untreated for this hospital stay. Her daughter and POALamar understands and agrees. - Subjective/Patient's story Subjective/Patient's story: The patient states that it has been a collaboration of many physical disabilities including increased confusion, increased tremors, the inability to walk safely, poor sleep patterns, poor appetite, dry mouth, diarrhea, uncontrolled pain and her visual impairment. She has many troublesome complaints but one recent stress was that her insulin syringes had changed styles and the new ones seem almost impossible for her to read. In addition her weakness and increased tremors make it almost impossible to check her sugars. She states this may seem simple to some people, but to her it was the last straw. This has created a sense of hopelessness and she believes enough is enough. She also spoke of how she really hates putting out her daughter, her son-in-law and their 2 children since moving in with them last September 2018. She thinks her increased care is too much of a burden to her family and wishes to no longer treat her chronic illnesses. She was reluctant in coming to the ED, fearing that the medical system may refuse this suggestion, but her symptoms, including weakness, tremors, confusion and falls led to her coming in. 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 The patient has been living with her daughter since September of 2018 and has frequent falls, hospitalizations, and generally doing poorly for the past few months. The patient's daughter, Lamar who is her POA states that her mother has been more confused lately, not sleeping, well, and has been profoundly weak. Lamar states that her is disabled and has short term memory loss, so has not been able to ensure that her mother takes all of her medications as prescribed. The patient complains of nausea, diarrhea and has not been able to care for her self. Labs show an elevated WBC count of 16.1, anemia with an H/H of 17.7/53, a low sodium of 134, a normal anion gap of 12, an elevated creatinine of 1.3, a glucose of 534, an elevated bili of 1.3, a PCO2 of 53.5, a bicarb of 28.5, a CO2 of 30.2 and a low O2 saturation of 52.3. On my exam, the patient was tearful and hopeless stating that she feels to be a burden to her family, and chooses not to continue treating any of her chronic illnesses. She states that the final straw was when she recently had to change insulin pens making the new ones very difficult to read. She states that with her tremors that have become worse, she does not have the strength to poke her fingers for blood sugar checks. Her daughter, Lamar is in agreement and they both wish for further medical care to help manage pain, and her symptoms. * A palliative care consult was made with plans for a meeting hopefully 12/22/18 or at the earliest convenience of all parties. - Goals of Care Goals of care determinations: There should be no additional testing or changes in condition that will determine the progressive end of life care. - Plan Plan: Palliative care consult Likely a Hospice consult Comfort based care including, oxygen, duo-nebs, morphine and lorazepam - Code Status Code Status: Do Not Attempt Resuscitation - Time Spent on Advance Care Planning Time spent on advance care plannin
--- NOTE | 2018-12-22 08:44 | PROVIDER PROGRESS NOTE ---
Subjective - Prog Note Date Prog Note Date: 12/22/18 Prog Note Time: 08:43 - Subjective Pt reports feeling: Improved Subjective: Nela complains of mild urinary pain caused by her recent abbott. She is at peace today after her long discussion with Ml Mott which they went over end of life cares. She states that she wishes she could move about on her own, although remains very weak. She denies any new symptoms overnight and states that she has been sleepy today. Current Medications - Current Medications Current Medications: Active Medications: Acetaminophen (Tylenol) 650 mg PO Q4HR PRN Hydrocodone Bitart/Acetaminophen ([place] 5/325) 1 tab PO Q4HR PRN Famotidine (Pepcid) 20 mg PO DAILY DEBBY Fluconazole (Diflucan) 100 mg PO DAILY DEBBY Lorazepam (Ativan) 0.5 mg PO Q6H PRN Morphine Sulfate (Roxanol) 5 mg PO Q2HR PRN Nystatin (Nystop) 1 applic TOP BID DEBBY Ondansetron HCl (Zofran Inj) 4 mg IVP Q6HR PRN Oxycodone HCl (Roxicodone) 5 mg PO Q4HR PRN Polyethylene Glycol (Miralax) 17 gm PO DAILY DEBBY Temazepam (Restoril) 15 mg PO QPM PRN cloNIDine HCl [Clonidine HCl] 0.1 mg PO QPM 10/12/13 Bisacodyl [Dulcolax] 10 mg PO DAILY PRN 03/30/14 Acetaminophen [Tylenol Extra Strength] 500 mg PO TID PRN 07/17/14 Atorvastatin Calcium 80 mg PO QPM 05/22/17 Docusate Sodium 250Mg Capsule [Colace 250Mg Capsule] 250 mg PO BID PRN 05/22/17 Lorazepam [Ativan] 1 mg PO QPM 05/22/17 Losartan Potassium [Cozaar] 100 mg PO DAILY 05/22/17 Escitalopram [Lexapro] 20 mg PO DAILY 10/18/18 Aspirin [Aspirin EC] 81 mg PO DAILY 12/22/18 Insulin Glargine [Lantus Solostar] 40 unit SQ DAILY 12/22/18 Insulin Lispro [Humalog Kwikpen U-100] 10 unit SUBQ TIDWM 12/22/18 Potassium Citrate [Potassium Citrate ER] 10 meq PO DAILY 12/22/18 Triamcinolone 0.1% Cream [Kenalog 0.1% Cream] 1 applic TOP DAILY PRN 12/22/18 Objective - Vital Signs/Intake & Output Reviewed Vital Signs: Yes Vital Signs: Vital Signs x48h Temp Pulse Resp BP Pulse Ox 12/22/18 08:11 36.9 C 97 18 160/88 H 93 12/22/18 00:50 92 93 Intake & Output: Intake & Output 12/19/18 12/20/18 12/21/18 12/22/18 23:59 23:59 23:59 23:59 Intake Total 2470 Output Total 0 Balance 2470 0 - Objective General Appearance: positive: No acute distress, Alert, Lethargic Eyes Bilateral: positive: PERRL ENT: positive: Pharyngeal erythema, Dry mucous membranes (less dry today) Neck: positive: No JVD Respiratory: positive: Chest non-tender, Rhonchi Cardiovascular: positive: No gallop, Irregularly irregular, Systolic murmur Peripheral Pulses: 1+ Radial (R), 1+ Radial (L) Abdomen: positive: Non-tender, Nml bowel sounds Back: positive: Nml inspection Skin: positive: No rash, Warm, Dry, Pallor Extremities: positive: Non-tender, Full ROM, No pedal edema Neurologic/Psychiatric: positive: Oriented x3, CN's nml (2-12), Weakness, Depr essed mood/affect Reflexes: Bicep (R): 2+, Bicep (L): 2+ - Lab Results Fish Bones: 12/21/18 14:25 12/21/18 14:25 Other Labs: Lab Results x24hrs 12/21/18 12/21/18 12/21/18 Range/Units 19:45 16:56 16:40 WBC (4.8-10.8) x10^3/uL RBC (4.20-5.40) 10^6/uL Hgb (12.0-16.0) g/dL Hct (37.0-47.0) % MCV (81.0-99.0) fL MCH (27.0-31.0) pg MCHC (32.0-36.0) g/dL RDW (12.0-15.0) % Plt Count (130-450) 10^3/uL MPV (7.9-10.8) fL Neut # (Auto) (1.5-6.6) 10^3/uL Lymph # (Auto) (1.5-3.5) 10^3/uL [place] # (Auto) (0.0-1.0) 10^3/uL Eos # (Auto) (0.0-0.7) 10^3/uL Baso # (Auto) (0.0-0.1) 10^3/uL Absolute Nucleated RBC x10^3/uL Nucleated RBC % /100WBC PT (9.9-12.6) secs INR (0.8-1.2) VBG pH (7.31-7.41) VBG pCO2 (41-51) mmHg VBG pO2 (25-47) mmHg VBG HCO3 (23-28) mmol/L VBG Total CO2 (24-29) mmol/L VBG O2 Saturation (60-80) % VBG Base Excess (-2 - +2) mmol/L Sodium (135-145) mmol/L Potassium (3.5-5.0) mmol/L Chloride (101-111) mmol/L Carbon Dioxide (21-32) mmol/L Anion Gap (6-13) BUN (6-20) mg/dL Creatinine (0.4-1.0) mg/dL Estimated GFR (MDRD) (>89) Glucose (70-100) mg/dL POC Whole Bld Glucose 230 H (70 - 100) mg/dL Calcium (8.5-10.3) mg/dL Total Bilirubin (0.2-1.0) mg/dL AST (10-42) IU/L ALT (10-60) IU/L Alkaline Phosphatase (42-121) IU/L Total Creatine Kinase (22-269) IU/L Troponin I (<0.49) ng/mL Total Protein (6.7-8.2) g/dL Albumin (3.2-5.5) g/dL Globulin (2.1-4.2) g/dL Albumin/Globulin Ratio (1.0-2.2) Lipase (22-51) U/L Urine Color YELLOW Urine Clarity CLOUDY (CLEAR) Urine pH 5.5 (5.0-7.5) PH Ur Specific [place] 1.020 (1.002-1.030) Urine Protein 100 H (NEGATIVE) mg/dL Urine Glucose (UA) >=1000 H (NEGATIVE) mg/dL Urine Ketones 15 H (NEGATIVE) mg/dL Urine Occult Blood TRACE-INTA (NEGATIVE) Urine Nitrite NEGATIVE (NEGATIVE) Urine Bilirubin NEGATIVE (NEGATIVE) Urine Urobilinogen 0.2 (NORMAL) (NORMAL) E.U./dL Ur Leukocyte Esterase SMALL H (NEGATIVE) Urine RBC 6-10 H (0-5) /HPF Urine WBC >25 H (0-5) /HPF Urine WBC Clumps PRESENT Ur Squamous Epith Cells FEW Squamous (<= Few) Urine Bacteria Many H (None Seen) /HPF Urine Yeast PRESENT Ur Microscopic Review INDICATED Urine Culture Comments INDICATED Nasal Screen MRSA (PCR) NEGATIVE (NEGATIVE) Serum Ketones (NEGATIVE) 12/21/18 12/21/18 12/21/18 Range/Units 14:35 14:25 14:25 WBC (4.8-10.8) x10^3/uL RBC (4.20-5.40) 10^6/uL Hgb (12.0-16.0) g/dL Hct (37.0-47.0) % MCV (81.0-99.0) fL MCH (27.0-31.0) pg MCHC (32.0-36.0) g/dL RDW (12.0-15.0) % Plt Count (130-450) 10^3/uL MPV (7.9-10.8) fL Neut # (Auto) (1.5-6.6) 10^3/uL Lymph # (Auto) (1.5-3.5) 10^3/uL [place] # (Auto) (0.0-1.0) 10^3/uL Eos # (Auto) (0.0-0.7) 10^3/uL Baso # (Auto) (0.0-0.1) 10^3/uL Absolute Nucleated RBC x10^3/uL Nucleated RBC % /100WBC PT 11.8 (9.9-12.6) secs INR 1.1 (0.8-1.2) VBG pH 7.345 (7.31-7.41) VBG pCO2 53.5 H (41-51) mmHg VBG pO2 28.5 (25-47) mmHg VBG HCO3 28.5 H (23-28) mmol/L VBG Total CO2 30.2 H (24-29) mmol/L VBG O2 Saturation 52.3 L (60-80) % VBG Base Excess 1.4 (-2 - +2) mmol/L Sodium (135-145) mmol/L Potassium (3.5-5.0) mmol/L Chloride (101-111) mmol/L Carbon Dioxide (21-32) mmol/L Anion Gap (6-13) BUN (6-20) mg/dL Creatinine (0.4-1.0) mg/dL Estimated GFR (MDRD) (>89) Glucose (70-100) mg/dL POC Whole Bld Glucose (70 - 100) mg/dL Calcium (8.5-10.3) mg/dL Total Bilirubin (0.2-1.0) mg/dL AST (10-42) IU/L ALT (10-60) IU/L Alkaline Phosphatase (42-121) IU/L Total Creatine Kinase (22-269) IU/L Troponin I < 0.04 (<0.49) ng/mL Total Protein (6.7-8.2) g/dL Albumin (3.2-5.5) g/dL Globulin (2.1-4.2) g/dL Albumin/Globulin Ratio (1.0-2.2) Lipase (22-51) U/L Urine Color Urine Clarity (CLEAR) Urine pH (5.0-7.5) PH Ur Specific [place] (1.002-1.030) Urine Protein (NEGATIVE) mg/dL Urine Glucose (UA) (NEGATIVE) mg/dL Urine Ketones (NEGATIVE) mg/dL Urine Occult Blood (NEGATIVE) Urine Nitrite (NEGATIVE) Urine Bilirubin (NEGATIVE) Urine Urobilinogen (NORMAL) E.U./dL Ur Leukocyte Esterase (NEGATIVE) Urine RBC (0-5) /HPF Urine WBC (0-5) /HPF Urine WBC Clumps Ur Squamous Epith Cells (<= Few) Urine Bacteria (None Seen) /HPF Urine Yeast Ur Microscopic Review Urine Culture Comments Nasal Screen MRSA (PCR) (NEGATIVE) Serum Ketones (NEGATIVE) 12/21/18 12/21/18 12/21/18 Range/Units 14:25 14:25 13:24 WBC 16.1 H (4.8-10.8) x10^3/uL RBC 5.46 H (4.20-5.40) 10^6/uL Hgb 17.7 H (12.0-16.0) g/dL Hct 53.0 H (37.0-47.0) % MCV 97.0 (81.0-99.0) fL MCH 32.3 H (27.0-31.0) pg MCHC 33.3 (32.0-36.0) g/dL RDW 12.9 (12.0-15.0) % Plt Count 237 (130-450) 10^3/uL MPV 9.4 (7.9-10.8) fL Neut # (Auto) 14.6 H (1.5-6.6) 10^3/uL Lymph # (Auto) 0.5 L (1.5-3.5) 10^3/uL [place] # (Auto) 0.8 (0.0-1.0) 10^3/uL Eos # (Auto) 0.1 (0.0-0.7) 10^3/uL Baso # (Auto) 0.0 (0.0-0.1) 10^3/uL Absolute Nucleated RBC 0.01 x10^3/uL Nucleated RBC % 0.0 /100WBC PT (9.9-12.6) secs INR (0.8-1.2) VBG pH (7.31-7.41) VBG pCO2 (41-51) mmHg VBG pO2 (25-47) mmHg VBG HCO3 (23-28) mmol/L VBG Total CO2 (24-29) mmol/L VBG O2 Saturation (60-80) % VBG Base Excess (-2 - +2) mmol/L Sodium 134 L (135-145) mmol/L Potassium 3.6 (3.5-5.0) mmol/L Chloride 94 L (101-111) mmol/L Carbon Dioxide 28 (21-32) mmol/L Anion Gap 12.0 (6-13) BUN 23 H (6-20) mg/dL Creatinine 1.3 H (0.4-1.0) mg/dL Estimated GFR (MDRD) 40 L (>89) Glucose 537 H* (70-100) mg/dL POC Whole Bld Glucose 506 H* (70 - 100) mg/dL Calcium 8.9 (8.5-10.3) mg/dL Total Bilirubin 1.3 H (0.2-1.0) mg/dL AST 20 (10-42) IU/L ALT 16 (10-60) IU/L Alkaline Phosphatase 88 (42-121) IU/L Total Creatine Kinase 77 (22-269) IU/L Troponin I (<0.49) ng/mL Total Protein 6.1 L (6.7-8.2) g/dL Albumin 3.4 (3.2-5.5) g/dL Globulin 2.7 (2.1-4.2) g/dL Albumin/Globulin Ratio 1.3 (1.0-2.2) Lipase 23 (22-51) U/L Urine Color Urine Clarity (CLEAR) Urine pH (5.0-7.5) PH Ur Specific [place] (1.002-1.030) Urine Protein (NEGATIVE) mg/dL Urine Glucose (UA) (NEGATIVE) mg/dL Urine Ketones (NEGATIVE) mg/dL Urine Occult Blood (NEGATIVE) Urine Nitrite (NEGATIVE) Urine Bilirubin (NEGATIVE) Urine Urobilinogen (NORMAL) E.U./dL Ur Leukocyte Esterase (NEGATIVE) Urine RBC (0-5) /HPF Urine WBC (0-5) /HPF Urine WBC Clumps Ur Squamous Epith Cells (<= Few) Urine Bacteria (None Seen) /HPF Urine Yeast Ur Microscopic Review Urine Culture Comments Nasal Screen MRSA (PCR) (NEGATIVE) Serum Ketones SMALL H (NEGATIVE) ABX Reporting Has patient been on IV antibiotics over the past 48 hours?: No Sepsis Event Note (H) - Evaluation Current Stage of Sepsis: Ruled out Assessment/Plan - Problem List (1) ROCK (acute kidney injury) Impression: The patient has a baseline creatinine of 1.1, that is now 1.3. This is likely a result of her acute diarrhea, leading to dehydration. Plan: Continue with comfort focused cares, monitor for mental status changes. (2) Acute metabolic encephalopathy Impression: The patient states that for the past 1 month, her symptoms of confusion have been getting worse. She admits to becoming easily disorientated during the day and forgets how to do things. Today, she is lucid and acutely aware of he surroundings. Plan: Continue to monitor. (3) Diarrhea Impression: The patient has been having diarrhea for the past few days, which has added to her profound weakness and debilitated state. This has slowed down today with only one BM charged. Plan: Lomotil for diarrhea control. Qualifiers: Diarrhea type: unspecified type Qualified Code(s): R19.7 - Diarrhea, unspecified (4) Hyperglycemia Impression: Glucose on arrival to the ED was elevated at 537. She was also found to have an elevated WBC count of 16.1. She states that she is no longer interested in treating her diabetes. Plan: Continue to treat pain and symptoms focused on comfort. (5) Weakness Impression: This is her primary complaint today and has been a deciding factor in her wish for comfort focused cares for this hospital stay. Plan: Continue comfort cares. (6) Chronic pain Impression: The patient has multiple reasons for her chronic pain including peripheral neuropathy, PVD, PAD, and DJD of her spine. She is not prescribed any narcotics at home but admits to the use of CBD oils at home that has been helping with sleep and to lessen the tremors. Plan: Morphine for uncontrolled pain. Qualifiers: Chronic pain type: other chronic pain Qualified Code(s): G89.29 - Other chronic pain (7) Degenerative joint disease of cervical and lumbar spine Impression: This condition is listed in her outside records and she complains of worsening back pain on admission. She is prescribed lorazepam at home and lately has been taking CBD oil to help with her chronic pain and to lessen her tremors. Plan: continue Lorazepam, offer morphine for pain or air hunger. (8) Diabetes mellitus type 2 with complications, uncontrolled Impression: The patient states that she has been diabetic for at least the past ~30 years. She expresses frustration in switching to new insulin pens since her vision is very poor and her dexterity is profoundly altered due to her worsening tremors. Her blood sugar on arrival to the ED is 537. She was previously prescribed Lantus of 40 units daily, but since arriving in the ED would like to not treat her chronic illnesses and only wants pain control. Plan: No labs, no blood sugar checks, no insulin, regular diet. (9) Fall Impression: The patient states that due to her overwhelming tremors and profound weakness, she has been falling at home. She has 24 hour supervision, but is troubled by the fact that she cannot take care of her self. She became tearful while explaining this on admission. Plan: Fall precautions, bedrest for now. Qualifiers: Encounter type: initial encounter Qualified Code(s): W19.XXXA - Unspecified fall, initial encounter (10) Moderate to severe pulmonary hypertension Impression: The patient is prescribed lasix at home that is now on hold for this condition. Her last echo was in 10/2018 and showed an RVSP of 48 mmHg at rest showing elevated right heart pressures. On exam, she is found to have an enlarged abdominal girth and today does not appear fluid overloaded and remains on oxygen. Plan: Offer lasix if fluid overload is apparent, hold med for now and monitor respiratory status. (11) End of life care Impression: Palliative care consulted today and we will proceed with comfort focused care. Plan: Home with Hospice on 12/23/18 after equipment gets delivered.
--- NOTE | 2018-12-22 11:45 | CONSULTATION NOTE ---
Palliative Care Consultation - Referral Referring Provider: Caridad CLEARY Time of Visit: 4239-0451 Referral setting: Hospitalized patient Referral Reason: Goals of Care/ Failure to Thrive - Information Sources Records reviewed: Previous records reviewed History/Review of Systems obtained from: Patient, Family ("daughter" DPALEXANDRE Moran and Jorge Alberto present) Exam limitations: No limitations - History of Present Illness Brief History of Present Illness: This is a 73-year-old woman who presents as a failure to thrive, she has had increasing health issues most specifically over the last several months. She was recently hospitalized in October with an exacerbation of her CHF and pneumonia. Per both the patient and her family, she is continued to struggle at home with increased back pain, increased shortness of breath, decreasing functional status, increased falls, recognizing her multiple comorbidities and perceived poor quality of life. Most acutely she has changed over the last couple weeks, with intermittent confusion, weakness, poorly controlled diabetes, most likely fairly poor medication compliance.Patient reports she has had long- term depression, denies any suicide ideation, does not feel like her request for refusing treatment is initiated out of her depression. She feels overall quite relieved, that she is able to refuse any further care, and would like to focus on comfort. She reports she recognizes she is getting progressively worse, and expects this to continue. She has had increased dependence, feels like she is constantly hurting, and tired of fighting. When asked patient's understanding regarding her current condition. She does report she understands that she is acutely ill, and refusing further treatment such as antibiotics and or insulin, she will continued to deteriorate, and this will lead to her . She understands that this could include increased discomfort, with sepsis, fever, and increased confusion. She has been a diabetic for 35-45 years, she understands that she will without managing her diabetes, and that this can be a source of discomfort as well. Her goal is to have a comfortable respectful , she is hoping with hospice support, that she will have a minimum of suffering and support for her family. She expressed that she does not feel manipulated into this decision, she feels like she has a ride to decide when she wants this to be over, she feels like she has had a great life and does understand many people care about her. In the context of her family Lamar and Jorge Alberto who are at the bedside, they concur patient is not suicidal, is not making the street decision out of treated depression, and that she has spoken ongoing about her ongoing poor quality of life and wanting to just focus on comfort and no further interventions. 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 Medical/Surgical History - Past Medical History Cardiovascular: reports: Congestive heart failure, Hypertension, High cholesterol, Peripheral Vascular Disease, Atrial fibrillation, Murmur, Arrhythmia Respiratory: reports: COPD, Pneumonia, Shortness of breath Neuro: TIA, Head injury (pseudo brain tumor), Headaches, Parkinson's, Peripheral neuropathy, Tremors Endocrine/Autoimmune: reports: Type 2 diabetes GI: reports: GERD, Chronic diarrhea, Chronic constipation : reports: Incontinence, Nocturia, Frequency HEENT: reports: Chronic vision loss, Chronic sinusitis, Chronic hearing loss, Other Psych: reports: Depression, Anxiety, Panic attacks, Post traumatic stress disorder Musculoskeletal: reports: Osteoarthritis, Fatigue, Chronic back pain Derm: reports: Eczema MRSA Hx?: Yes - Past Surgical History General: reports: Appendectomy, Bowel surgery, Other Ortho: reports: Arthroscopic surgery, Carpal Tunnel surgery /ARCHITECT: reports: Dilation and currettage Cardiovascular: reports: Cardiac catheterization, Other HEENT: reports: Tonsil/Adenoidectomy - Substance History Use: Uses substance without health or social issues: NONE Abuse: Recurrent use of substance despite neg consequences: NONE Dependence: Experiences withdrawal or developed tolerances: NONE Social History - Living Situation Living arrangement: At home Living Situation: With caregiver(s) (patient moved in with Lamar and Jorge Alberto 09/2018 when patient was no longer able to care for herself;) Support System: 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 Has taken care of her mother on hospice in the past, aware of hospice services and philosophy. She does no have any biological children of her own, calls Lamar her "daughter" and fells very close to her and made her her DPOA. Patient has two brothers, neither are involved in her care. Lamar herself works full-time at nights, she is a caregiver, so she has been for 20 years she does understand the consequences of the patient's choice and pa steff's expected decline. She does feel like she has some flexibility if needed, but will need some assistance in meeting patient's care needs. Lamar's is both physically and mentally with disability, he is present but will be only able to let me know if patient needs assistance, not provide physical care. Lamar's daughter who is 19 is also in the home. Family History - Family History Family History: Mother: , CVA/TIA, Father: , CAD Medications/Allergies - Medications Active Medication List: Active Medications Acetaminophen (Tylenol) 650 mg PO Q4HR PRN PRN Reason: Pain 1 to 4 Hydrocodone Bitart/Acetaminophen ([place] 5/325) 1 tab PO Q4HR PRN PRN Reason: Pain 5 to 7 Famotidine (Pepcid) 20 mg PO DAILY [facility] Fluconazole (Diflucan) 100 mg PO DAILY [facility] Lorazepam (Ativan) 0.5 mg PO Q6H PRN PRN Reason: Anxiety Last Admin: 12/21/18 21:14 Dose: 0.5 mg Morphine Sulfate (Roxanol) 5 mg PO Q2HR PRN PRN Reason: PAIN Nystatin (Nystop) 1 applic TOP BID [facility] Ondansetron HCl (Zofran Inj) 4 mg IVP Q6HR PRN PRN Reason: Nausea / Vomiting Oxycodone HCl (Roxicodone) 5 mg PO Q4HR PRN PRN Reason: Pain 5 to 7 Polyethylene Glycol (Miralax) 17 gm PO DAILY [facility] Last Admin: 12/22/18 07:30 Dose: Not Given Sodium Chloride (Normal Saline Flush 0.9%) 10 ml IVP PRN PRN PRN Reason: NEEDED PER PROVIDER ORDERS Sodium Chloride (Normal Saline Flush 0.9%) 10 ml IVP 0100,0900,1700 [facility] Last Admin: 12/22/18 11:09 Dose: 10 ml Temazepam (Restoril) 15 mg PO QPM PRN PRN Reason: Insomnia cloNIDine HCl [Clonidine HCl] 0.1 mg PO QPM 10/12/13 Bisacodyl [Dulcolax] 10 mg PO DAILY PRN 03/30/14 Loratadine [Claritin] 10 mg PO DAILY PRN 03/30/14 Acetaminophen [Tylenol Extra Strength] 500 mg PO TID PRN 07/17/14 Atorvastatin Calcium 80 mg PO QPM 05/22/17 Docusate Sodium 250Mg Capsule [Colace 250Mg Capsule] 250 mg PO BID PRN 05/22/17 Lorazepam [Ativan] 1 mg PO QPM 05/22/17 Losartan Potassium [Cozaar] 100 mg PO DAILY 05/22/17 Escitalopram [Lexapro] 20 mg PO DAILY 10/18/18 Metoprolol Tartrate 50 mg PO BID 10/18/18 Aspirin [Aspirin EC] 81 mg PO DAILY 12/22/18 Insulin Glargine [Lantus Solostar] 40 unit SQ DAILY 12/22/18 Potassium Citrate [Potassium Citrate ER] 10 meq PO DAILY 12/22/18 - Allergies Allergies/Adverse Reactions: Allergies Allergy/AdvReac Type Severity Reaction Status Date / Time Sulfa (Sulfonamide AdvReac Intermediate Edema Verified 10/18/18 10:52 Antibiotics) lisinopril AdvReac Itching Verified 10/18/18 10:52 chest nuts Allergy Anaphylaxis Uncoded 10/18/18 10:52 Review of Systems - Constitutional Constitutional: reports: Fatigue, Malaise (reports downward trend of health and strenght for two weeks). denies: Fever, Chills - Eyes Eyes: reports: Vision loss (worsening;) - Cardiovascular Cardiovascular: reports: Exertional dyspnea, Decr. exercise tolerance - Respiratory Respiratory: reports: SOB with exertion. denies: SOB at rest - Gastrointestinal Gastrointestinal: reports: Diarrhea (present for about 48 hours; inc. of stool; intermittent in past), Poor appetite, Early satiety. denies: Nausea - Genitourinary Genitourinary: denies: Dysuria - Musculoskeletal Musculoskeletal: reports: Back pain (escalating and limiting back pain for a couple of months; has refused medications per Lamar), Muscle aches, Stiffness, Limited range of motion, Muscle weakness, Other (frequent falls these have been worsening since November; unable to transfer self or ambulate over the week;) - Integumentary Integumentary: reports: Dryness, Other (chronic bilateral foot wounds PVD/DM ulcers) - Neurological Neurological: reports: General weakness, Memory problems (finding concentrating more difficult; STM issues; worsening word finding; finds this very distressivng). denies: Seizures - Psychiatric Psychiatric: reports: Depression (on lexapro; has had concerns related to worsening qualilty of life for several months;). denies: Suicidal - Endocrine Endocrine: reports: Diabetes type 2 (history of diabetes greater than 30 years; has had poor control and compliance;) - Hematologic/Lymphatic Hematologic/Lymphatic: reports: Recurrent infections - All Other Systems All Other Systems: reports: Reviewed and negative Physical Exam - Vital Signs Vital Signs: Vital Signs x48h Temp Pulse Resp BP Pulse Ox 12/22/18 08:11 36.9 C 97 18 160/88 H 93 - Physical Exam General Appearance: positive: Mild distress Eyes Bilateral: positive: Normal inspection Neck: positive: No JVD, Trachea midline Cardiovascular: positive: Regular rate & rhythm Respiratory: positive: Diminished in bases, Wheezes. negative: Rales, Rhonchi Abdomen: positive: Soft, Nml bowel sounds, Obese Skin: positive: Rash (candidiasis under left breast), Other (bilateral ulcers lateral side of feet;) Extremities: positive: No pedal edema Neurologic/Psychiatric: positive: Oriented x3, Mood/affect nml, Weakness, Flat affect Palliative Care - POLST Patient has POLST: Yes POLST Status: DNR, Comfort Measures Pain: No pain, Comment (daughter reports patient with back pain escalating over several weeks; adding to fall risk and difficulty ambulating) Tiredness/Fatigue: Severe (7-10) Drowsiness/Sedation: Mild (1-3) Nausea: None Feelings of wellbeing/Perceived Quality of Life: Poor, Worsening Performance Status: Recent with acute decline, is now dependent for all ADLs, she can self feed, but will be dependent for medications, skin care, and bathing. Patient unable to ambulate at this point in time would put her at a PPS of 40% - Palliative Care Discussion: Patient does not present with some short-term memory issues, does admit to some cognitive deficits. She does able though to compare treatment options and consequences, she is able to rationally explain why she is rejecting treatment and/or further intervention as far as managing her diabetes and most likely infection. She does understand the consequences of this, that will lead to her demise and eventually to her . Patient does believe her quality of life is deteriorating, she does have multiple comorbidities, functional decline, and decreased independence. 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 She is quite relieved that her wishes will be honored as far as no further intervention and a focus on comfort. She does not present as tearful, she is no made any previous suicide attempts, she has expressed her wishes previously through a АНДРЕЙ ST and living directive. Recent does not have any financial resources, would not be able to [facility]. Lamar does feel like they can higher some short- term assistance if needed, nor she could take a break from her current job if needed as well. Counseling provided regarding hospice and hospice care, do recognize it does not pay for room and board and/or 10/06 care. Both Lamar and patient feel this would be of adequate and important support, they will need equipment given her weakness and deterioration physically. Both her understanding that she may deteriorate fairly quickly cognitively as well. Lamar does not feel any hesitation to support patient's current wishes, АНДРЕЙ ST was completed with both of their signatures with a focus on DNA R and comfort abdi ures with the goal to return home with hospice support. Counseled with hospice medical charge entry specialist and manager pediatric, they will accept patient for services given patient's goals are to focus on comfort, no further intervention or hospitalization and expected fairly quick decline. Results - Lab Results Lab results reviewed: Yes Fish Bones: 12/21/18 14:25 12/21/18 14:25 Lab and Imaging Results: Lab Results x24hrs 12/21/18 12/21/18 12/21/18 Range/Units 19:45 16:56 16:40 WBC (4.8-10.8) x10^3/uL RBC (4.20-5.40) 10^6/uL Hgb (12.0-16.0) g/dL Hct (37.0-47.0) % MCV (81.0-99.0) fL MCH (27.0-31.0) pg MCHC (32.0-36.0) g/dL RDW (12.0-15.0) % Plt Count (130-450) 10^3/uL MPV (7.9-10.8) fL Neut # (Auto) (1.5-6.6) 10^3/uL Lymph # (Auto) (1.5-3.5) 10^3/uL Carlton # (Auto) (0.0-1.0) 10^3/uL Eos # (Auto) (0.0-0.7) 10^3/uL Baso # (Auto) (0.0-0.1) 10^3/uL Absolute Nucleated RBC x10^3/uL Nucleated RBC % /100WBC PT (9.9-12.6) secs INR (0.8-1.2) VBG pH (7.31-7.41) VBG pCO2 (41-51) mmHg VBG pO2 (25-47) mmHg VBG HCO3 (23-28) mmol/L VBG Total CO2 (24-29) mmol/L VBG O2 Saturation (60-80) % VBG Base Excess (-2 - +2) mmol/L Sodium (135-145) mmol/L Potassium (3.5-5.0) mmol/L Chloride (101-111) mmol/L Carbon Dioxide (21-32) mmol/L Anion Gap (6-13) BUN (6-20) mg/dL Creatinine (0.4-1.0) mg/dL Estimated GFR (MDRD) (>89) Glucose (70-100) mg/dL POC Whole Bld Glucose 230 H (70 - 100) mg/dL Calcium (8.5-10.3) mg/dL Total Bilirubin (0.2-1.0) mg/dL AST (10-42) IU/L ALT (10-60) IU/L Alkaline Phosphatase (42-121) IU/L Total Creatine Kinase (22-269) IU/L Troponin I (<0.49) ng/mL Total Protein (6.7-8.2) g/dL Albumin (3.2-5.5) g/dL Globulin (2.1-4.2) g/dL Albumin/Globulin Ratio (1.0-2.2) Lipase (22-51) U/L Urine Color YELLOW Urine Clarity CLOUDY (CLEAR) Urine pH 5.5 (5.0-7.5) PH Ur Specific [place] 1.020 (1.002-1.030) Urine Protein 100 H (NEGATIVE) mg/dL Urine Glucose (UA) >=1000 H (NEGATIVE) mg/dL Urine Ketones 15 H (NEGATIVE) mg/dL Urine Occult Blood TRACE-INTA (NEGATIVE) Urine Nitrite NEGATIVE (NEGATIVE) Urine Bilirubin NEGATIVE (NEGATIVE) Urine Urobilinogen 0.2 (NORMAL) (NORMAL) E.U./dL Ur Leukocyte Esterase SMALL H (NEGATIVE) Urine RBC 6-10 H (0-5) /HPF Urine WBC >25 H (0-5) /HPF Urine WBC Clumps PRESENT Ur Squamous Epith Cells FEW Squamous (<= Few) Urine Bacteria Many H (None Seen) /HPF Urine Yeast PRESENT Ur Microscopic Review INDICATED Urine Culture Comments INDICATED Nasal Screen MRSA (PCR) NEGATIVE (NEGATIVE) Serum Ketones (NEGATIVE) 12/21/18 12/21/18 12/21/18 Range/Units 14:35 14:25 14:25 WBC (4.8-10.8) x10^3/uL RBC (4.20-5.40) 10^6/uL Hgb (12.0-16.0) g/dL Hct (37.0-47.0) % MCV (81.0-99.0) fL MCH (27.0-31.0) pg MCHC (32.0-36.0) g/dL RDW (12.0-15.0) % Plt Count (130-450) 10^3/uL MPV (7.9-10.8) fL Neut # (Auto) (1.5-6.6) 10^3/uL Lymph # (Auto) (1.5-3.5) 10^3/uL Carlton # (Auto) (0.0-1.0) 10^3/uL Eos # (Auto) (0.0-0.7) 10^3/uL Baso # (Auto) (0.0-0.1) 10^3/uL Absolute Nucleated RBC x10^3/uL Nucleated RBC % /100WBC PT 11.8 (9.9-12.6) secs INR 1.1 (0.8-1.2) VBG pH 7.345 (7.31-7.41) VBG pCO2 53.5 H (41-51) mmHg VBG pO2 28.5 (25-47) mmHg VBG HCO3 28.5 H (23-28) mmol/L VBG Total CO2 30.2 H (24-29) mmol/L VBG O2 Saturation 52.3 L (60-80) % VBG Base Excess 1.4 (-2 - +2) mmol/L Sodium (135-145) mmol/L Potassium (3.5-5.0) mmol/L Chloride (101-111) mmol/L Carbon Dioxide (21-32) mmol/L Anion Gap (6-13) BUN (6-20) mg/dL Creatinine (0.4-1.0) mg/dL Estimated GFR (MDRD) (>89) Glucose (70-100) mg/dL POC Whole Bld Glucose (70 - 100) mg/dL Calcium (8.5-10.3) mg/dL Total Bilirubin (0.2-1.0) mg/dL AST (10-42) IU/L ALT (10-60) IU/L Alkaline Phosphatase (42-121) IU/L Total Creatine Kinase (22-269) IU/L Troponin I < 0.04 (<0.49) ng/mL Total Protein (6.7-8.2) g/dL Albumin (3.2-5.5) g/dL Globulin (2.1-4.2) g/dL Albumin/Globulin Ratio (1.0-2.2) Lipase (22-51) U/L Urine Color Urine Clarity (CLEAR) Urine pH (5.0-7.5) PH Ur Specific [place] (1.002-1.030) Urine Protein (NEGATIVE) mg/dL Urine Glucose (UA) (NEGATIVE) mg/dL Urine Ketones (NEGATIVE) mg/dL Urine Occult Blood (NEGATIVE) Urine Nitrite (NEGATIVE) Urine Bilirubin (NEGATIVE) Urine Urobilinogen (NORMAL) E.U./dL Ur Leukocyte Esterase (NEGATIVE) Urine RBC (0-5) /HPF Urine WBC (0-5) /HPF Urine WBC Clumps Ur Squamous Epith Cells (<= Few) Urine Bacteria (None Seen) /HPF Urine Yeast Ur Microscopic Review Urine Culture Comments Nasal Screen MRSA (PCR) (NEGATIVE) Serum Ketones (NEGATIVE) 12/21/18 12/21/18 12/21/18 Range/Units 14:25 14:25 13:24 WBC 16.1 H (4.8-10.8) x10^3/uL RBC 5.46 H (4.20-5.40) 10^6/uL Hgb 17.7 H (12.0-16.0) g/dL Hct 53.0 H (37.0-47.0) % MCV 97.0 (81.0-99.0) fL MCH 32.3 H (27.0-31.0) pg MCHC 33.3 (32.0-36.0) g/dL RDW 12.9 (12.0-15.0) % Plt Count 237 (130-450) 10^3/uL MPV 9.4 (7.9-10.8) fL Neut # (Auto) 14.6 H (1.5-6.6) 10^3/uL Lymph # (Auto) 0.5 L (1.5-3.5) 10^3/uL Carlton # (Auto) 0.8 (0.0-1.0) 10^3/uL Eos # (Auto) 0.1 (0.0-0.7) 10^3/uL Baso # (Auto) 0.0 (0.0-0.1) 10^3/uL Absolute Nucleated RBC 0.01 x10^3/uL Nucleated RBC % 0.0 /100WBC PT (9.9-12.6) secs INR (0.8-1.2) VBG pH (7.31-7.41) VBG pCO2 (41-51) mmHg VBG pO2 (25-47) mmHg VBG HCO3 (23-28) mmol/L VBG Total CO2 (24-29) mmol/L VBG O2 Saturation (60-80) % VBG Base Excess (-2 - +2) mmol/L Sodium 134 L (135-145) mmol/L Potassium 3.6 (3.5-5.0) mmol/L Chloride 94 L (101-111) mmol/L Carbon Dioxide 28 (21-32) mmol/L Anion Gap 12.0 (6-13) BUN 23 H (6-20) mg/dL Creatinine 1.3 H (0.4-1.0) mg/dL Estimated GFR (MDRD) 40 L (>89) Glucose 537 H* (70-100) mg/dL POC Whole Bld Glucose 506 H* (70 - 100) mg/dL Calcium 8.9 (8.5-10.3) mg/dL Total Bilirubin 1.3 H (0.2-1.0) mg/dL AST 20 (10-42) IU/L ALT 16 (10-60) IU/L Alkaline Phosphatase 88 (42-121) IU/L Total Creatine Kinase 77 (22-269) IU/L Troponin I (<0.49) ng/mL Total Protein 6.1 L (6.7-8.2) g/dL Albumin 3.4 (3.2-5.5) g/dL Globulin 2.7 (2.1-4.2) g/dL Albumin/Globulin Ratio 1.3 (1.0-2.2) Lipase 23 (22-51) U/L Urine Color Urine Clarity (CLEAR) Urine pH (5.0-7.5) PH Ur Specific [place] (1.002-1.030) Urine Protein (NEGATIVE) mg/dL Urine Glucose (UA) (NEGATIVE) mg/dL Urine Ketones (NEGATIVE) mg/dL Urine Occult Blood (NEGATIVE) Urine Nitrite (NEGATIVE) Urine Bilirubin (NEGATIVE) Urine Urobilinogen (NORMAL) E.U./dL Ur Leukocyte Esterase (NEGATIVE) Urine RBC (0-5) /HPF Urine WBC (0-5) /HPF Urine WBC Clumps Ur Squamous Epith Cells (<= Few) Urine Bacteria (None Seen) /HPF Urine Yeast Ur Microscopic Review Urine Culture Comments Nasal Screen MRSA (PCR) (NEGATIVE) Serum Ketones SMALL H (NEGATIVE) Impression and Recommendations - Palliative Care Impression: This is a 73-year-old woman with multiple comorbidities including significant functional decline, most likely infectious etiology and hyperglycemia, over the last 1-2 weeks. She presents as failure to thrive, perceives her quality of life is deteriorating, and would like to transition her focus to comfort only and no further medical interventions. She is refusing all medical care other than comfort focused interventions. Patient to transition to hospice. Recommendations/Counseling Done: 1. Goals of care./Advanced care planning. Patient does present with decision-ma jaydon capacity, is able to reason about treatment options, appreciate the situation and its consequences and understand relevant information and communicate a choice. She has chosen comfort measures and for no further medical treatment, and transition home with hospice. Counseling with hospice medical charge entry specialist and manager pediatric regarding transition, will need equipment to manage patient at home including hospital bed, oxygen for comfort, over the bed table, and possible commode. 2. Candidiasis patient does have significant left breast rash, patient would benefit from nystatin for comfort. 3. Transition plan: Lamar is cell phone #[phone] provided to hospice to facilitate equipment. -Place abbott catheter for management of urine to ease caregiving distress compensator worker to give resources for hiring hourly care for assistance during the day. - Patient will need comfort medications on disc charge including morphine 20 mg/ml 0.25 ml (5 mg) every 2 hours for pain or respiratory distress. # 30 mls. - Lorazepam 0.5 mg tabs 1 tab every 4 hours as needed for anxiety or agitation #20 tabs. Time Spent: 75 minutes with greater than 50% of this done in counseling regarding goals of care, establishing decision-making capacity, coordination of care with hosp italist, socially responsible investment adviser, and hospice.
[2018-12-22] MEDS: FAMOTIDINE 20 MG TABLET PO SCH (12:41)
[2018-12-22] MEDS: FLUCONAZOLE 100 MG TABLET PO SCH (12:41)
[2018-12-22] MEDS: NYSTATIN POWDER 15 GM TOP SCH ×2 (12:41→22:31)
[2018-12-22] MEDS: LORazepam 0.5 MG TABLET PO PRN (18:20)
[2018-12-23] MEDS ORDERED: ZINC OXIDE 20% OINT 28.35 GM TUBE TOP PRN (01:24)
[2018-12-23] MEDS: SODIUM CHLORIDE FLUSH 0.9% 10 ML SYRINGE IVP SCH ×2 (02:11→08:04)
[2018-12-23 07:28] VITALS: BP 152/91
[2018-12-23] MEDS: POLYETHYLENE GLYCOL 3350 17 GM PACKET PO SCH (08:03)
[2018-12-23] MEDS: FLUCONAZOLE 100 MG TABLET PO SCH (08:03)
[2018-12-23] MEDS: LORazepam 0.5 MG TABLET PO PRN (08:03)
[2018-12-23] MEDS: FAMOTIDINE 20 MG TABLET PO SCH (08:03)
[2018-12-23] MEDS: NYSTATIN POWDER 15 GM TOP SCH (08:04)
--- NOTE | 2018-12-23 09:25 | Discharge Plan ---
Discharge Plan Disposition: 50 Hospice/Home DC/Xfer Condition: Poor Prescriptions: Fluconazole [Diflucan] 100 mg PO DAILY #3 tablet Morphine Sulfate [Morphine Sulf Oral (Roxanol)] 5 mg PO Q1H PRN #30 ml PRN Reason: Pain/Dyspnea Diet: Regular Activity Restrictions: Activity as Tolerated Shower Restrictions: No Driving Restrictions: No Additional Instructions or Follow Up instructions: You were hospitalized for diarrhea, weakness and increased confusion. You were treated for high blood sugar also during your hospitalization. Palliative care was consulted and you will be discharged home with hospice services.. Follow-Up Care: Hospice No Smoking: If you smoke, Please STOP! Call for help. Follow-up with: Camden Domingo DO [Primary Care Provider] -
--- NOTE | 2018-12-23 12:06 | DISCHARGE SUMMARY ---
"Discharge Summary Admit Date: 12/21/18 Discharge Date: 12/23/18 Discharging Provider: Renetta CLEARY Primary Care Provider: Camden Domingo, Code Status: Do Not Attempt Resuscitation Condition at Discharge: Poor Discharge Disposition: 50 Hospice/Home DC/Xfer - DIAGNOSES Discharge Diagnoses with Status of Each Condition: Acute metabolic encephalopathy, resolved Hyperglycemia, improved Diarrhea, improved IDDM2, stable Chronic pain, stable DJD of cervical and lumbar spine, stable Atrial fibrillation, stable Moderate to severe pulmonary hypertension, stable COPD w/o exacerbation, stable h/o fall, stable - HPI History of Present Illness: As per Caridad Galan H&P dated 12/21/2018: 'Nela Toribio is a 73-year old female with a past medical history of hypertension, hyperlipidemia, chronic atrial fibrillation, PVD, PAD, diastolic CHF NYHA class 3, LVH, pulmonary hypertension, dyspnea, COPD, MRSA infection of her chronic diabetic foot ulcers, diabetes mellitus type 2-insulin dependent, hypothyroidism, tremors, early Parkinson's disease, 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 The patient has been living with her daughter since September of 2018 and has frequent falls, hospitalizations, and generally doing poorly for the past few months. The patient's daughter, Lamar who is her POA states that her mother has been more confused lately, not sleeping, well, and has been profoundly weak. Lamar states that her is disabled and has short term memory loss, so has not been able to ensure that her mother takes all of her medications as prescribed. The patient complains of nausea, diarrhea and has not been able to care for her self. Labs show an elevated WBC count of 16.1, anemia with an H/H of 17.7/53, a low sodium of 134, a normal anion gap of 12, an elevated creatinine of 1.3, a glucose of 534, an elevated bili of 1.3, a PCO2 of 53.5, a bicarb of 28.5, a CO2 of 30.2 and a low O2 saturation of 52.3. On my exam, the patient was tearful and hopeless stating that she feels to be a burden to her family, and chooses n ot to continue treating any of her chronic illnesses. She states that the final straw was when she recently had to change insulin pens making the new ones very difficult to read. She states that with her tremors that have become worse, she does not have the strength to poke her fingers for blood sugar checks. Her daughter, Lamar is in agreement and they both wish for further medical care to help manage pain, and her symptoms.' - CONSULTS | PROCEDURES Consultations: Palliative Care Medicine - HOSPITAL COURSE Hospital Course: Upon admission, the patient decided to focus on comfort measures instead of treating her chronic conditions. Hospice was consulted. A abbott catheter was placed for ease of caregiving at home. She received fluconazole and nystatin cream for her candidiasis of her left breast. She was given a regular diet and all glucose checks and insulin was discontinued. Her diarrhea was treated with lomotil and improved by the day of discharge. PRN morphine was made available for her chronic pain. In regards to her chronic afib, her metoprolol was not continued on admission. She is not on anticoagulation due to her frequent falls. Her lasix was held on admission, and she did not appear to have evidence of fluid overload. For her COPD, duonebs PRN were available. She was on 1L NC on the day of discharge, for comfort only. She discharged with hospice services on 12/23/2018. - ALLERGIES Allergies/Adverse Reactions: Allergies Allergy/AdvReac Type Severity Reaction Status Date / Time Sulfa (Sulfonamide AdvReac Intermediate Edema Verified 10/18/18 10:52 Antibiotics) lisinopril AdvReac Itching Verified 10/18/18 10:52 chest nuts Allergy Anaphylaxis Uncoded 10/18/18 10:52 - MEDICATIONS Home Medications: Ambulatory Orders Medication Instructions Recorded Confirmed cloNIDine HCl [Clonidine HCl] 0.1 mg PO QPM 10/12/13 12/22/18 Bisacodyl [Dulcolax] 10 mg PO DAILY PRN 03/30/14 12/22/18 Acetaminophen [Tylenol Extra 500 mg PO TID PRN 07/17/14 12/22/18 Strength] Atorvastatin Calcium 80 mg PO QPM 05/22/17 12/22/18 Docusate Sodium 250Mg Capsule 250 mg PO BID PRN 05/22/17 12/22/18 [Colace 250Mg Capsule] Lorazepam [Ativan] 1 mg PO QPM 05/22/17 12/22/18 Losartan Potassium [Cozaar] 100 mg PO DAILY 05/22/17 12/22/18 Escitalopram [Lexapro] 20 mg PO DAILY 10/18/18 12/22/18 Albuterol Sulfate [Proair Hfa 1 - 2 puffs INH Q4H PRN #1 inhaler 10/20/18 12/22/18 Inhaler] Furosemide [Lasix] 20 mg PO DAILY #10 tablet 10/20/18 12/22/18 Aspirin [Aspirin EC] 81 mg PO DAILY 12/22/18 12/22/18 Insulin Glargine [Lantus Solostar] 40 unit SQ DAILY 12/22/18 12/22/18 Insulin Lispro [Humalog Kwikpen 10 unit SUBQ TIDWM 12/22/18 12/22/18 U-100] Morphine Sulfate [Morphine Sulf 5 mg PO Q1H PRN #30 ml 12/22/18 Oral (Roxanol)] Potassium Citrate [Potassium 10 meq PO DAILY 12/22/18 12/22/18 Citrate ER] Triamcinolone 0.1% Cream [Kenalog 1 applic TOP DAILY PRN 12/22/18 12/22/18 0.1% Cream] Acetaminophen [Tylenol] 650 mg PO Q4HR PRN tablet 12/23/18 Fluconazole [Diflucan] 100 mg PO DAILY #3 tablet 12/23/18 - PHYSICAL EXAM AT DISCHARGE General Appearance: positive: No acute distress Eyes Bilateral: positive: Normal inspection, PERRL, EOMI ENT: positive: ENT inspection nml Neck: positive: Nml inspection, Trachea midline Respiratory: positive: No respiratory distress, Breath sounds nml Cardiovascular: positive: No murmur, Irregularly irregular Peripheral Pulses: positive: 2+ Abdomen: positive: Non-tender, Nml bowel sounds, No distention Skin: positive: Warm, Dry Extremities: positive: Nml appearance, No pedal edema Neurologic/Psychiatric: positive: Oriented x3 - LABS Result Diagrams: 12/21/18 14:25 12/21/18 14:25 - DIAGNOSTIC IMAGING Diagnostic Imaging Results: Final report reviewed Diagnostic Imaging Results Comments: 2 view CXR completed 12/21/2018 with probably central vascular crowding - FOLLOW UP Follow Up: Hospice has taken over care. Hospice admission to be completed today at 230pm - TIME SPENT Time Spent in Discharge (Minutes): 45"
== END 2018-12-23 14:34 | disposition hospice, home (50) ==
LOC: ED 12:44 → MS2 16:55 → INTOOBSV 16:55
PROVIDERS: ADMIT Nurse Practitioner; ATTEND Nurse Practitioner
DX: G93.41 Metabolic encephalopathy (principal); E11.65 Type 2 diabetes mellitus with hyperglycemia; K52.9 Noninfective gastroenteritis and colitis, unspecified; G89.29 Other chronic pain; M47.812 Spondylosis without myelopathy or radiculopathy, cervical region; M47.816 Spondylosis without myelopathy or radiculopathy, lumbar region; I48.2 Chronic atrial fibrillation; I27.20 Pulmonary hypertension, unspecified; J44.9 Chronic obstructive pulmonary disease, unspecified; I11.0 Hypertensive heart disease with heart failure; I50.30 Unspecified diastolic (congestive) heart failure; E78.5 Hyperlipidemia, unspecified; E11.51 Type 2 diabetes mellitus with diabetic peripheral angiopathy without gangrene; E03.9 Hypothyroidism, unspecified; G20 Parkinson's disease; G93.2 Benign intracranial hypertension; G91.9 Hydrocephalus, unspecified; R29.6 Repeated falls; D72.829 Elevated white blood cell count, unspecified; D64.9 Anemia, unspecified; E87.1 Hypo-osmolality and hyponatremia; N17.9 Acute kidney failure, unspecified; R62.7 Adult failure to thrive; Z68.33 Body mass index [BMI] 33.0-33.9, adult; R53.1 Weakness; B37.2 Candidiasis of skin and nail; E86.0 Dehydration; E11.42 Type 2 diabetes mellitus with diabetic polyneuropathy; E11.621 Type 2 diabetes mellitus with foot ulcer; L97.509 Non-pressure chronic ulcer of other part of unspecified foot with unspecified severity; K21.9 Gastro-esophageal reflux disease without esophagitis; R32 Unspecified urinary incontinence; R35.1 Nocturia; R35.0 Frequency of micturition; H54.7 Unspecified visual loss; H91.90 Unspecified hearing loss, unspecified ear; J32.9 Chronic sinusitis, unspecified; F32.9 Major depressive disorder, single episode, unspecified; F41.0 Panic disorder [episodic paroxysmal anxiety]; F43.10 Post-traumatic stress disorder, unspecified; Z72.89 Other problems related to lifestyle; Z51.5 Encounter for palliative care; Z66 Do not resuscitate; Z79.4 Long term (current) use of insulin; Z79.82 Long term (current) use of aspirin; Z79.51 Long term (current) use of inhaled steroids; Z91.81 History of falling; Z87.01 Personal history of pneumonia (recurrent); Z87.891 Personal history of nicotine dependence; Z86.73 Personal history of transient ischemic attack (TIA), and cerebral infarction without residual deficits; Z91.19 Patient's noncompliance with other medical treatment and regimen; Z86.14 Personal history of Methicillin resistant Staphylococcus aureus infection
CPT/HCPCS: 36415; 71046; 80053; 81001; 82009; 82550; 82803; 83690; 84484; 85025; 85610; 87086; 87640; 96360; 99223; 99283; 99285; A9270; J1815; 81003